=== PATIENT | male | born 1940 | race Caucasian/White ===

== ENCOUNTER → 2016-11-03 | Outpatient (CLI) | payer MEDICARE | LOC: LAB.NP 14:03 | PROVIDERS: ATTEND Family Medicine | DX: L03.031 Cellulitis of right toe (principal) ==

== ENCOUNTER 2016-11-16 10:48 | Emergency (ER) | payer MEDICARE ==
--- NOTE | 2016-11-16 11:32 | ED.PDOC ---
History of Present Illness - General Chief Complaint: Upper Extremity Injury Stated Complaint: hand pain, swelling Time Seen by Provider: 11/16/16 11:25 Source: patient Exam Limitations: no limitations - History of Present Illness Initial Comments: Mr. Lema 76 y/o male stated that got up from bed about 5am yesterday to turn on his table lamp but he got off balance tried to brace himself with his right hand hitting the wall causing pain /swelling on his right hand .denies head , neck,shoulder injuries. Occurred: yesterday Pain - Upper Extremity: moderate: Hand, right Method of Injury: fell Improving Factors: rest Worsening Factors: movement Associated Symptoms: pain Allergies/Adverse Reactions: Allergies Iodine Allergy (Verified 10/04/15 21:31) Povidone Iodine [From Betadine] Allergy (Verified 10/15/15 07:40) Home Medications: Ambulatory Orders Acetaminophen [Tylenol] 650 mg PO Q4H PRN 10/03/15 Aspirin [Aspirin EC] 81 mg PO DAILY 10/03/15 Gabapentin 300 mg PO BEDTIME 10/03/15 Ibuprofen [Advil] 400 mg PO Q4H 10/03/15 Mupirocin Calcium (Topical) [Bactroban] 2 % TOP BID 10/03/15 Nitroglycerin 0.4 mg Tab [Nitrostat] 0.4 mg SL Q5M PRN 10/03/15 Clindamycin HCl 300 mg PO Q8H #18 cap 10/06/15 Sulfamethoxazole-Trimethoprim [Bactrim Ds 800-160 mg] 1 tab PO BID #20 tab 10/06 Acetaminophen W/ Codeine [Tylenol W/ CODEINE #3] 1 ea PO Q4HR 10/15/15 Ufuvnwgfndm-Rjeoqyeg-Pqqi Sulf [Clear Eyes Cooling Comfor] 1 dona OP PRN PRN 04/23 Review of Systems - Review of Systems Constitutional: States: no symptoms reported EENTM: States: no symptoms reported Respiratory: States: no symptoms reported Cardiology: States: no symptoms reported Gastrointestinal/Abdominal: States: no symptoms reported Genitourinary: States: no symptoms reported Musculoskeletal: States: joint pain - right hand Skin: States: other Neurological: States: no symptoms reported Endocrine: States: no symptoms reported Hematologic/Lymphatic: States: no symptoms reported Past Medical History (General) - Patient Medical History Hx Seizures: No Hx Stroke: No Hx Dementia: No Hx Asthma: No Hx of COPD: Yes Hx Cardiac Disorders: Yes Hx Congestive Heart Failure: No Hx Pacemaker: No Hx Hypertension: Yes Hx Thyroid Disease: No Hx Diabetes: No Hx Gastroesophageal Reflux: No Hx Renal Disease: No Hx Cancer: No Hx of HIV: No Hx Hepatitis C: No Hx MRSA: No Surgical History: appendectomy Other Surgeries:: right hip,knee and foot - Vaccination History Hx Influenza Vaccination: Yes - 2015 - Social History Hx Tobacco Use: Yes - quit Hx Alcohol Use: No Hx Substance Use: No Hx Substance Use Treatment: No Hx Depression: No Hx Physical Abuse: No Hx Emotional Abuse: No - Activities of Daily Living Patient Lives Alone: No - lives with son Grooming Ability: Independent Eating (Feeding) Ability: Independent Toileting Ability: Independent Family Medical History - Family History Mother Family History: Unknown Living Status: Hx Family Diabetes: Yes - dad Hx Family Cancer: Yes - throat-mom Father Family History: Unknown Living Status: Physical Exam - Physical Exam General Appearance: Alert, No apparent distress Eyes, Ears, Nose, Throat Exam: PERRL/EOMI, normal ENT inspection, TMs normal, pharynx normal Neck: non-tender, full range of motion, supple, normal inspection Cardiovascular/Respiratory: regular rate, rhythm, no M/R/G, normal peripheral pulses, no JVD, normal breath sounds, no respiratory distress, extra beats Abdominal Exam: no organomegaly, no hernia Back Exam: normal inspection, no CVA tenderness, no vertebral tenderness Shoulder Exam: non-tender, no evidence of injury Elbow/Forearm Exam: non-tender, normal ROM Wrist Exam: bone tenderness, limited ROM Hand Exam: bone tenderness, ecchymosis - dorsal aspect hand right Progress - EKG/XRAY/CT XRAY: hand - right -no fracture noted Departure - Departure Clinical Impression: Contusion of hand with skin surface intact Fall at home Qualifiers: Encounter type: initial encounter Qualifier Code: (W19.XXXA) Unspecified fall, initial encounter Time of Disposition: 12:41 Disposition: Discharge to Home or Self Care Condition: Good Departure Forms: ED Discharge - Pt. Copy, Patient Portal Self Enrollment Instructions: DI for Contusion Home Medications: Ambulatory Orders Acetaminophen [Tylenol] 650 mg PO Q4H PRN 10/03/15 Aspirin [Aspirin EC] 81 mg PO DAILY 10/03/15 Gabapentin 300 mg PO BEDTIME 10/03/15 Ibuprofen [Advil] 400 mg PO Q4H 10/03/15 Mupirocin Calcium (Topical) [Bactroban] 2 % TOP BID 10/03/15 Nitroglycerin 0.4 mg Tab [Nitrostat] 0.4 mg SL Q5M PRN 10/03/15 Clindamycin HCl 300 mg PO Q8H #18 cap 10/06/15 Sulfamethoxazole-Trimethoprim [Bactrim Ds 800-160 mg] 1 tab PO BID #20 tab 10/06 Acetaminophen W/ Codeine [Tylenol W/ CODEINE #3] 1 ea PO Q4HR 10/15/15 Rqnnkvssqod-Xitamora-Zunt Sulf [Clear Eyes Cooling Comfor] 1 dona OP PRN PRN 04/23
--- NOTE | 2016-11-16 12:17 | RAD ---
EXAM DESCRIPTION: Right hand series. CLINICAL HISTORY: Right hand pain. COMPARISON: None. TECHNIQUE: Three views were submitted for evaluation. FINDINGS: Considerable degenerative change of the DIP joints and base of thumb compatible with osteoarthritis. No fracture, dislocation, or suspicious radiopaque foreign body is seen. Soft tissues are unremarkable. Further imaging could be considered if there is clinical concern for an occult scaphoid fracture (pain over the anatomical snuff box). IMPRESSION: No evidence of fracture on today's exam. Osteoarthritis of the hand noted. Electronically signed by: Devonte Patterson MD 11/16/2016 12:15
[2016-11-16 13:07] VITALS: BP 156/93; O2SAT 95
== END 2016-11-16 13:06 | disposition home or self-care (01) ==
LOC: ER 10:48
DX: S60.221A Contusion of right hand, initial encounter (principal); J44.9 Chronic obstructive pulmonary disease, unspecified; I10 Essential (primary) hypertension; Z79.899 Other long term (current) drug therapy; Z88.8 Allergy status to other drugs, medicaments and biological substances; Z79.82 Long term (current) use of aspirin; Z87.891 Personal history of nicotine dependence; W22.01XA Walked into wall, initial encounter; Y92.009 Unspecified place in unspecified non-institutional (private) residence as the place of occurrence of the external cause

== ENCOUNTER → 2016-11-23 | Outpatient (CLI) | payer MEDICARE ==
--- NOTE | 2016-11-23 15:25 | MRI ---
EXAM DESCRIPTION: MRI right foot without and with intravenous contrast CLINICAL HISTORY: 76 y/o M, OSTEOMYLETIS chronic since July subsequent evaluation COMPARISON: July 21, 2016 TECHNIQUE: MR imaging right foot without and with intravenous gadolinium FINDINGS: Previous amputation of the great toe at the MTP joint. There is ill-defined ossification extending medially from the metatarsal head likely due to the bone destruction fragmentation and reactive changes. There is probably a pathologic fracture through the area of osteomyelitis in the head of the 1st metatarsal. The osteonecrosis/ Freiberg's infraction is again visualized in the 3rd metatarsal head with dorsal subluxation at the MTP joint. Prominent fluid signal and intraosseous edema is noted in the 1st metatarsal head and neck with partial dorsal displacement of the head fragment and arthrosis/ edema of the hallux sesamoids. Mild degenerative change and subchondral edema of the 4th MTP joint. The edematous tissue/granulation at the amputation site has decreased in signal and size. The destructive process and edema in the 1st metatarsal head has decreased slightly but there is residual enhancement including rim enhancement within the 1st metatarsal head and neck region cannot exclude residual osteomyelitis. There appears to be increasing destruction at the pseudarthrosis of the 1st metatarsal head based on the appearance of the sagittal images. There is a more clear delineation of this area on the previous study. The rind of spur synovitis soft tissue mass and inflammation extends to the articulation of the sesamoids. There is also extensive tendinosis and scarring of the flexor hallucis tendon. 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 Electronically signed by: Gómez Marrero MD 11/23/2016 15:24
== END | disposition home or self-care (01) ==
LOC: MRI 13:00
PROVIDERS: ATTEND Podiatrist Foot & Ankle Surgery
DX: M86.9 Osteomyelitis, unspecified (principal)

== ENCOUNTER → 2016-12-12 | Outpatient (CLI) | payer MEDICARE | END | disposition home or self-care (01) | LOC: GMAB 14:17 | PROVIDERS: ATTEND Family Medicine | DX: I70.201 Unspecified atherosclerosis of native arteries of extremities, right leg (principal) ==

== ENCOUNTER → 2017-03-17 | Outpatient (CLI) | payer MEDICARE | LOC: GMAB 12:55 | PROVIDERS: ATTEND Family Medicine | DX: L03.115 Cellulitis of right lower limb (principal) ==

== ENCOUNTER → 2017-07-04 | Outpatient (CLI) | payer MEDICARE | END | disposition home or self-care (01) | LOC: NC 10:13 | PROVIDERS: ATTEND Family Medicine | DX: M86.171 Other acute osteomyelitis, right ankle and foot (principal); I11.9 Hypertensive heart disease without heart failure; J44.9 Chronic obstructive pulmonary disease, unspecified; Z12.5 Encounter for screening for malignant neoplasm of prostate; I10 Essential (primary) hypertension | CPT/HCPCS: 80053; 80061; 84443; 85025; G0103 ==

== ENCOUNTER 2017-07-26 10:33 | Inpatient (IN) | payer MEDICARE ==
[2017-07-26] MEDS ORDERED: CHLORHEXIDINE GLUCONATE 4 % 15 ML UD TOP ONE ×2 (11:14→21:05)
--- NOTE | 2017-07-26 11:20 | ED.PDOC ---
History of Present Illness - General Chief Complaint: Skin/Abrasion/Tear Stated Complaint: wound infection Time Seen by Provider: 07/26/17 10:38 Source: patient, RN notes reviewed, Vital Signs reviewed Exam Limitations: no limitations - History of Present Illness Initial Comments: Patient comes in with infection in the 3rd & 4th toes of his right foot. He has a history of osteomyolitis in that foot with removal of 1st & 2nd toes and 1st metatarsal. He noticed increased redness and swelling in his toes 2 days ago. Redness has spread up his foot to his ankle. He is being followed by Dr. Calix - Lead Architect who is seeing him weekly and doing liquid skin grafts on his area of amputation. Patient last saw him last week and the is out of town this week. Timing/Duration: getting worse - over past 2 days Severity: moderate Location: feet Improving Factors: nothing Worsening Factors: nothing Associated Symptoms: change in skin texture Allergies/Adverse Reactions: Allergies Iodine Allergy (Verified 07/26/17 10:58) Povidone Iodine [From Betadine] Allergy (Verified 07/26/17 10:58) Home Medications: Ambulatory Orders Gabapentin 300 mg PO BEDTIME 10/03/15 Albuterol Sulfate [Proair Hfa] 2 puff INH Q6H PRN 07/26/17 Tramadol HCl 50 mg PO Q6H PRN 07/26/17 Past Medical History (General) - Patient Medical History Hx Seizures: No Hx Stroke: No Hx Dementia: No Hx Asthma: No Hx of COPD: Yes Hx Cardiac Disorders: Yes - PVD Hx Congestive Heart Failure: No Hx Pacemaker: No Hx Hypertension: Yes Hx Thyroid Disease: No Hx Diabetes: No Hx Gastroesophageal Reflux: No Hx Renal Disease: No Hx Cancer: No Hx of HIV: No Hx Hepatitis C: No Hx MRSA: No - Vaccination History Hx Influenza Vaccination: No Hx Pneumococcal Vaccination: No - Social History Hx Tobacco Use: Yes - quit 1959's Hx Alcohol Use: No Hx Substance Use: No Hx Substance Use Treatment: No Hx Depression: No Hx Physical Abuse: No Hx Emotional Abuse: No - Female History Patient : No Family Medical History - Family History Mother Family History: Unknown Living Status: Hx Family Diabetes: Yes - dad Hx Family Cancer: Yes - throat-mom Father Family History: Unknown Living Status: Progress - Results/Orders Results/Orders: Laboratory Tests 07/26/17 07/26/17 07/26/17 11:30 11:30 11:30 WBC 8.1 RBC 4.27 L Hgb 14.8 Hct 42.8 MCV 100.2 H MCH 34.6 H MCHC 34.6 RDW 13.9 Plt Count 213 MPV 8.3 Absolute Neuts (auto) 5.20 Absolute Lymphs (auto) 1.70 Absolute Monos (auto) 0.80 Absolute Eos (auto) 0.30 Absolute Basos (auto) 0.10 Neutrophils % 64.3 Lymphocytes % 21.5 Monocytes % 9.5 H Eosinophils % 3.9 Basophils % 0.8 Sodium 133 L Potassium 3.6 Chloride 100 L Carbon Dioxide 21 Anion Gap 15.6 BUN 7 Creatinine 0.82 BUN/Creatinine Ratio 8.5 L Random Glucose 98 Serum Osmolality 264.3 L Lactic Acid 2.1 Calcium 8.9 Total Bilirubin 0.8 AST 28 ALT 20 Alkaline Phosphatase 49 Serum Total Protein 7.6 Albumin 4.2 Globulin 3.4 Albumin/Globulin Ratio 1.2 - EKG/XRAY/CT XRAY: Foot: Impaction fx 3rd metatarsal o/w stable per Radiologist Departure - Departure Clinical Impression: Cellulitis and abscess of foot Time of Disposition: 13:12 Disposition: Admit Patient Condition: Good Departure Forms: ED Discharge - Pt. Copy, Patient Portal Self Enrollment Referrals: Eloy Harris MD [Primary Care Provider] - 1-2 Weeks Home Medications: Ambulatory Orders Gabapentin 300 mg PO BEDTIME 10/03/15 Albuterol Sulfate [Proair Hfa] 2 puff INH Q6H PRN 07/26/17 Tramadol HCl 50 mg PO Q6H PRN 07/26/17 Decision To Admit - Decistion To Admit Decision to Admit Reason: Admit from ER Decision to Admit Date: 07/26/17 Decision to Admit Time: 13:13
--- NOTE | 2017-07-26 12:12 | RAD ---
EXAM DESCRIPTION: Foot,Right 3 Views CLINICAL HISTORY: 77 years, Male, cellulitis w/ Hx of osteomyelitis COMPARISON: Plain radiograph February 05, 2014. MRI study November 23, 2016, MRI FINDINGS: Amputation of the 1st digit at the level of the tarsometatarsal joints. Interval amputation 2nd digit at the level the metatarsal phalangeal joint. 2nd metatarsal head appears fairly normal. The 3rd and 4th metatarsal heads are flattened and irregular similar to prior MRI study. This probably Freiberg infraction Irregularity with periosteal reaction distal shaft proximal 3rd phalanx. Slight varus angulation. The appearance suggest a subacute impacted fracture. Chronic appearing soft tissue calcification medial to the distal 4th phalanx. IMPRESSION: 1. Postsurgical changes with interval amputation of the 2nd digit at the metatarsal joint 2. Flattening of the 3rd and 4th metatarsal heads similar to November MRI study probably due to Freiberg infraction 3. Irregularity of the distal 3rd phalanx with periosteal reaction suggesting a subacute impacted fracture proximal 3rd phalanx. 4. Other bones and joints otherwise stable without visualized bony destruction. Electronically signed by: Gus Reyes MD 07/26/2017 12:11 PM CDT
[2017-07-26] MEDS ORDERED: PIPERACILLIN/TAZOBACTAM 3.375 GM in SODIUM CHLORIDE 0.9% 100ML 100 ML IVPB ONE (13:10)
[2017-07-26] MEDS ORDERED: PIPERACILLIN/TAZOBACTAM 3.375 GM VIAL IVPB ONE (13:20)
[2017-07-26] MEDS ORDERED: SODIUM CHLORIDE 0.9% 100ML 100 ML IVPB ONE (13:20)
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
[2017-07-26] MEDS: HYDROcodone 5MG/APAP 325MG 1 EA TAB PO PRN (16:58)
[2017-07-26] MEDS ORDERED: MAGNESIUM HYDROXIDE 30 ML UD PO PRN (16:59)
[2017-07-26] MEDS ORDERED: SODIUM CHLORIDE 0.9% (FLUSH) 10 ML SYG IV PRN (16:59)
[2017-07-26] MEDS ORDERED: LEVALBUTEROL NEBS 1.25 MG/3 ML VIAL INH PRN (16:59)
[2017-07-26] MEDS ORDERED: IV SET AND CAP CHANGE INJ INJ SCH (17:00)
[2017-07-26] MEDS ORDERED: VANCOMYCIN HCL INJ 1,000 MG in SODIUM CHLORIDE 0.9% 250ML 250 ML IVPB SCH (17:30)
[2017-07-26] MEDS ORDERED: VANCOMYCIN PER PHARMACY INJ SCH ×2 (17:30→20:00)
[2017-07-26] MEDS ORDERED: levoFLOXacin 500MG IV 100 ML IVPB ONE (17:52)
[2017-07-26] MEDS: levoFLOXacin 500MG IV 500 MG in PREMIX BAG 1 BAG IVPB SCH (18:13)
[2017-07-26] MEDS: KCL 20 MEQ/NS 1,000 ML IVS PRN (18:13)
[2017-07-26] MEDS ORDERED: SODIUM CHLORIDE 0.9% 250ML 250 ML ONE (19:24)
[2017-07-26] MEDS ORDERED: VANCOMYCIN HCL INJ 1,000 MG VIAL IVPB ONE (19:25)
[2017-07-26] MEDS: VANCOMYCIN HCL INJ 1,000 MG in SODIUM CHLORIDE 0.9% 250ML 250 ML IVPB SCH (20:30)
[2017-07-26] MEDS: CHLORHEXIDINE GLUC 4% 15ML 45 ML, WATER FOR IRRIGATION 1,000 ML TOP SCH ×2 (21:06)
[2017-07-27] MEDS: HYDROcodone 5MG/APAP 325MG 1 EA TAB PO PRN ×3 (01:42→22:14)
[2017-07-27] MEDS: OMEPRAZOLE CAP 20 MG CAP PO SCH (06:32)
[2017-07-27] MEDS ORDERED: VANCOMYCIN HCL INJ 1,000 MG VIAL IVPB ONE ×2 (07:34→19:56)
[2017-07-27] MEDS ORDERED: SODIUM CHLORIDE 0.9% 250ML 250 ML ONE ×2 (07:34→19:56)
[2017-07-27] MEDS: VANCOMYCIN HCL INJ 1,000 MG in SODIUM CHLORIDE 0.9% 250ML 250 ML IVPB SCH ×2 (08:23→20:20)
[2017-07-27] MEDS: CHLORHEXIDINE GLUC 4% 15ML 45 ML, WATER FOR IRRIGATION 1,000 ML TOP SCH ×4 (09:17→20:27)
--- NOTE | 2017-07-27 11:14 | US ---
EXAM DESCRIPTION: Extremity,Lower RT Arteries CLINICAL HISTORY: 77 years Male, ischemic infection toes COMPARISON: None. FINDINGS: Bilateral lower extremity arterial Doppler shows no occluded segment. Multiphasic waveforms are present throughout. IMPRESSION: No flow-limiting stenosis observed. Electronically signed by: Romie Hays MD 07/27/2017 11:12 AM CDT
[2017-07-27] MEDS: KCL 20 MEQ/NS 1,000 ML IVS PRN (11:40)
--- NOTE | 2017-07-27 12:27 | PCM.CORE ---
Physician DVT/VTE - Nurse DVT Assessment & Total Each Risk Factor Represents 3 Points: Age over 75 years Each Risk Factor is 1 Point: Varicose Veins/Edema Legs DVT Assessment Score: 4 - 5 or more Very High Risk Treatments: Sequential Compression Device Pharmacological: Enoxaparin 40mg SQ Daily
[2017-07-27] MEDS: ENOXAPARIN SODIUM 40 MG/0.4 ML SYG SUBCU SCH (13:09)
--- NOTE | 2017-07-27 13:14 | PN ---
DATE: 07/27/17 SUBJECTIVE: In many ways, the patient states that his foot is less painful today. It is still quite red, especially involving the right toe. Appetite is pretty good. No shortness of breath, no nausea or vomiting. OBJECTIVE: VITAL SIGNS: Afebrile. Pulse 87. Blood pressure 163/80. Pulse oximetry 95% on room air. LUNGS: Diminished breath sounds. HEART: Regular. ABDOMEN: Soft. EXTREMITIES: Still with significant swelling and discoloration of the right fourth toe with the left toe as well as the presence of pus drainage is much improved today compared to yesterday. Cleansing and dressing will continue. LABORATORY: White count 9,900, hemoglobin 15.2 with a macrocytic/hyperchromic presentation. Chemistries show potassium up to 4, BUN 9, glucose 107, beta natriuretic peptide 122. Urinalysis shows a trace of hematuria. Culture of the wound initially shows probable skin contaminant with insignificant colony count. Whether this was an adequate specimen is to be determined. Lower extremity arterial ultrasound Doppler study reveals no flow limiting stenosis noted. Peripheral pulses are palpable as we attempt to continue the evaluation as to the etiology for the significant tissue loss noted in the right foot. ASSESSMENT: 1. Significant right foot infected third and fourth toes with pus formation, swelling and discoloration with at this time no evidence of an ischemic condition contributing to it. Continued podiatry observation and treatment important. 2. Probable peripheral vascular occlusive disease with evaluation and observation to continue. 3. Chronic dysphagia, probably secondary to esophageal strictures with the patient tolerating a pureed diet. 4. History of ethanol intake in the past with no evidence of withdrawal symptoms at this time. PLAN: We are continuing the combined vancomycin per pharmacy protocol as well as fluoroquinolone with Levaquin and continued local therapy. We will consider having Dr. Tapia see the patient the first of next week when he returns and he will then be able to assist with ongoing care. Slowly increase activity level. Continue with DVT prophylaxis. #[id number] [facility]
[2017-07-27] MEDS ORDERED: levoFLOXacin 500MG IV 100 ML IVPB ONE (17:15)
[2017-07-27] MEDS: levoFLOXacin 500MG IV 500 MG in PREMIX BAG 1 BAG IVPB SCH (17:38)
[2017-07-28] MEDS: KCL 20 MEQ/NS 1,000 ML IVS PRN (02:21)
[2017-07-28] MEDS: OMEPRAZOLE CAP 20 MG CAP PO SCH (06:34)
[2017-07-28] MEDS ORDERED: SODIUM CHLORIDE 0.9% 250ML 250 ML ONE ×2 (07:47→19:18)
[2017-07-28] MEDS ORDERED: VANCOMYCIN HCL INJ 1,000 MG VIAL IVPB ONE ×2 (07:48→19:18)
[2017-07-28] MEDS: HYDROcodone 5MG/APAP 325MG 1 EA TAB PO PRN (07:53)
[2017-07-28] MEDS: VANCOMYCIN HCL INJ 1,000 MG in SODIUM CHLORIDE 0.9% 250ML 250 ML IVPB SCH ×2 (07:55→20:11)
[2017-07-28] MEDS: CHLORHEXIDINE GLUC 4% 15ML 45 ML, WATER FOR IRRIGATION 1,000 ML TOP SCH ×4 (10:18→20:53)
[2017-07-28] MEDS: ENOXAPARIN SODIUM 40 MG/0.4 ML SYG SUBCU SCH (13:21)
[2017-07-28] MEDS: SODIUM CHLORIDE 0.9% (FLUSH) 10 ML SYG IV SCH ×2 (13:22→20:11)
--- NOTE | 2017-07-28 13:42 | PN ---
SUPERVISING PHYSICIAN: Dioni Law MD DATE: 07/28/17 SUBJECTIVE: The patient is lying in his hospital bed. He has no complaints other than he would like to get up and walk around. Pain is minimal in his foot. OBJECTIVE: VITAL SIGNS: Afebrile. Heart rate 63. Blood pressure 158/72. Respiratory rate 18. O2 saturation 95% on room air. LUNGS: Essentially clear to auscultation bilaterally. CARDIAC: Regular rate and rhythm. ABDOMEN: Soft, nondistended, nontender. Bowel sounds are positive. EXTREMITIES: No cyanosis or edema. His bilateral pedal pulses are palpable at + 2. He has a dressing to the right foot that is dry and intact. NEUROLOGIC: Awake, alert and oriented times three. LABORATORY: There are no labs or films to report today. ASSESSMENT: 1. Cellulitis of the right foot involving the third and fourth toes with pus, swelling and discoloration. There is no evidence of an ischemic condition contributing to it. 2. Questionable peripheral vascular occlusive disease with evaluation and observation to continue. 3. Chronic dysphagia, probably secondary to esophageal strictures with the patient tolerating a pureed diet. 4. History of significant alcohol intake in the past with no evidence of withdrawal symptoms at this point. PLAN: We will continue present supportive care. I am still awaiting the culture reports on his toes so we can make sure he is on appropriate antibiotics. I have discontinued his IV fluids and we will continue his vancomycin and Levaquin for an additional day. Hopefully he can go home tomorrow with close followup with Dr. Tapia for evaluation of the toes in case they need to be amputated. I have also encouraged him to ambulate on his own as long as his dressing is intact. I have encouraged good pulmonary hygiene. I have ordered routine labs for in the morning. We will continue to monitor the patient closely and follow as needed. Dr. Law is the collaborating physician and available for consultation. #[id number] [facility]
[2017-07-28] MEDS ORDERED: levoFLOXacin 500MG IV 100 ML IVPB ONE (17:10)
[2017-07-28] MEDS: levoFLOXacin 500MG IV 500 MG in PREMIX BAG 1 BAG IVPB SCH (17:14)
[2017-07-28] MEDS ORDERED: diphenhydrAMINE HCL 50 MG/ML VIAL IV PRN (18:27)
[2017-07-29] MEDS: HYDROcodone 5MG/APAP 325MG 1 EA TAB PO PRN ×2 (04:38→08:55)
[2017-07-29] MEDS: OMEPRAZOLE CAP 20 MG CAP PO SCH (06:39)
[2017-07-29] MEDS ORDERED: SODIUM CHLORIDE 0.9% 250ML 250 ML ONE (07:35)
[2017-07-29] MEDS ORDERED: VANCOMYCIN HCL INJ 1,000 MG VIAL IVPB ONE (07:35)
[2017-07-29] MEDS: VANCOMYCIN HCL INJ 1,000 MG in SODIUM CHLORIDE 0.9% 250ML 250 ML IVPB SCH (08:05)
[2017-07-29] MEDS: SODIUM CHLORIDE 0.9% (FLUSH) 10 ML SYG IV SCH (08:57)
[2017-07-29] MEDS: CHLORHEXIDINE GLUC 4% 15ML 45 ML, WATER FOR IRRIGATION 1,000 ML TOP SCH ×2 (08:59)
[2017-07-29] MEDS ORDERED: levoFLOXacin 500 MG TAB PO SCH (09:00)
[2017-07-29] MEDS: ENOXAPARIN SODIUM 40 MG/0.4 ML SYG SUBCU SCH (13:07)
[2017-07-29] MEDS ORDERED: INFLUENZA VIRUS VACC (ADULT) 0.5 ML SYG IM ONE (13:08)
[2017-07-29 15:23] VITALS: BP 128/76; TEMP 98; O2SAT 95
--- NOTE | 2017-07-29 19:28 | DS ---
SUPERVISING PHYSICIAN: Dioni Law M.D. DISCHARGE DIAGNOSIS: 1. Cellulitis of the right foot involving the third and fourth toes with pus, swelling and discoloration. There is no evidence of an ischemic condition contributing to it. 2. Questionable peripheral vascular occlusive disease with evaluation and observation to continue. 3. Chronic dysphagia, probably secondary to esophageal strictures with the patient tolerating a pureed diet. 4. History of significant alcohol intake in the past with no evidence of withdrawal symptoms at this point. HISTORY OF PRESENT ILLNESS: This is a 77 year-old male patient who was admitted to the hospital from the Emergency Room due to worsening infection with pus and drainage as well as pain involving the third and fourth toes of the right foot. His condition has worsened over the previous week prior to his admission. His primary care physician is Dr. Harris. He does have a significant history of having cellulitis. In fact, he had his right big toenail partially removed and had a subsequent infection that eventually required amputation of the distal big toe because of osteomyelitis. It then required a second procedure to remove more bones. In the spring of this year, his second toe became involved with significant ulceration and discoloration, and it also require amputation. When he came to the Emergency Room, the 2 toes had flared up significantly. His Home Health nurse had seen him earlier and referred him to the Emergency Room. The patient was admitted to the hospital for antibiotics and supportive care. A lower extremity ultrasound was done that per radiology interpretation showed no flow-limiting stenosis observed. A foot x-ray was also done and per radiology interpretation showed postsurgical changes with interval amputation of the second digit at the metatarsal joint, flattening of the third and fourth metatarsal heads similar to the November MRI study probably due to [place] infraction, irregularity of the distal third phalanx with periosteal reaction suggesting a subacute impacted fracture of the proximal third phalanx. Other bones and joints otherwise stable without visualized bony destruction. HOSPITAL COURSE: His WBCs were all within normal limits and initially his sodium was slightly low at 133 and chloride 100. His wound was cultured and he was placed on Levaquin and vancomycin. On admission, his lower leg was quite edematous with purulent fluid coming from his toes. He improved daily. Dressing changes were done daily and the edema has completely subsided. He is still somewhat red in the distal portion of the foot. There is minimal drainage from that wound. Although his wound culture was negative and showed probable skin contaminant, I am not sure whether it was an adequate sample. His vital signs remained stable. He was afebrile. He will be discharged home today. DISCHARGE PLAN: The patient will be discharged home in stable condition. He is to resume his previous activity and his previous diet. He will be discharged on Levaquin as well as Doxycycline and some Align probiotics. He has a followup appointment with Dr. Harris on 08/07/17 at 10:45. He will need a referral to Dr. Tapia after completion of his antibiotics as he may need further amputation. I have called Manish, his Home Health provider, and they will do daily dressing changes until he sees Dr. Harris. He is to followup with Dr. Harris or return to the hospital for any further problems or complications. DISCHARGE MEDICATIONS: 1. Gabapentin. 2. Tramadol. 3. Align. 4. Doxycycline. 5. Levofloxacin. Dr. Law is the collaborating physician available for consultation. #[id number] [facility]
== END 2017-07-29 15:10 | disposition home health service (06) | DRG 603 ==
LOC: ER 10:33 → MS 13:26
PROVIDERS: ADMIT Emergency Medicine; ATTEND Nurse Practitioner Acute Care
DX: L03.031 Cellulitis of right toe (principal); L03.115 Cellulitis of right lower limb; E87.1 Hypo-osmolality and hyponatremia; K22.2 Esophageal obstruction; L97.519 Non-pressure chronic ulcer of other part of right foot with unspecified severity; G62.9 Polyneuropathy, unspecified; I25.10 Atherosclerotic heart disease of native coronary artery without angina pectoris; I73.9 Peripheral vascular disease, unspecified; J44.9 Chronic obstructive pulmonary disease, unspecified; I10 Essential (primary) hypertension; Z89.411 Acquired absence of right great toe; Z91.048 Other nonmedicinal substance allergy status

== ENCOUNTER 2017-09-08 18:18 | Emergency (ER) | payer MEDICARE ==
--- NOTE | 2017-09-08 19:13 | ED.PDOC ---
History of Present Illness - General Chief Complaint: Skin/Abrasion/Tear Stated Complaint: right foot wounds Time Seen by Provider: 09/08/17 19:12 Source: patient Exam Limitations: no limitations - History of Present Illness Initial Comments: Nadya Hines 77 y/o male was advised by home health nurse to come to [facility] ER after he reported some drainage on right foot.Had toe amputation in the past for non healing wound.No history of recent trauma.He stated he follows up with orthopedist in [place].Denies fever,pain. Timing/Duration: changing over time Severity: moderate Improving Factors: nothing Worsening Factors: nothing Associated Symptoms: denies symptoms Allergies/Adverse Reactions: Allergies Iodine Allergy (Verified 07/26/17 17:16) Povidone Iodine [From Betadine] Allergy (Verified 07/26/17 17:16) Home Medications: Ambulatory Orders Gabapentin 300 mg PO BEDTIME 10/03/15 Tramadol HCl 50 mg PO Q4H PRN 07/26/17 Bifidobacterium Infantis [Align] 4 mg GT BID #30 cap 07/29/17 Doxycycline Hyclate 100 mg PO BID #20 cap 07/29/17 levoFLOXacin [Levaquin] 500 mg PO Q24H #7 tab 07/29/17 Levofloxacin [Levaquin] 250 mg PO DAILY #14 tab 09/08/17 Review of Systems - Review of Systems Constitutional: States: no symptoms reported EENTM: States: no symptoms reported Respiratory: States: no symptoms reported Cardiology: States: no symptoms reported Gastrointestinal/Abdominal: States: no symptoms reported Genitourinary: States: no symptoms reported Musculoskeletal: States: see HPI Skin: States: see HPI Neurological: States: no symptoms reported Endocrine: States: no symptoms reported Past Medical History (General) - Patient Medical History Hx Seizures: No Hx Stroke: No Hx Dementia: No Hx Asthma: Yes Hx of COPD: Yes Hx Cardiac Disorders: Yes - PVD Hx Congestive Heart Failure: No Hx Pacemaker: No Hx Hypertension: Yes Hx Thyroid Disease: No Hx Diabetes: No Hx Gastroesophageal Reflux: No Hx Renal Disease: No Hx Cancer: No Hx of HIV: No Hx Hepatitis C: No Hx MRSA: No Surgical History: appendectomy - Vaccination History Hx Influenza Vaccination: Yes Hx Pneumococcal Vaccination: Yes - Social History Hx Tobacco Use: Yes Hx Alcohol Use: Yes - drink 3 light beers/day Hx Substance Use: No Hx Substance Use Treatment: No Hx Depression: No Hx Physical Abuse: No Hx Emotional Abuse: No - Female History Patient : No Family Medical History - Family History Mother Family History: Unknown Living Status: Hx Family Diabetes: Yes - dad Hx Family Cancer: Yes - throat-mom Father Family History: Unknown Living Status: Physical Exam - Physical Exam General Appearance: Alert, No apparent distress Eye Exam: bilateral normal Ears, Nose, Throat: hearing grossly normal, normal ENT inspection Neck: non-tender, full range of motion, supple Respiratory: chest non-tender, lungs clear, normal breath sounds Cardiovascular/Chest: normal peripheral pulses, regular rate, rhythm, no murmur Peripheral Pulses: radial,right: 2+, radial,left: 2+, dorsalis pedis,right: 2+, dorsalis pedis,left: 2+ Gastrointestinal/Abdominal: normal bowel sounds, non tender, soft Extremity: no pedal edema, no calf tenderness, other - toe amputations right foot,with rest of toes curving intoeing redness right 4th toe/swelling Progress - Progress Progress: 09/08/17 22:15 Last Vital Signs Temp 95.7 F L 09/08/17 21:19 Pulse 59 L 09/08/17 21:19 Resp 18 09/08/17 21:19 BP 153/80 09/08/17 21:19 Pulse Ox 96 09/08/17 21:19 - EKG/XRAY/CT XRAY: foot right-? osteomyelitis distal phalanx 4th toe Departure - Departure Clinical Impression: Foot pain, right, Cellulitis of fourth toe, right Time of Disposition: 22:11 Disposition: Discharge to Home or Self Care Condition: Fair Departure Forms: ED Discharge - Pt. Copy, Patient Portal Self Enrollment Instructions: DI for Cellulitis -- Adult, Cellulitis Referrals: Eloy Harris MD [Primary Care Provider] - 1-2 Weeks Prescriptions: Levofloxacin [Levaquin] 250 mg PO DAILY #14 tab Home Medications: Ambulatory Orders Gabapentin 300 mg PO BEDTIME 10/03/15 Tramadol HCl 50 mg PO Q4H PRN 07/26/17 Bifidobacterium Infantis [Align] 4 mg GT BID #30 cap 07/29/17 Doxycycline Hyclate 100 mg PO BID #20 cap 07/29/17 levoFLOXacin [Levaquin] 500 mg PO Q24H #7 tab 10/21/17 Levofloxacin [Levaquin] 250 mg PO DAILY #14 tab 09/08/17 Additional Instructions: Follow up with your orthopedist in [place];Avoid weight bearing on right foot use scooter walker
--- NOTE | 2017-09-08 20:47 | RAD ---
EXAM DESCRIPTION: Foot,Right 3 Views CLINICAL HISTORY: drainage COMPARISON: None FINDINGS: 3 views were submitted. The first metatarsal and phalanges are missing. The second phalanges are also absent. There is dysmorphology of the third proximal phalanx. No radiopaque foreign body is identified. There is fragmentation and partial absence of the fourth distal phalanx. There is overlying soft tissue irregularity and osteomyelitis is not excluded. IMPRESSION: Possible osteomyelitis of the fourth distal phalanx. Clinical correlation will be helpful. Electronically signed by: Hi Laguna 09/08/2017 8:45 PM [facility]
[2017-09-08] MEDS ORDERED: levoFLOXacin 500MG IV 500 MG in PREMIX BAG 1 BAG IVPB ONE (21:10)
[2017-09-08] MEDS ORDERED: levoFLOXacin 500MG IV 100 ML IVPB ONE (21:13)
[2017-09-08 21:50] VITALS: TEMP 95.7; O2SAT 96
[2017-09-08 22:48] VITALS: BP 143/83
== END 2017-09-08 22:49 | disposition home or self-care (01) ==
LOC: ER 18:18
DX: L03.031 Cellulitis of right toe (principal); J44.9 Chronic obstructive pulmonary disease, unspecified; I10 Essential (primary) hypertension; I73.9 Peripheral vascular disease, unspecified; Z79.899 Other long term (current) drug therapy; Z88.8 Allergy status to other drugs, medicaments and biological substances
CPT/HCPCS: 73630; J1956

== ENCOUNTER → 2017-10-19 | Outpatient (CLI) | payer MEDICARE ==
--- NOTE | 2017-10-20 08:50 | RAD ---
EXAM DESCRIPTION: Hand,Right 3 Views CLINICAL HISTORY: PAIN IN RIGHT HAND COMPARISON: October 12, 2017 IMPRESSION: 3 views of the right hand demonstrate stable appearance to obliquely oriented fracture ulnar margin distal metadiaphysis of the third metacarpal without clear intra-articular extension. Slight fracture apex angulation dorsally, otherwise not displaced. Mild indistinctness of the fracture margins is seen that could represent early healing. No significant periosteal reaction or bridging callus formation is seen at this time. 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 Diffuse osteopenia of the osseous structures. Mild improvement of soft tissue swelling over the dorsum of the hand. Moderate vascular calcifications are seen. Electronically signed by: Walt Davis MD 10/20/2017 8:49 AM [facility]
== END | disposition home or self-care (01) ==
LOC: RAD 07:35
PROVIDERS: ATTEND Orthopaedic Surgery
DX: M79.641 Pain in right hand (principal)

== ENCOUNTER → 2017-10-26 | Outpatient (CLI) | payer MEDICARE | END | disposition home or self-care (01) | LOC: GMAB 14:06 | PROVIDERS: ATTEND Family Medicine | DX: L03.115 Cellulitis of right lower limb (principal) ==

== ENCOUNTER → 2017-10-30 | Outpatient (CLI) | payer MEDICARE ==
--- NOTE | 2017-10-30 11:57 | RAD ---
EXAM DESCRIPTION: Hand,Right 3 Views CLINICAL HISTORY: CLOSED FX OF METACARPAL BONE COMPARISON: Right hand radiograph dated October 19, 2017 TECHNIQUE: AP, oblique, and lateral views of the right hand. Findings/impression: Overall, no significant change compared to October 19, 2017. Redemonstration of stable appearing obliquely oriented fracture ulnar margin of the distal metaphysis of the third metacarpal without radiographic evidence for intra-articular extension. There is minimal fracture apex angulation dorsally, unchanged compared to previous. There is mild indistinctness of the fracture margin, suggesting early healing. However, there is no significant periosteal reaction or bridging callus formation. Redemonstration of moderate to severe osteoarthritis of the first MCP joint and first CMC joint as well as second MCP joint. Diffuse osteopenia of the osseous structure. Moderate vascular calcification noted about the wrist. Electronically signed by: Jason Cavazos MD 10/30/2017 11:56 AM [facility]
== END | disposition home or self-care (01) ==
LOC: RAD 08:54
PROVIDERS: ATTEND Orthopaedic Surgery
DX: S62.300D Unspecified fracture of second metacarpal bone, right hand, subsequent encounter for fracture with routine healing (principal)

== ENCOUNTER → 2017-11-23 | Outpatient (CLI) | payer MEDICARE ==
--- NOTE | 2017-11-25 11:38 | RAD ---
Frontal, lateral, and oblique views of the right hand. Indication: UNSPECIFIED FRACTURE OF SECOND METACARPAL BONE Comparison: October 28, 2017. Impression: The sagittal/oblique fracture of the ulnar margin of the distal shaft and metaphysis of the third metacarpal is redemonstrated with stable alignment. No significant progressed callus formation identified. The fracture remains incompletely united. A component of nonunion could be present. No new fracture identified. The degenerative changes throughout the hand and wrist including severe STT joint and first CMC joint osteoarthritis redemonstrated. Osteopenia. If this is a new finding, DEXA scan recommended as well as evaluation for possible osteoporosis treatment. Electronically signed by: Jesus Alberto Umanzor MD 11/25/2017 11:37 AM [facility]
== END ==
LOC: RAD 08:27
PROVIDERS: ATTEND Orthopaedic Surgery
DX: S62.300D Unspecified fracture of second metacarpal bone, right hand, subsequent encounter for fracture with routine healing (principal); M19.041 Primary osteoarthritis, right hand

== ENCOUNTER → 2017-12-14 | Outpatient (CLI) | payer MEDICARE ==
--- NOTE | 2017-12-14 12:43 | RAD ---
EXAM DESCRIPTION: Hand,Right 3 Views CLINICAL HISTORY: 2ND METACARPAL FX COMPARISON: Previous study November 23, 2017 TECHNIQUE: AP, LATERAL, AND OBLIQUE FINDINGS: Three-view right hand shows healing third metacarpal fracture. No change in alignment since previous study. No callus formation is yet visible. No acute fracture or dislocation. There is no focal destructive bone lesion. Advanced degenerative osteoarthritic changes are seen in the lateral carpus. Bones appear osteopenic with prominent trabecular pattern. There is no radiopaque foreign body. IMPRESSION: No change in alignment of the right third metacarpal fracture. Electronically signed by: Del Valdes MD 12/14/2017 12:42 PM [facility]
== END ==
LOC: RAD 08:40
PROVIDERS: ATTEND Orthopaedic Surgery
DX: S62.300D Unspecified fracture of second metacarpal bone, right hand, subsequent encounter for fracture with routine healing (principal)

== ENCOUNTER → 2018-01-04 | Outpatient (CLI) | payer MEDICARE ==
--- NOTE | 2018-01-05 09:34 | RAD ---
EXAM DESCRIPTION: Hand,Right 3 Views CLINICAL HISTORY: FRACTURE OF METACARPAL COMPARISON: Previous study December 14, 2017 TECHNIQUE: AP, LATERAL, AND OBLIQUE FINDINGS: Three-view right hand shows no dislocation. There is no lytic bone lesion. Hyperextension at the first metacarpal phalangeal joint. Advanced osteoarthritic changes of the lateral carpus. Deformity of the distal third metacarpal is consistent with impacted oblique fracture involving the distal diaphysis. There is foreshortening of the third metacarpal. Bones appear osteopenic or osteoporotic. There is no radiopaque foreign body. Compared to previous study, no change in configuration of the fracture site. No callus formation is seen. IMPRESSION: Oblique fracture of the distal diaphysis of the right third metacarpal without change in alignment. Electronically signed by: Del Valdes MD 01/05/2018 9:32 AM CDT
== END ==
LOC: RAD 08:00
PROVIDERS: ATTEND Orthopaedic Surgery
DX: S62.300D Unspecified fracture of second metacarpal bone, right hand, subsequent encounter for fracture with routine healing (principal)

== ENCOUNTER → 2018-08-10 | Outpatient (CLI) | payer MEDICARE | LOC: NC 10:37 | PROVIDERS: ATTEND Family Medicine | DX: I10 Essential (primary) hypertension (principal); R94.6 Abnormal results of thyroid function studies; S91.301D Unspecified open wound, right foot, subsequent encounter; J44.9 Chronic obstructive pulmonary disease, unspecified; M19.90 Unspecified osteoarthritis, unspecified site ==

== ENCOUNTER 2018-08-27 09:38 | Inpatient (IN) | payer MEDICARE ==
--- NOTE | 2018-08-27 09:57 | ED.PDOC ---
History of Present Illness - General Chief Complaint: ENT Problem Stated Complaint: difficulty swallowing Time Seen by Provider: 08/27/18 09:50 Source: patient, family Exam Limitations: no limitations - History of Present Illness Initial Comments: Nadya Lema 78 y/o male with reported difficulty swallowing for the last one year and gi evaluation and esophageal dilatation was already done but came to ER mostly for his urinary incontinence problem.declined to see his primary MD.No fever ,nausea vomiting,no hematemesis,no melena,no SOB.Feeling weak for the last 4 days. Timing/Duration: gradual Severity: moderate EENT Location: other - esophageal stricture Prearrival Treatment: no prearrival treatment Presenting Symptoms: long standing history of difficulty swallowing and urinary incontinence Improving Factors: nothing Worsening Factors: other - urianting Associated Symptoms: other - see hpi Allergies/Adverse Reactions: Allergies Iodine Allergy (Verified 07/26/17 17:16) Povidone Iodine [From Betadine] Allergy (Verified 07/26/17 17:16) Home Medications: Ambulatory Orders Acetaminophen W/ Codeine [Tylenol W/ CODEINE #3] 1 ea PO Q12H PRN 08/27/18 Albuterol Sulfate [Proair Hfa] 2 puff INH Q6H PRN 08/27/18 Aspirin [Aspirin Childrens] 81 mg PO DAILY 08/27/18 Dwwezvthkwo-Hscgvzjy-Iwez Sulf [Clear Eyes Seasonal Relie 0.012-0.2-0.25 %] 1 dona OP DAILY 08/27/18 Nitroglycerin [Nitrostat] 0.4 mg SL Q5MIN PRN 08/27/18 RX: Gabapentin 100 mg PO TID 08/27/18 Review of Systems - Review of Systems Constitutional: States: no symptoms reported EENTM: States: see HPI Respiratory: States: no symptoms reported Cardiology: States: no symptoms reported Gastrointestinal/Abdominal: States: no symptoms reported Genitourinary: States: see HPI Musculoskeletal: States: no symptoms reported Skin: States: no symptoms reported Neurological: States: no symptoms reported Past Medical History (General) - Patient Medical History Hx Seizures: No Hx Stroke: No Hx Dementia: No Hx Asthma: Yes Hx of COPD: Yes Hx Cardiac Disorders: Yes - PVD Hx Congestive Heart Failure: No Hx Pacemaker: No Hx Hypertension: Yes Hx Thyroid Disease: No Hx Diabetes: No Hx Gastroesophageal Reflux: No Hx Renal Disease: No Hx Cancer: No Hx of HIV: No Hx Hepatitis C: No Hx MRSA: No Surgical History: appendectomy, other - toe amputation right foot - Vaccination History Hx Influenza Vaccination: Yes Hx Pneumococcal Vaccination: Yes - Social History Hx Tobacco Use: Yes Hx Alcohol Use: Yes - drink 3 light beers/day Hx Substance Use: No Hx Substance Use Treatment: No Hx Depression: No Hx Physical Abuse: No Hx Emotional Abuse: No - Activities of Daily Living Grooming Ability: Standby Assistance Eating (Feeding) Ability: Standby Assistance Toileting Ability: Standby Assistance - Female History Patient : No Family Medical History - Family History Mother Family History: Unknown Living Status: Hx Family Diabetes: Yes - dad Hx Family Cancer: Yes - throat-mom Father Family History: Unknown Living Status: Physical Exam - Physical Exam General Appearance: Alert, Anxious, No apparent distress Eye Exam: bilateral normal Ear Exam: bilateral ear: auricle normal, canal normal, TM normal Nasal Exam: normal inspection Throat Exam: normal mouth inspection, pharynx normal Neck: non-tender, full range of motion, supple Cardiovascular/Respiratory: regular rate, rhythm, no M/R/G, normal peripheral pulses, no JVD Abdominal Exam: no organomegaly, tenderness - left side abdomen, other - rectal prostate moderately enlarged non tender prostate,firm Neurologic: alert, oriented x 3 Skin Exam: normal color, warm/dry Comments: Extremities-Right foot-toe amputations Progress - Progress Progress: 08/27/18 10:25 Vital Signs - 8 hr 08/27/18 09:45 Temperature 96.0 F L Pulse Rate [ 83 left brachial] Respiratory 24 Rate Blood Pressure 112/75 [left brachial] O2 Sat by Pulse 98 Oximetry 08/27/18 12:31 Had 1850 cc of urine of residual urine after trimble catht - Results/Orders Results/Orders: 08/27/18 09:57 CARDIAC PANEL,ER Stat HEPATIC FUNCTION PANEL Stat URINALYSIS Stat 08/27/18 10:00 Catheter:Trimble QSHIFT 08/27/18 10:25 URINE CULTURE W/COLONY COUNT Stat 08/27/18 12:07 BLOOD CULTURE Stat 08/27/18 12:21 URINE CULTURE W/COLONY COUNT Stat 08/27/18 13:16 Sodium Chloride 0.9% 1000ML [Ns 1000 ml] 1,000 ml IVS .QD Laboratory Results - last 24 hr 08/27/18 08/27/18 08/27/18 10:25 11:56 11:56 WBC 24.6 H* RBC 4.32 L Hgb 14.6 Hct 42.4 MCV 98.2 H MCH 33.7 H MCHC 34.3 RDW 13.9 Plt Count 269 MPV 8.1 Absolute Neuts (auto) Not Reportable Absolute Lymphs (auto) Not Reportable Absolute Monos (auto) Not Reportable Absolute Eos (auto) Not Reportable Neutrophils % Not Reportable Neutrophils % (Manual) 76.0 Lymphocytes % Not Reportable Lymphocytes % (Manual) 9.0 Monocytes % Not Reportable Monocytes % (Manual) Not Reportable Eosinophils % Not Reportable Basophils % Not Reportable Band Neutrophils 15.0 H* Platelet Estimate Normal Normal RBC Morphology Normal rbc morph PT 11.4 H INR 1.14 PTT (SP) 30.7 Sodium 123 L Potassium 3.3 L Chloride 92 L Carbon Dioxide 21 Anion Gap 13.3 BUN 55 H Creatinine 2.51 H BUN/Creatinine Ratio 21.9 H Random Glucose 150 H Serum Osmolality 265.8 L Lactic Acid Calcium 8.7 Magnesium 2.3 Total Bilirubin 1.2 H Direct Bilirubin 0.6 H Indirect Bilirubin 0.6 AST 82 H ALT 66 H Alkaline Phosphatase 55 Creatine Kinase 73 CK-MB (CK-2) 3.4 CK-MB (CK-2) % Not Reportable Troponin I 0.03 Serum Total Protein 6.7 Albumin 2.9 L Urine Color Yellow Urine Appearance Clear Urine pH 6.0 Ur Specific [place] 1.015 Urine Protein 30 Urine Glucose (UA) Negative Urine Ketones Negative Urine Blood Moderate H Urine Nitrite Negative Urine Bilirubin Negative Urine Urobilinogen 0.2 Ur Leukocyte Esterase Moderate H Urine RBC 5-10 H Urine WBC >50 H Ur Epithelial Cells 0-1 Urine Bacteria 4+ H 08/27/18 12:26 WBC RBC Hgb Hct MCV MCH MCHC RDW Plt Count MPV Absolute Neuts (auto) Absolute Lymphs (auto) Absolute Monos (auto) Absolute Eos (auto) Neutrophils % Neutrophils % (Manual) Lymphocytes % Lymphocytes % (Manual) Monocytes % Monocytes % (Manual) Eosinophils % Basophils % Band Neutrophils Platelet Estimate Normal RBC Morphology PT INR PTT (SP) Sodium Potassium Chloride Carbon Dioxide Anion Gap BUN Creatinine BUN/Creatinine Ratio Random Glucose Serum Osmolality Lactic Acid 2.4 H* Calcium Magnesium Total Bilirubin Direct Bilirubin Indirect Bilirubin AST ALT Alkaline Phosphatase Creatine Kinase CK-MB (CK-2) CK-MB (CK-2) % Troponin I Serum Total Protein Albumin Urine Color Urine Appearance Urine pH Ur Specific [place] Urine Protein Urine Glucose (UA) Urine Ketones Urine Blood Urine Nitrite Urine Bilirubin Urine Urobilinogen Ur Leukocyte Esterase Urine RBC Urine WBC Ur Epithelial Cells Urine Bacteria - EKG/XRAY/CT XRAY: chest - no acute infiltrate Departure - Departure Clinical Impression: Renal insufficiency, History of peripheral arterial disease Urinary tract infection Qualifiers: Urinary tract infection type: site unspecified Hematuria presence: without hematuria Qualified Code(s): N39.0 - Urinary tract infection, site not specified Time of Disposition: 13:33 Disposition: Admit Patient Condition: Fair Departure Forms: Patient Portal Self Enrollment Referrals: PRAMOD MANDEL MD [Primary Care Provider] - 1-2 Weeks Home Medications: Ambulatory Orders Acetaminophen W/ Codeine [Tylenol W/ CODEINE #3] 1 ea PO Q12H PRN 08/27/18 Albuterol Sulfate [Proair Hfa] 2 puff INH Q6H PRN 08/27/18 Aspirin [Aspirin Childrens] 81 mg PO DAILY 08/27/18 Klkztbfvtno-Ksomlnzn-Sdmo Sulf [Clear Eyes Seasonal Relie 0.012-0.2-0.25 %] 1 dona OP DAILY 08/27/18 Nitroglycerin [Nitrostat] 0.4 mg SL Q5MIN PRN 08/27/18 RX: Gabapentin 100 mg PO TID 08/27/18 Decision To Admit - Decistion To Admit Decision to Admit Reason: Admit from ER Decision to Admit Date: 08/27/18 - D/W Hubert Jansen-ANP/Hospitalist Decision to Admit Time: 13:31
--- NOTE | 2018-08-27 10:39 | RAD ---
EXAM DESCRIPTION: Chest,1 View: CR. CLINICAL HISTORY: difficulty swallowing COMPARISON: CT scan of abdomen and pelvis on the same visit. One view portable chest 05/05/2011. TECHNIQUE: 1 view portable 1026 hours, upright position. FINDINGS: Moderate inspiration. Stable densities bilateral bases. No acute infiltrate. No pleural effusion or pneumothorax. Cardiopulmonary vascular structures are unremarkable. IMPRESSION: Stable bibasilar densities in the lungs in a senescent chest, since April 2011. No acute infiltrate. Electronically signed by: Hi Paniagua MD 08/27/2018 10:38 AM [facility]
--- NOTE | 2018-08-27 12:11 | CT ---
EXAM DESCRIPTION: Abdomen/Pelvis w/o Contrast: Computed Tomography. CLINICAL HISTORY: pain left side COMPARISON: CT scan abdomen with contrast 05/20/2010. TECHNIQUE: Spiral-axial scans 2.5 x 2.5 mm intervals through the abdomen and pelvis without oral or IV contrast. Coronal and sagittal 2.0 mm reconstructions. Total Exam DLP: 76.65 mGy-cm. This exam was performed according to our departmental CT dose-optimization program which includes automated exposure control, adjustment of the mA and/or kV according to patient size and/or use of iterative reconstruction technique; to reduce radiation dose to as low as reasonably achievable (ALARA). FINDINGS: Lung bases and pleura: Atelectasis versus groundglass infiltrates in the bases more right than left and also in the inferior lingula. Liver, stomach, spleen, and adrenal glands: Negative. Pancreas, Gallbladder, and Ducts: Enlarged gallbladder with multiple partially calcified and partially fatty density gallstones. No significant wall thickening or surrounding fatty inflammatory changes. No duct dilation. Steatosis of the pancreas but no focal lesions. Kidneys and Ureters: Bilateral mild hydronephrosis. No radiodense stones bilaterally. Minimal perinephric stranding versus edema bilaterally. Prominent left extrarenal pelvis. Mesentery: Bilateral perinephric stranding versus edema. Minimal free fluid lower abdomen. Bilateral thickening of the paracolic fascia. Aorta: Mild to moderate atherosclerotic calcification but no aneurysm of the outer wall. Small Bowel: Normal caliber. Minimal stranding around the inferior segments in the pelvis, but no definite obstruction.. Terminal Ileum/Cecum: Unremarkable. Appendix not thickened. Minimal straining below the appendix. Colon: Moderate redundancy of the sigmoid colon with rectum distended by fecal material. Pelvic Organs: Minimal fluid in the anterior peritoneal reflection. Urinary bladder contains a catheter with the balloon inflated. Thickened bladder wall with perivesical fatty density and fluid. Enlarged prostate gland measuring 5.8 x 4.4 cm in the transverse plane. Impressing on the urinary bladder base and seminal vesicles. Spine and Bony Pelvis: Minimal spondylosis in the lumbar spine. Thoracolumbar dextroscoliosis. Abdominal Wall/Back Soft Tissues: Bilateral inguinal hernias containing fat only, no bowel. IMPRESSION: 1. Fluid in the anterior peritoneal reflection of the male pelvis with fluid around it increased fatty stranding around the urinary bladder which contains a catheter, and around loops of sigmoid colon and small bowel in the upper pelvis. Evaluate for prostatitis or cystitis. No free air. No ascites. 2. Bilateral mild hydronephrosis with minimal perirenal fatty stranding. No stones in the bilateral kidneys or ureters. 3. Cholelithiasis of the gallbladder with enlargement but no significant wall thickening or pericholecystic fluid or fatty stranding. Slightly more distended than on the prior study. Calcification in the wall. Indicate a porcelain gallbladder. 4. Moderately redundant sigmoid colon with constipation versus fecal impaction in the rectum. Electronically signed by: Hi Paniagua MD 08/27/2018 12:10 PM [facility]
[2018-08-27] MEDS ORDERED: MEROPENEM 1 GM in SODIUM CHL 0.9% 50ML MIN-BAG+ 50 ML IVPB ONE (12:22)
[2018-08-27] MEDS ORDERED: MEROPENEM 1 GM VIAL IVPB ONE ×2 (12:25→19:36)
[2018-08-27] MEDS ORDERED: SODIUM CHL 0.9% 50ML MIN-BAG+ 50 ML IVPB ONE ×2 (12:25→19:35)
[2018-08-27] MEDS ORDERED: SODIUM CHLORIDE 0.9% 1000ML 1,000 ML IVS PRN (13:16)
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
[2018-08-27] MEDS ORDERED: SODIUM CHLORIDE 0.9% (FLUSH) 10 ML SYG IV PRN (14:35)
[2018-08-27] MEDS ORDERED: LACTATED RINGERS 1,000 ML IVS ONE (14:38)
[2018-08-27] MEDS ORDERED: ACETAMINOPHEN W/COD #3 TAB 1 EA TAB PO PRN (14:45)
[2018-08-27] MEDS ORDERED: ALBUTEROL INHALER 64 PUFF/8GM INH PRN (14:45)
[2018-08-27] MEDS: IV SET AND CAP CHANGE INJ INJ SCH (15:16)
[2018-08-27] MEDS: ENOXAPARIN SODIUM 30 MG/0.3 ML SYG SUBCU SCH (15:21)
[2018-08-27] MEDS: PANTOPRAZOLE SODIUM IV 40 MG VIAL IV SCH (15:21)
[2018-08-27] MEDS: GABAPENTIN 100 MG CAP PO SCH ×2 (15:22→20:54)
[2018-08-27] MEDS: KCL 20 MEQ/NS 1,000 ML IVS PRN (16:02)
[2018-08-27] MEDS: MEROPENEM 1 GM in SODIUM CHL 0.9% 50ML MIN-BAG+ 50 ML IVPB SCH (23:55)
[2018-08-28] MEDS: KCL 20 MEQ/NS 1,000 ML IVS PRN ×3 (01:45→21:16)
[2018-08-28] MEDS: PANTOPRAZOLE SODIUM IV 40 MG VIAL IV SCH (06:02)
[2018-08-28] MEDS: DOCUSATE SODIUM 100 MG CAP PO SCH (08:53)
[2018-08-28] MEDS: GABAPENTIN 100 MG CAP PO SCH ×3 (08:54→21:14)
[2018-08-28] MEDS: ASPIRIN (CHEWABLE) 81 MG TAB PO SCH (08:54)
[2018-08-28] MEDS: POLYETHYLENE GLYCOL 3350 17 GM PCKT PO SCH (08:54)
--- NOTE | 2018-08-28 09:50 | PN ---
SUPERVISING PHYSICIAN: Junior Hoffman MD DATE: 08/28/18 SUBJECTIVE: The patient feels about the same that he did yesterday. He has no complaints of shortness of breath or pain at this time. OBJECTIVE: VITAL SIGNS: Blood pressure 96/54. Heart rate 83. Respiratory rate 18. Temperature 98.0. Oxygen saturation 95%. GENERAL: Mr. Lema is a 78-year-old male patient in no active distress at this time. NEUROLOGIC: Alert and oriented. LUNGS: Clear to auscultation bilaterally. CARDIOVASCULAR: Regular rate and rhythm. Normal S1, S2. ABDOMEN: Soft. Positive bowel sounds. GENITOURINARY: Deferred. EXTREMITIES: Lower extremities with pulses 2+. Capillary refill is less than 2 seconds. LABORATORY: White count 13.9, hemoglobin 12.7, hematocrit 37.1, platelet count 245. Left shift at 81.8. There is no bandemia this morning. Chemistry shows sodium 126, potassium 3.3, chloride 98, CO2 21, BUN 36, creatinine 1.55, glucose 155, calcium 7.8. AST and ALT have improved. Bilirubin normal at 1.0. ASSESSMENT: 1. Severe sepsis secondary to pyelonephritis and possible prostatitis. 2. Acute kidney injury secondary to volume depletion as well as likely post obstructive nephropathy. 3. Electrolyte imbalance. 4. Transaminitis. 5. History of peripheral vascular disease with multiple toe amputations. 6. Right plantar foot ulceration. PLAN: At this point, he seems to be improving. White count is greatly improved as well as his creatinine. We will continue current antibiotics and await cultures as well as we will continue the current IV fluids. We will continue DVT and GI ulcer prophylaxis as well. We will repeat labs in the morning to ensure we are still going in the right direction. #[id number] MTDD
[2018-08-28] MEDS ORDERED: SODIUM CHL 0.9% 50ML MIN-BAG+ 50 ML IVPB ONE ×2 (11:00→20:23)
[2018-08-28] MEDS ORDERED: MEROPENEM 1 GM VIAL IVPB ONE ×2 (11:00→20:25)
[2018-08-28] MEDS: MEROPENEM 1 GM in SODIUM CHL 0.9% 50ML MIN-BAG+ 50 ML IVPB SCH (12:09)
[2018-08-28] MEDS: ENOXAPARIN SODIUM 30 MG/0.3 ML SYG SUBCU SCH (15:56)
[2018-08-29] MEDS: MEROPENEM 1 GM in SODIUM CHL 0.9% 50ML MIN-BAG+ 50 ML IVPB SCH ×2 (00:24→12:27)
[2018-08-29] MEDS: PANTOPRAZOLE SODIUM IV 40 MG VIAL IV SCH (06:13)
[2018-08-29] MEDS: KCL 20 MEQ/NS 1,000 ML IVS PRN ×2 (07:53→17:35)
[2018-08-29] MEDS: ASPIRIN (CHEWABLE) 81 MG TAB PO SCH (09:41)
[2018-08-29] MEDS: GABAPENTIN 100 MG CAP PO SCH ×3 (09:41→20:36)
[2018-08-29] MEDS: DOCUSATE SODIUM 100 MG CAP PO SCH (09:44)
[2018-08-29] MEDS: POLYETHYLENE GLYCOL 3350 17 GM PCKT PO SCH (09:45)
[2018-08-29] MEDS ORDERED: MEROPENEM 1 GM VIAL IVPB ONE (12:25)
[2018-08-29] MEDS ORDERED: SODIUM CHL 0.9% 50ML MIN-BAG+ 50 ML IVPB ONE (12:25)
[2018-08-29] MEDS ORDERED: MAGNESIUM HYDROXIDE 30 ML UD PO ONE (12:27)
[2018-08-29] MEDS: ENOXAPARIN SODIUM 30 MG/0.3 ML SYG SUBCU SCH (16:19)
[2018-08-29] MEDS ORDERED: levoFLOXacin 500MG IV 500 MG in PREMIX BAG 1 BAG IVPB ONE (17:34)
[2018-08-29] MEDS ORDERED: levoFLOXacin 500MG IV 100 ML IVPB ONE (17:46)
--- NOTE | 2018-08-29 18:04 | PN ---
DATE: 08/29/18 SUPERVISING PHYSICIAN: Junior Hoffman M.D. SUBJECTIVE: The patient feels maybe a little bit better today, he says. He has been having some issues with eating and taking his oral medications. I discussed changing his meals to pureed so that he could have better intake. He has been afebrile now for 24 hours. OBJECTIVE: VITAL SIGNS: Temperature 98, pulse 94, blood pressure 135/69, respirations 18, satting 94% on room air. I's and O's show a positive balance of 200 with 2450 in, 2250 out. Weight is 64.4 kg. GENERAL: The patient appears tired and frail but he is alert in no acute distress. CHEST: Lungs are clear to auscultation bilaterally. HEART: Regular rate and rhythm. ABDOMEN: Soft. Positive bowel sounds. No tenderness. EXTREMITIES: No clubbing, cyanosis or edema. Pulses are 2+ bilaterally. NEUROLOGIC: He is alert and oriented times three. LABORATORY: White count now is normalized to 10,800, hemoglobin 13.4, hematocrit 39.7. RBC indices indicate a microcytic/hypochromic presentation. Platelet count is 271,000. Differential continues to show a left shift but no bands. Chemistries: Sodium is up to 132, potassium 3.9, BUN 19, creatinine now has normalized to 1.13. Calcium 8.1. Liver functions now showing to be within normal limits. MICROBIOLOGY: Urine culture showed Serratia marcescens species which was sensitive to both Cipro and Levofloxacin. ASSESSMENT: 1. Severe sepsis secondary to pyelonephritis and possible prostatitis with final urine culture results showing a Serratia marcescens sensitive to fluoroquinolones. 2. Acute kidney injury secondary to volume depletion and dehydration with a post obstructive nephropathy, improved after Perez placement. 3. Electrolyte imbalance to include hyponatremia, persistent but improving with fluids. 4. Elevated liver enzymes with transaminitis, now resolved after fluids probably secondary to dehydration. 5. History of peripheral vascular disease with multiple toe amputations. 6. Right plantar foot ulceration. PLAN: Given the patient's cultures results, will change his antibiotics from Meropenem to Levaquin parenterally with anticipation of once he discharges he will go home on p.o. Ciprofloxacin. I have changed his diet to a pureed diet so that he will hopefully have a better intake. Will continue with DVT and GI prophylaxis as per protocol. Will plan to repeat labs in the morning and continue to monitor until he can transition to outpatient management. #[id number] MTDD
[2018-08-29] MEDS ORDERED: ACETAMINOPHEN 325 MG TAB PO PRN (21:58)
[2018-08-30] MEDS: KCL 20 MEQ/NS 1,000 ML IVS PRN ×3 (03:42→23:11)
[2018-08-30] MEDS: PANTOPRAZOLE SODIUM IV 40 MG VIAL IV SCH (06:07)
[2018-08-30] MEDS ORDERED: levoFLOXacin 250MG IV 50 ML IVPB ONE (07:19)
[2018-08-30] MEDS: POLYETHYLENE GLYCOL 3350 17 GM PCKT PO SCH (08:34)
[2018-08-30] MEDS: DOCUSATE SODIUM 100 MG CAP PO SCH (08:34)
[2018-08-30] MEDS: ASPIRIN (CHEWABLE) 81 MG TAB PO SCH (08:35)
[2018-08-30] MEDS: levoFLOXacin 250MG IV 250 MG in PREMIX BAG 1 BAG IVPB SCH (08:35)
[2018-08-30] MEDS: GABAPENTIN 100 MG CAP PO SCH ×3 (08:41→20:38)
--- NOTE | 2018-08-30 11:49 | PN ---
DATE: 08/30/18 SUPERVISING PHYSICIAN: Junior Hoffman M.D. SUBJECTIVE: The patient ran a fever last night of 101 but responded to Tylenol. We did change his antibiotics based off his culture results and sensitivities yesterday. He has continued to show stable vital signs other than a temperature. He has had some complaints of chest discomfort with cough and deep breathing but is maintaining good O2 saturations. He worked with Physical Therapy yesterday but very minimally in bed and later just to the chair. He still remains very weak and frail. Recommendation per Physical Therapy is continued PT. OBJECTIVE: VITAL SIGNS: T max temperature 101, pulse 87, blood pressure 136/74 , respirations 18, satting 92% on room air. I's and O's show a negative balance of 450 with 3550 in, 4000 out. He has not yet had a bowel movement. Weight is 65.6 kg. CHEST: Lung sounds are clear to auscultation, slightly diminished towards the bases but no rhonchi, wheezing or rales. HEART: Regular rate and rhythm. ABDOMEN: Soft, non-tender. Positive bowel sounds. GENITOURINARY: Perez catheter remains in place with no signs of infection with clear yellow urine to drainage bag. EXTREMITIES: Without any clubbing, cyanosis or edema. NEUROLOGIC: He is alert and oriented times three. LABORATORY: CBC yesterday was showing normal white count. Today his electrolytes are showing improving sodium at 133, potassium 4.3, BUN 14, creatinine 0.99, calcium 7.6. MICROBIOLOGY: Final culture results of urine showed Serratia marcescens which is sensitive to fluoroquinolones. Blood cultures remain negative at 48 hours. ASSESSMENT: 1. Severe sepsis secondary to pyelonephritis and possible prostatitis with culture results indicating a Serratia marcescens that was sensitive to fluoroquinolones with the patient being transitioned from Meropenem to Levaquin but continuing to show a temperature. 2. Acute kidney injury due to volume depletion and dehydration with a post obstructive nephropathy, now back to baseline status after fluid and Perez placement needing close followup in the outpatient setting with urology. 3. Electrolyte imbalance to include persistent hyponatremia, but maintaining stable with slight improvement with fluids. 4. Elevated liver enzymes with an elevated AST and ALT now back to baseline status felt to be secondary to dehydration. 5. History of peripheral vascular disease with multiple toe amputations. 6. Right plantar foot ulceration. PLAN: Will continue antibiotic at this point and transition from Meropenem to Levaquin with anticipation of discharging on ciprofloxacin. I was hoping to be able to discharge the patient in the next 24 to 48 hours. It will be depending on how well he does with his physical therapy and can transition to outpatient management as well as he needs to be at least without a fever for 24 hours prior to discharge. Will continue to work with Physical Therapy and discharge planning with anticipation of discharging home with physical therapy versus Swing Bed. Until then will continue to monitor and treat as needed. #[id number] MTDD
[2018-08-30] MEDS: ENOXAPARIN SODIUM 30 MG/0.3 ML SYG SUBCU SCH (15:35)
[2018-08-30] MEDS: IV SET AND CAP CHANGE INJ INJ SCH (15:35)
[2018-08-31] MEDS: PANTOPRAZOLE SODIUM IV 40 MG VIAL IV SCH (06:13)
[2018-08-31] MEDS ORDERED: levoFLOXacin 250MG IV 50 ML IVPB ONE (08:35)
[2018-08-31] MEDS: DOCUSATE SODIUM 100 MG CAP PO SCH (08:56)
[2018-08-31] MEDS: GABAPENTIN 100 MG CAP PO SCH (08:56)
[2018-08-31] MEDS: levoFLOXacin 250MG IV 250 MG in PREMIX BAG 1 BAG IVPB SCH (08:56)
[2018-08-31] MEDS: ASPIRIN (CHEWABLE) 81 MG TAB PO SCH (08:56)
[2018-08-31] MEDS: POLYETHYLENE GLYCOL 3350 17 GM PCKT PO SCH (08:56)
[2018-08-31] MEDS: KCL 20 MEQ/NS 1,000 ML IVS PRN (09:39)
[2018-08-31 12:09] VITALS: BP 160/88; TEMP 97.9; O2SAT 97
--- NOTE | 2018-08-31 16:14 | DS ---
SUPERVISING PHYSICIAN: Junior Hoffman M.D. ADMISSION DIAGNOSIS: 1. Severe sepsis secondary to pyelonephritis and possible prostatitis. 2. Acute pyelonephritis with concerns for prostatitis. 3. Acute kidney injury possibly secondary to #2 and with concerns for possible post obstructive nephropathy with urinary retention. 4. Electrolyte imbalance including hyponatremia as well as hypokalemia. 5. Elevated Liver enzymes. 6. History of peripheral vascular disease and multiple toe amputations. 7. History of right plantar foot ulceration. DISCHARGE DIAGNOSIS: 1. Sepsis secondary to pyelonephritis and prostatitis with culture results final showing Serratia marcescens being sensitive to fluoroquinolones with the patient being on Levaquin and transitioned to p.o. ciprofloxacin at discharge. 2. Acute kidney injury due to volume depletion and dehydration with a post obstructive nephropathy, now back to baseline status after fluid and on continued Perez placement requiring followup in the outpatient setting with urology. 3. Electrolyte imbalance to include persistent hyponatremia showing to be stable. 4. Elevated liver enzymes with an elevated AST and ALT now back to baseline status prior to discharge felt to be secondary to dehydration. 5. History of peripheral vascular disease with multiple toe amputations. 6. Right plantar foot ulceration. REASON FOR HOSPITALIZATION: This is a 78-year-old male patient who came in the Emergency Room with inability to urinate for the last week or so. He is not complaining of any fever or chills, but he has had some general malaise and decrease in appetite. He said he has never had any problem urinating before, but it came about over the last week or so. In the Emergency Room, his workup was completed by Dr. Copeland. This included lab as well as radiographs. He had a CT scan of the abdomen and pelvis which showed some stranding around the urinary bladder which was concerning for prostatitis versus cystitis. He had also mild bilateral hydronephrosis with some stranding concerning for pyelonephritis. He has some cholelithiasis, but no evidence of cholecystitis. Chest x-ray was done and did not show any acute findings compared to the chest x -ray done in 2011. Labs showed elevated white count of 24.6 as well as 15% bands. Coag studies were normal. Lactate was 2.4, sodium 123, potassium 3.3, chloride 92, BUN 55, creatinine 2.51, glucose 150. Calcium 8.7. Mild elevation in transaminases with AST 82, ALT 66. Albumin 2.9. Urinalysis was done which showed moderate leukocyte esterase 5 to 10 RBCs, greater than 50 WBCs , 4+ bacteria on micro. In the Emergency Room, he was given Merrem and cultures were drawn as well. At time of examination, the patient is alert and oriented. He is very cachectic in appearance, but in no active distress. LABORATORY STUDIES: Initial white count on admission was 24,600 with 15% bands. Hemoglobin 14.6, hematocrit 42.4, platelet count 269,000. After initiation of treatment with antibiotics white count normalized to 10,800. Hemoglobin and hematocrit were stable at 13.4 and 39.7 with platelet count 271, 000. Differential did show a resolving left shift prior to discharge. Coagulation studies showed normal PT and PTT. Chemistries on admission showed sodium 123, potassium 3.3, BUN 65, creatinine 2.51 with calcium 8.7. Initial lactic acid 2.4 which normalized after fluids to 1.1. Liver enzymes showed elevation of total bilirubin initially at 1.2, after fluids normalized to 0.8 prior to discharge. AST was elevated at 82 and normalized to 40. ALT was 66 initially and normalized to 39. Alkaline phosphatase was 42 at discharge. Urinalysis on admission showed a moderate amount of blood, moderate leukocyte esterase, 5 to 10 RBCs, greater than 50 WBCs, 0 to 1 epithelials, 4+ bacteria. MICROBIOLOGY: Final urine culture results show a Serratia marcescens which is sensitive to fluoroquinolones. Blood cultures remain negative after 4 days. RADIOLOGY: Chest x-ray initially on admission per radiology interpretation showed stable bibasilar densities in the lungs, senescent changes since 2010. No acute infiltrates. HOSPITAL COURSE: Mr. Lema was admitted on 08/27/18 and initiated on antibiotic treatment for acute pyelonephritis and prostatitis with sepsis. Initial antibiotic coverage included Meropenem. He showed good improvement and normalization of his white count. He was afebrile on admission but did spike a temperature during hospitalization to a maximum of 101.0. He remained afebrile for 48 hours prior to discharge and admission to [facility]. Hemodynamically he was stable. Initial vital signs showed blood pressure 112/75 with heart rate 83. After cultures came back and showed sensitive to fluoroquinolones, he was transitioned to Levaquin and continued to show improvement. He was physically deconditioned but was able to work with physical therapy, but was not able to improve well enough to continue as an outpatient or go home safely, therefore it was felt that the patient would benefit from Swing Bed admission for continued rehabilitation efforts. He was continued with a Perez catheter and needing a urology consultation in the next week if possible. He had no other complications and was able to discharge to Swing Bed program. PLAN: The patient was discharged from Acute Care on 08/31/18 and admitted to Swing Bed program on 08/31/18 for continuation of antibiotic therapy p.o. with ciprofloxacin for pyelonephritis and prostatitis, and continue with physical therapy efforts to ensure the patient is safe with physical strength once discharged home. #[id number] [facility]
== END 2018-08-31 12:44 | disposition swing bed (61) | DRG 872 ==
LOC: ER 09:38 → MS 13:55
PROVIDERS: ADMIT Nurse Practitioner; ATTEND Nurse Practitioner Family
DX: A41.53 Sepsis due to Serratia (principal); N10 Acute pyelonephritis; N17.9 Acute kidney failure, unspecified; N13.8 Other obstructive and reflux uropathy; E87.1 Hypo-osmolality and hyponatremia; R64 Cachexia; Z68.1 Body mass index [BMI] 19.9 or less, adult; R65.20 Severe sepsis without septic shock; N41.9 Inflammatory disease of prostate, unspecified; E86.0 Dehydration; E86.9 Volume depletion, unspecified; I73.9 Peripheral vascular disease, unspecified; Z89.429 Acquired absence of other toe(s), unspecified side; Z91.041 Radiographic dye allergy status; L97.519 Non-pressure chronic ulcer of other part of right foot with unspecified severity

== ENCOUNTER 2018-08-31 12:48 | Inpatient (IN) | payer MEDICARE ==
--- NOTE | 2018-08-31 12:49 | HP ---
SUPERVISING PHYSICIAN: Junior Hoffman M.D. CHIEF COMPLAINT: Generalized weakness. HISTORY OF PRESENT ILLNESS: Mr. Nadya Lema is a 78 year-old male patient that was initially admitted to Acute Care on 08/27/18 with sepsis secondary to pyelonephritis and prostatitis that was found to be secondary to what sounded to be from a urine source of Serratia marcescens. He initially was treated with Meropenem and had a severe leukocytosis which resolved. He also had a post obstructive nephropathy which resolved with placement of Perez catheter. He responded well to treatment and was able to transition to [facility] prior to discharge. He was, however, showing to be severely deconditioned and working with physical therapy it was felt that the best interest of the patient for his safety was to transition to Swing Bed therapy for ongoing physical therapy efforts. He is admitted now to Swing Bed. He was admitted in stable condition. PAST MEDICAL HISTORY: 1. Multiple episodes of cellulitis of the lower extremities. 2. Peripheral vascular disease. 3. Esophageal strictures with dilation in the past. 4. History of alcohol abuse. 5. Neuropathies. PAST SURGICAL HISTORY: 1. Multiple toe amputations. 2. Appendectomy. 3. Right hip repair. 4. Right knee repair. 5. Esophageal dilation. CURRENT MEDICATIONS: 1. Tylenol #3 one every 12 hours as needed for pain. 2. Seasonal allergy eye drops daily. 3. Gabapentin 100 mg q.i.d. 4. Ciprofloxacin 500 mg b.i.d. for 21 days. 5. Aspirin 81 mg daily. 6. Albuterol 2 puffs inhaled every 6 hours as needed. ALLERGIES: IODINE, POVIDONE IODINE. FAMILY HISTORY: Coronary artery disease and diabetes. SOCIAL HISTORY: The patient has a distant history of smoking and according to records he drank heavily. He does not admit to drinking at this time. He does live with his son. REVIEW OF SYSTEMS: On date of admission to Swing Bed, he denied any fever or chills. He was showing a fairly steady weight but was continually positive for malaise and generalized weakness. HEENT: Denied any headaches, vision changes, ear pain, nasal congestion or sore throat. RESPIRATORY: No cough, hemoptysis or pleuritic chest pain. CARDIOVASCULAR: No chest pains, palpitations or peripheral edema. GASTROINTESTINAL: No nausea or vomiting, diarrhea, constipation or abdominal pain. GENITOURINARY: No dysuria or flank pain but does have a Perez in place due to acute urinary retention. HEMATOLOGIC: Denies any easy bruising. No transfusion reaction. ENDOCRINE: No polydipsia, polyuria or polyphagia. No heat or cold intolerance. NEUROLOGIC: Denied any syncopal episodes, paresthesias or seizures. PHYSICAL EXAMINATION: VITAL SIGNS: On admission to Swing Bed, temperature 98.8, pulse 77, blood pressure 143/74, respirations 18, satting 97% on room air. Admission weight 64.5 kg. GENERAL: The patient does appear thin and frail but is in no acute distress. He is alert and pleasant. HEENT: Tympanic membranes are clear bilaterally. Oropharynx is pink and moist without any lesions. NECK: Supple, non-tender. Full range of motion. No jugular venous distention. No adenopathies. CHEST: Lungs are clear to auscultation without any rhonchi, wheezing or rales. CARDIOVASCULAR: Regular rate and rhythm without appreciable murmurs, gallops, or rubs. ABDOMEN: Soft, non-tender. Positive bowel sounds. EXTREMITIES: Without any clubbing, cyanosis or edema. Pulses are 2+ bilaterally. He has multiple toe amputations. On the right plantar aspect of the right foot there is a small ulceration. This does not appear to have any acute drainage and is not erythematous. LABORATORY: No laboratory obtained at time of admission. ASSESSMENT: 1. Sepsis secondary to pyelonephritis and prostatitis with culture results final showing Serratia marcescens being sensitive to fluoroquinolones with the patient being on Levaquin and transitioned to p.o. ciprofloxacin at discharge. 2. Acute kidney injury due to volume depletion and dehydration with a post obstructive nephropathy, now back to baseline status after fluid and on continued Perez placement requiring followup in the outpatient setting with urology. 3. Electrolyte imbalance to include persistent hyponatremia showing to be stable. 4. Elevated liver enzymes with an elevated AST and ALT now back to baseline status prior to discharge felt to be secondary to dehydration. 5. History of peripheral vascular disease with multiple toe amputations. 6. Right plantar foot ulceration. 7. Disuse myopathy requiring Swing Bed admission. PLAN: The patient is going to be admitted to Swing Bed program for reconditioning. Will start him on pureed diet. He will be on DVT prophylaxis per protocol. He will have physical therapy evaluation. Will anticipate his length of stay to be at least 3 to 7 days depending on how well he progresses with physical therapy. Will resume his home medication including for the continued prostatitis with Ciprofloxacin 500 mg p.o. b.i.d. for a total of 21 days of treatment. He does have a Perez catheter remaining in place from Acute Care which will need to stay there until he can have a consultation with urology for the urinary retention plus renal nephropathy. Will continue to follow the patient as he progresses with his physical therapy efforts. Until he meets his goal will continue to follow and treat as needed. #[id number] MTDD
[2018-08-31] MEDS ORDERED: SODIUM PHOS/BIPHOS ENEMA ADULT 133 ML BTTL PR PRN (14:19)
[2018-08-31] MEDS ORDERED: ALBUTEROL SULFATE 2.5 MG/3 ML VIAL NEB PRN (14:19)
[2018-08-31] MEDS ORDERED: ACETAMINOPHEN 500 MG TAB PO PRN (14:19)
[2018-08-31] MEDS ORDERED: MAGNESIUM HYDROXIDE 30 ML UD PO PRN (14:19)
[2018-08-31] MEDS ORDERED: ACETAMINOPHEN W/COD #3 TAB (ER Disp) PO PRN (14:22)
[2018-08-31] MEDS: GABAPENTIN 100 MG CAP PO SCH ×2 (15:42→20:24)
[2018-08-31] MEDS ORDERED: ACETAMINOPHEN W/COD #3 TAB 1 EA TAB PO PRN (16:06)
[2018-08-31] MEDS: LEVALBUTEROL NEBS 1.25 MG/3 ML VIAL INH SCH (16:10)
[2018-08-31] MEDS: ENOXAPARIN SODIUM 40 MG/0.4 ML SYG SUBCU SCH (20:24)
[2018-08-31] MEDS: CIPROFLOXACIN 500 MG TAB PO SCH (20:24)
[2018-09-01] MEDS: LEVALBUTEROL NEBS 1.25 MG/3 ML VIAL INH SCH ×3 (01:48→15:58)
[2018-09-01] MEDS: CIPROFLOXACIN 500 MG TAB PO SCH ×2 (09:45→20:59)
[2018-09-01] MEDS: [UNRECOGNIZED DRUG - OTHER] OP SCH (09:45)
[2018-09-01] MEDS: GABAPENTIN 100 MG CAP PO SCH ×3 (09:45→20:59)
[2018-09-01] MEDS: DOCUSATE SODIUM 100 MG CAP PO SCH (09:45)
[2018-09-01] MEDS: ASPIRIN (CHEWABLE) 81 MG TAB PO SCH (09:45)
[2018-09-01] MEDS: ENOXAPARIN SODIUM 40 MG/0.4 ML SYG SUBCU SCH (21:00)
[2018-09-02] MEDS: LEVALBUTEROL NEBS 1.25 MG/3 ML VIAL INH SCH ×4 (01:14→23:40)
[2018-09-02] MEDS: GABAPENTIN 100 MG CAP PO SCH ×3 (08:57→20:42)
[2018-09-02] MEDS: DOCUSATE SODIUM 100 MG CAP PO SCH (08:57)
[2018-09-02] MEDS: ASPIRIN (CHEWABLE) 81 MG TAB PO SCH (08:57)
[2018-09-02] MEDS: CIPROFLOXACIN 500 MG TAB PO SCH ×2 (08:57→20:42)
[2018-09-02] MEDS: [UNRECOGNIZED DRUG - OTHER] OP SCH (09:07)
[2018-09-02] MEDS: ENOXAPARIN SODIUM 40 MG/0.4 ML SYG SUBCU SCH (20:42)
[2018-09-03] MEDS: LEVALBUTEROL NEBS 1.25 MG/3 ML VIAL INH SCH ×3 (08:26→23:42)
[2018-09-03] MEDS: DOCUSATE SODIUM 100 MG CAP PO SCH (08:39)
[2018-09-03] MEDS: CIPROFLOXACIN 500 MG TAB PO SCH ×2 (08:41→20:47)
[2018-09-03] MEDS: GABAPENTIN 100 MG CAP PO SCH ×3 (08:41→20:46)
[2018-09-03] MEDS: ASPIRIN (CHEWABLE) 81 MG TAB PO SCH (08:41)
[2018-09-03] MEDS: [UNRECOGNIZED DRUG - OTHER] OP SCH (08:41)
[2018-09-03] MEDS: ENOXAPARIN SODIUM 40 MG/0.4 ML SYG SUBCU SCH (20:53)
[2018-09-04] MEDS: LEVALBUTEROL NEBS 1.25 MG/3 ML VIAL INH SCH ×3 (09:06→23:21)
[2018-09-04] MEDS: GABAPENTIN 100 MG CAP PO SCH ×3 (09:16→20:35)
[2018-09-04] MEDS: DOCUSATE SODIUM 100 MG CAP PO SCH (09:17)
[2018-09-04] MEDS: CIPROFLOXACIN 500 MG TAB PO SCH ×2 (09:17→20:35)
[2018-09-04] MEDS: ASPIRIN (CHEWABLE) 81 MG TAB PO SCH (09:17)
[2018-09-04] MEDS: [UNRECOGNIZED DRUG - OTHER] OP SCH (09:20)
[2018-09-04] MEDS: ENOXAPARIN SODIUM 40 MG/0.4 ML SYG SUBCU SCH (20:36)
[2018-09-05] MEDS: LEVALBUTEROL NEBS 1.25 MG/3 ML VIAL INH SCH (08:25)
[2018-09-05] MEDS: DOCUSATE SODIUM 100 MG CAP PO SCH (08:51)
[2018-09-05] MEDS: GABAPENTIN 100 MG CAP PO SCH ×2 (08:51→15:05)
[2018-09-05] MEDS: CIPROFLOXACIN 500 MG TAB PO SCH (08:51)
[2018-09-05] MEDS: ASPIRIN (CHEWABLE) 81 MG TAB PO SCH (08:51)
[2018-09-05] MEDS: [UNRECOGNIZED DRUG - OTHER] OP SCH (09:06)
[2018-09-05 10:34] VITALS: BP 117/70; TEMP 98; O2SAT 93
--- NOTE | 2018-09-06 08:04 | DS ---
SUPERVISING PHYSICIAN: Dioni Law MD DISCHARGE DIAGNOSIS: 1. Sepsis secondary to pyelonephritis and prostatitis with culture results final showing Serratia marcescens being sensitive to fluoroquinolones with the patient being on Levaquin and transitioned to p.o. ciprofloxacin at discharge. 2. Acute kidney injury due to volume depletion and dehydration with a post obstructive nephropathy, now back to baseline status after fluid and on continued Perez placement requiring followup in the outpatient setting with urology. 3. Electrolyte imbalance to include persistent hyponatremia showing to be stable. 4. Elevated liver enzymes with an elevated AST and ALT now back to baseline status prior to discharge felt to be secondary to dehydration. 5. History of peripheral vascular disease with multiple toe amputations. 6. Right plantar foot ulceration. 7. Disuse myopathy requiring Swing Bed admission. HISTORY OF PRESENT ILLNESS: This is a 78-year-old male patient who was initially admitted to Acute Care on 08/27/18 with sepsis secondary to pyelonephritis and prostatitis that was secondary to a urinary source of Serratia marcescens. In the Emergency Room, he also had severe leukocytosis at 24,600. He was treated with meropenem. His leukocytosis resolved. He also had a post obstructive nephropathy which resolved with placement of Perez catheter. He was transitioned to Levaquin prior to discharge from the Acute Care setting. He was found to be severely deconditioned and physical therapy felt that it was in his best interests for the patient's safety to discharge from the Acute Care setting and transition to Swing Bed for ongoing physical therapy efforts for strengthening and conditioning. He is admitted now to Swing Bed. HOSPITAL COURSE: He has progressed well with his strengthening and conditioning with physical therapy. At this point, he can be discharged home with close followup with his primary care physician, Dr. Sadler. He will also have [facility]. DISCHARGE PLAN: The patient will be discharged home in stable condition. He will have [facility]. He will continue with his Perez catheter and has an appointment with a urologist, Dr. Rich, on 09/10/18 at 1:15 PM. He has been on a fluoroquinolone for his prostatitis and he will be discharged home on 16 additional days of ciprofloxacin b.i.d. He has an appointment with his primary care physician, Dr. Sadler, on 09/12/18 at 2:45 PM. We will also continue with his previous home medications. He is to return to the hospital or followup with Dr. Sadler for any problems or complications. DISCHARGE MEDICATIONS: 1. Albuterol. 2. Nitroglycerin. 3. Acetaminophen with codeine. 4. Aspirin. 5. Gabapentin. 6. Clear Eyes ophthalmic drops. 7. Ciprofloxacin. #[id number] [facility]
== END 2018-09-05 17:05 | disposition home health service (06) | DRG 872 ==
LOC: MS 12:48
PROVIDERS: ADMIT Nurse Practitioner Family; ATTEND Nurse Practitioner Family
PROC: F07Z9ZZ Gait Training/Functional Ambulation Treatment (ICD-10-PCS; principal; 2018-09-01)
DX: A41.53 Sepsis due to Serratia (principal); N10 Acute pyelonephritis; N17.9 Acute kidney failure, unspecified; E87.1 Hypo-osmolality and hyponatremia; N41.9 Inflammatory disease of prostate, unspecified; E86.0 Dehydration; I73.9 Peripheral vascular disease, unspecified; Z89.429 Acquired absence of other toe(s), unspecified side; G72.9 Myopathy, unspecified; L97.519 Non-pressure chronic ulcer of other part of right foot with unspecified severity; G62.9 Polyneuropathy, unspecified

== ENCOUNTER 2018-10-17 10:14 | Inpatient (IN) | payer MEDICARE ==
--- NOTE | 2018-10-17 10:44 | ED.PDOC ---
History of Present Illness - General Chief Complaint: Chest Pain/[place] Time Seen by Provider: 10/17/18 10:28 Source: patient Exam Limitations: no limitations Additional Information: C/O CP. MID CHEST, CANT QUALIFY, - History of Present Illness Timing/Duration: days - 3. CONSTANT Severity/Quality: moderate Location: substernal Chest Pain Radiation: no radiation Activities at Onset: none Prior Chest Pain/Cardiac Workup: no prior chest pain Improving Factors: nothing Worsening Factors: nothing Allergies/Adverse Reactions: Allergies Iodine Allergy (Verified 08/31/18 13:14) Povidone Iodine [From Betadine] Allergy (Verified 08/31/18 13:14) Home Medications: Ambulatory Orders Acetaminophen W/ Codeine [Tylenol W/ CODEINE #3] 1 ea PO Q12H PRN 08/27/18 Albuterol Sulfate [Proair Hfa] 2 puff INH Q6H PRN 08/27/18 Aspirin [Aspirin Childrens] 81 mg PO DAILY 08/27/18 Gabapentin 100 mg PO TID 08/27/18 Annrtgyfycu-Gqoxgjol-Fymw Sulf [Clear Eyes Seasonal Relie 0.012-0.2-0.25 %] 1 dona OP DAILY 08/27/18 Nitroglycerin [Nitrostat] 0.4 mg SL Q5MIN PRN 08/27/18 Ciprofloxacin [Cipro] 500 mg PO BID #32 tab 09/05/18 Review of Systems - Review of Systems Constitutional: Denies: chills, fever EENTM: States: no symptoms reported Respiratory: Denies: cough, short of breath Cardiology: States: chest pain. Denies: palpitations, syncope Gastrointestinal/Abdominal: Denies: nausea, vomiting Genitourinary: States: other - HAS HAD FORRESTER FOR PAST MONTH SECONDARY TO URINARY RETENTION. Skin: States: no symptoms reported, other - NO DIAPHORESIS Neurological: States: no symptoms reported Endocrine: States: no symptoms reported Hematologic/Lymphatic: States: no symptoms reported Past Medical History (General) - Patient Medical History Hx Seizures: No Hx Stroke: No Hx Dementia: No Hx Asthma: Yes Hx of COPD: No Hx Cardiac Disorders: Yes - PVD Hx Congestive Heart Failure: No Hx Pacemaker: No Hx Hypertension: Yes Hx Thyroid Disease: No Hx Diabetes: No Hx Gastroesophageal Reflux: No Hx Renal Disease: No Hx Cancer: No Hx of HIV: No Hx Hepatitis C: No Hx MRSA: No - Vaccination History Hx Influenza Vaccination: Yes Hx Pneumococcal Vaccination: Yes - Social History Hx Tobacco Use: Yes Hx Alcohol Use: Yes - drink 3 light beers/day Hx Substance Use: No Hx Substance Use Treatment: No Hx Depression: No Hx Physical Abuse: No Hx Emotional Abuse: No - Female History Patient : No Family Medical History - Family History Mother Family History: Unknown Living Status: Hx Family Diabetes: Yes - dad Hx Family Cancer: Yes - throat-mom Father Family History: Unknown Living Status: Physical Exam - Physical Exam General Appearance: Alert, No apparent distress Eyes, Ears, Nose, Throat Exam: PERRL/EOMI, normal ENT inspection Neck: non-tender, full range of motion, supple Respiratory: lungs clear, normal breath sounds Cardiovascular/Chest: regular rate, rhythm, no murmur Gastrointestinal/Abdominal: non tender, soft, no organomegaly Extremity: normal range of motion, non-tender, normal inspection Neurologic: alert, normal mood/affect Skin Exam: normal color, warm/dry Lymphatic: no adenopathy Progress - Progress Progress: 10/17/18 12:00 SLIDER HELPED CHEST DISCOMFORT BUT DID NOT HELP EPIGASTRIC PAIN 10/17/18 13:37 FEELS SOME BETTER, STILL WITH EPIGASTRIC PAIN, CHEST PAIN HAS RESOLVED. 10/17/18 14:11 D/W PAU MCKINLEY AGREES TO ADMIT FOR OBSERVATION AND CT IN AM. - EKG/XRAY/CT EKG: Sinus - RATE 96, AXIS NL, INTERVALS NL, , no ST T wave changes - NAIP, Unchanged from - 07/26/17 XRAY: chest - SMALL LLL PLEURAL EFFUSION Departure - Departure Clinical Impression: Abdominal pain Qualifiers: Abdominal location: epigastric Qualified Code(s): R10.13 - Epigastric pain Chest pain Qualifiers: Chest pain type: unspecified Qualified Code(s): R07.9 - Chest pain, unspecified Disposition: Discharge to Home or Self Care Departure Forms: ED Discharge - Pt. Copy, Patient Portal Self Enrollment Instructions: DI for Chest Pain Referrals: PRAMOD MANDEL MD [Primary Care Provider] - 1-2 Weeks Home Medications: Ambulatory Orders Acetaminophen W/ Codeine [Tylenol W/ CODEINE #3] 1 ea PO Q12H PRN 08/27/18 Albuterol Sulfate [Proair Hfa] 2 puff INH Q6H PRN 08/27/18 Aspirin [Aspirin Childrens] 81 mg PO DAILY 08/27/18 Gabapentin 100 mg PO TID 08/27/18 Xqzvvvpyaqh-Txndlldu-Dmlu Sulf [Clear Eyes Seasonal Relie 0.012-0.2-0.25 %] 1 dona OP DAILY 08/27/18 Nitroglycerin [Nitrostat] 0.4 mg SL Q5MIN PRN 08/27/18 Ciprofloxacin [Cipro] 500 mg PO BID #32 tab 09/05/18 Decision To Admit - Decistion To Admit Decision to Admit Reason: Admit from ER Decision to Admit Date: 10/17/18 Decision to Admit Time: 14:14
[2018-10-17] MEDS ORDERED: ALUM & MAG HYDROX-SIMETHICONE 30 ML, LIDOCAINE VISCOUS 2% 15 ML PO ONE ×2 (10:47)
[2018-10-17] MEDS ORDERED: ALUM & MAG HYDROX-SIMETHICONE 30 ML UD ONE (10:48)
[2018-10-17] MEDS ORDERED: LIDOCAINE HCL 2% (MOUTH-THROAT) 15 ML UD ONE (10:48)
--- NOTE | 2018-10-17 11:22 | RAD ---
EXAM DESCRIPTION: Chest,1 View CLINICAL HISTORY: CP COMPARISON: Chest x-ray dated August 27, 2018. FINDINGS: Frontal view the thorax was acquired. Since comparison, there is been development of blunting left costophrenic sulcus suggesting a left-sided effusion. Likely some adjacent atelectasis retrocardiac space. Contralateral right lung and cuspid sulcus is clear. Heart and mediastinum is within normal limits for patient's age. Age-indeterminate deformity of the left lateral sixth rib. Mild dextrocurvature of the thoracic spine. IMPRESSION: New small left-sided pleural effusion. Age-indeterminate left lateral sixth rib deformity. Correlate for left chest wall pain. Electronically signed by: Castro Rockwell MD 10/17/2018 11:21 AM [employer]
[2018-10-17] MEDS ORDERED: KETOROLAC TROMETHAMINE INJ 30 MG/ML VIAL IV ONE (12:01)
[2018-10-17] MEDS ORDERED: DICYCLOMINE HCL INJ 20 MG/2 ML AMP IM ONE (12:01)
--- NOTE | 2018-10-17 16:17 | HP ---
SUPERVISING PHYSICIAN: Dioni Law M.D. CHIEF COMPLAINT: Epigastric pain and chest pain. HISTORY OF PRESENT ILLNESS: This is a 78 year-old male patient who presented to the Emergency Room today due to 3 days of pain that started under his left arm, moved across to his chest and now has become epigastric. He had no diaphoresis with the pain. He also had some mild nausea. The pain was constant and was not related to exertion. There was no radiation. It just moved from under his arm to mid chest. His vital signs in the Emergency Room showed a temperature of 98 with heart rate of 83, blood pressure 173/92, respiratory rate 28, O2 sat 97%. Lab was done and it showed white count of 12,300 with hemoglobin 12.6, hematocrit 37.3. There was no shift on his differential. Sodium 132, potassium 3.2, chloride 99, BUN 10, creatinine 0.49, glucose 121, serum osmolality 264.8. Total bilirubin 3.9 with AST of 23. Cardiac enzymes were negative. He was given some Toradol as well as a GI slider. Chest x-ray showed new small left sided pleural effusion with an age indeterminate left lateral sixth rib deformity. The patient has no history of falls or trauma to that left side. There were no changes on his EKG. After giving the GI slider, the pain subsided some. A troponin was repeated and it was also less 0.02. We will place the patient in observation. PAST MEDICAL HISTORY: 1. Multiple episodes of cellulitis of the lower extremities. 2. Peripheral vascular disease. 3. Esophageal strictures with dilation per Dr. Ayala in the past. 4. History of alcohol abuse. 5. Lower extremity neuropathies. PAST SURGICAL HISTORY: 1. Multiple toe amputations. 2. Appendectomy. 3. Right hip repair. 4. Right knee repair. 5. Multiple esophageal dilations. CURRENT MEDICATIONS: Per the EMR and awaiting verification. ALLERGIES: IODINE. FAMILY HISTORY: Positive for coronary artery disease and diabetes. SOCIAL HISTORY: He lives in [place]. He has a distant history of cigarette smoking but he quit several years ago. He drank alcoholic beverages heavily many years ago but he does not drink at this time. REVIEW OF SYSTEMS: GENERAL: Negative for fever, fatigue or weight changes. HEENT: Negative for vision changes, ear pain, sinus symptoms or sore throat. RESPIRATORY: Negative for coughing, wheezing or shortness of breath. CARDIOVASCULAR: Per History of Present Illness. GASTROINTESTINAL: Positive for 1 episode of nausea without vomiting. Negative for diarrhea or constipation. Also see History of Present Illness. GENITOURINARY: Negative or dysuria, polyuria or hematuria, although he does have a Perez catheter in place and is to see Dr. Rich next week for possible removal. MUSCULOSKELETAL: Negative for myalgias or arthralgias. NEUROLOGIC: Negative for headaches, dizziness or seizures. PHYSICAL EXAMINATION: VITAL SIGNS: Temperature 98, heart rate 96, blood pressure 163/88, respiratory rate 20, O2 sat 94% on room air. GENERAL: This is a 78 year-old male patient lying in his hospital bed. He is in no acute distress. HEENT: Normocephalic and atraumatic. Pupils are equal and reactive. Oropharynx is clear. NECK: Supple without mass. RESPIRATORY: Essentially clear to auscultation bilaterally. CHEST: There is equal rise and fall of the chest with inspiration and expiration. CARDIOVASCULAR: Regular rate, slightly irregular rhythm. Sinus rhythm on the cardiac monitors with occasional PACs. ABDOMEN: Soft. It is mildly tender in the epigastric area, but otherwise non- tender. There is no guarding or rebound tenderness. Bowel sounds are positive. EXTREMITIES: He has multiple toe amputations with some mid redness on the top of his left foot. His bilateral pedal pulses are palpable at +1. NEUROLOGIC: He is awake, alert and oriented times three. LABORATORY: Labs and films are as per history of present illness. ASSESSMENT: 1. Gastritis, may be secondary to a hiatal hernia. 2. Chest pain with negative initial cardiac enzymes and no changes on his EKG. He was not started on aspirin due to gastritis and concerns for increased bleeding. He is on Lovenox for DVT prophylaxis. 3. Mild leukocytosis most likely secondary to #1. 4. Elevated bilirubin. 5. Electrolyte imbalance including hypokalemia, hyponatremia and hypochloridemia. 6. Peripheral vascular disease. 7. Lower extremity neuropathies. PLAN: We will place the patient in observation. He will have a bland diet tonight. He will be NPO at midnight. I will do an abdominal sonogram as well as an abdominal CT and abdominal x-ray for in the morning. I have also initiated the chest pain guidelines. Will repeat his cardiac labs as well as EKGs. I will repeat his routine lab in the morning. He may need to have a followup with Dr. Ayala in regards to his elevated bilirubin. He will get IV fluids overnight. I will restart his home medications as soon as they have been verified. I have given him Protonix for ulcer prophylaxis and Lovenox for DVT prophylaxis. He may also need to go home on a PPI if he continues to have abdominal pain. He most likely has GERD, although he denied it during his admission assessment. We will continue to monitor him closely and follow as needed. Dr. Law is the collaborating physician available for consultation. #[id number] [facility]
[2018-10-17] MEDS ORDERED: ALUM & MAG HYDROX-SIMETHICONE 30 ML UD PO PRN (17:34)
[2018-10-17] MEDS ORDERED: ONDANSETRON INJ 4 MG/2 ML VIAL IV PRN (17:34)
[2018-10-17] MEDS ORDERED: SODIUM CHLORIDE 0.9% (FLUSH) 10 ML SYG IV PRN (17:34)
[2018-10-17] MEDS ORDERED: IV SET AND CAP CHANGE INJ INJ SCH (18:00)
[2018-10-17] MEDS: SODIUM CHLORIDE 0.9% (FLUSH) 10 ML SYG IV SCH (20:30)
[2018-10-17] MEDS: GABAPENTIN 100 MG CAP PO SCH (20:30)
[2018-10-17] MEDS: ENOXAPARIN SODIUM 30 MG/0.3 ML SYG SUBCU SCH (20:30)
[2018-10-18] MEDS: MORPHINE SULFATE INJ 10 MG/ML VIAL IV PRN ×4 (06:31→18:21)
[2018-10-18] MEDS: FINASTERIDE 5 MG TAB PO SCH (09:31)
[2018-10-18] MEDS: GABAPENTIN 100 MG CAP PO SCH ×3 (09:31→20:49)
[2018-10-18] MEDS: SODIUM CHLORIDE 0.9% (FLUSH) 10 ML SYG IV SCH ×2 (09:33→20:50)
[2018-10-18] MEDS: LISINOPRIL 10 MG TAB PO SCH (09:43)
--- NOTE | 2018-10-18 10:35 | CT ---
EXAM DESCRIPTION: Abdomen/Pelvis w/Contrast: Computed Tomography. CLINICAL HISTORY: 78 years Male abd pain COMPARISON: Gallbladder ultrasound pending on the same visit. Prior CT scan of the abdomen and pelvis without contrast 08/27/2018. TECHNIQUE: Spiral-axial scans at 5 x 5 mm mm intervals through the abdomen and pelvis, after nonionic IV contrast and water-soluble oral contrast. Axial 2.5 mm reconstructions. Coronal and sagittal 2.0 mm reconstructions. Delayed scans, liver through the pelvis. Axial-spiral 5mm. No adverse reactions. Total Exam DLP: 891.38 mGy-cm. This exam was performed according to our departmental dose-optimization program which includes automated exposure control, adjustment of the mA and/or kV according to patient size and/or use of iterative reconstruction technique; to reduce radiation dose to as low as reasonably achievable (ALARA). FINDINGS: Lung bases and pleura: Small pleural effusion left base. Minimal compressive atelectasis left lower lobe. Scarring or atelectasis right lower lobe. Coronary artery calcifications. Liver, Stomach, Spleen, Adrenal Glands: Negative. Pancreas, Gallbladder, Ducts: Enlarged gallbladder with questionable wall thickening multiple radiodense stones and possible sludge and cholesterol stones also in the dependent gallbladder. Increased fatty stranding around the inferior gallbladder and abutting the adjacent colon. Duct not well seen. Fatty pancreas. Kidneys and Ureters: Small bilateral cortical cysts less than 1 cm diameter. No hydronephrosis. Ureters are negative. Mesentery: Stranding around the hepatic flexure the colon and fundus of the gallbladder. No free air or free fluid. Aorta: Moderate atherosclerosis with ectasia. Minimal calcification of the ostia of the major branch vessels. Small Bowel: Negative. Terminal Ileum/Cecum: Cecum distended by fecal matter. Normal caliber of the terminal ileum. Appendix not seen. Normal density of surrounding fat. Colon: Diffuse fecal material in the colon predominantly in the proximal half and the rectosigmoid. Moderate redundancy of the sigmoid colon. Pelvic Organs: Urinary bladder contains a catheter with balloon inflated. No significant amount of fluid in the cul-de-sac. Partially calcified prostate gland impressing on the base of the urinary bladder which is not distended. Spine and Bony Pelvis: Minimal disc space loss and bulging at multiple levels. Bilateral L5-S1 significant foraminal narrowing. Bilateral arthrosis hip joints more on the left. Prior ORIF for right femoral neck fracture, healing. Abdominal Wall/Back Soft Tissues: Fatty inguinal hernias bilaterally, not containing bowel. IMPRESSION: 1. Enlarged gallbladder with borderline wall thickening, multiple radiodense and cholesterol stones, and fatty stranding around the fundus indicating inflammatory process. Please refer to gallbladder ultrasound examination and report later today. 2. No free fluid or free air in the peritoneal cavity. 3. Small left pleural effusion with compressive atelectasis. 4. Moderate constipation in the colon but no bowel obstruction. 5. Disc space loss in the lumbar spine with foraminal narrowing, most significant at L5-S1 level bilaterally. CRITICAL COMMUNICATION: The critical value was discussed directly by phone with MERLYN Gudino, at approximately 1030 hours, on October 18, 2017. Electronically signed by: Hi Paniagua MD 10/18/2018 10:33 AM HEAD LIBRARIAN
--- NOTE | 2018-10-18 11:35 | US ---
EXAM DESCRIPTION: Gall Bladder: ULTRASOUND. CLINICAL HISTORY: abd pain COMPARISON: CT scan of the abdomen and pelvis on this visit. TECHNIQUE: Transabdominal scanning: Rodas-scale and Doppler modes. FINDINGS: Gallbladder: Multiple dependent echogenic stones and possible sludge, mobile with patient change in position. Largest diameter of stone is 2.3 cm. No fluid around the gallbladder. No wall thickening. 1.9 mm. Non-tender with transducer pressure. Common bile duct: caliber 4 mm within normal limits. Liver: With focal echogenicity subcapsular measuring 4.8 x 5.9 x 5.4 mm in the left lobe; otherwise normal echogenicity. Contour liver capsule smooth where seen. No fluid around the liver. Intrahepatic biliary ducts normal caliber. Doppler hepatopedal flow portal vein.. Long axis right lobe 14.8 Pancreas: Not well seen due to intestinal gas. Duct not seen. Abdominal aorta: Normal caliber from the proximal segment to the distal bifurcation. Right kidney: 9.6 cm long axis. Normal cortical thickness and echogenicity. No large calcifications, no hydronephrosis. IMPRESSION: Cholelithiasis of the gallbladder. No wall thickening or surrounding fluid. Nontender with transducer pressure. Not consistent with cholecystitis. Common bile duct nondilated. Questionable small hemangioma which was not seen on the CT scan. No further imaging recommended. Duct was not well seen. Right kidney and pancreas are unremarkable. Electronically signed by: Hi Paniagua MD 10/18/2018 11:34 AM ASSISTANT PROGRAM MANAGER
[2018-10-18] MEDS ORDERED: levoFLOXacin 500MG IV 100 ML IVPB ONE (11:40)
[2018-10-18] MEDS: levoFLOXacin 500MG IV 500 MG in PREMIX BAG 1 BAG IVPB SCH (11:41)
[2018-10-18] MEDS ORDERED: metroNIDAZOLE IV PREMIX 500MG 100 ML IVPB ONE ×2 (14:36→20:14)
[2018-10-18] MEDS: metroNIDAZOLE IV PREMIX 500MG 500 MG in PREMIX BAG 1 BAG IVPB SCH ×2 (14:38→22:17)
[2018-10-18] MEDS ORDERED: MAGNESIUM HYDROXIDE 30 ML UD PO ONE (17:41)
--- NOTE | 2018-10-18 20:00 | PN ---
DATE: 10/18/18 SUPERVISING PHYSICIAN: Dioni Law M.D. SUBJECTIVE: The patient is sitting up in his bed. He is eating his clear liquid meal. States he actually feels quite a bit better today than he did yesterday. His epigastric pain is mostly gone. He tolerated his clear liquids without any problems. He has had no nausea or vomiting, constipation or diarrhea. Denies chest pain or shortness of breath. His home health nurse spoke with the patient's nurse and felt that he would be unable to make his appointment with Dr. Rich on Monday to have his catheter removed and she was concerned that he needed another appointment as his family will not take him and he is unable to travel on [place]. OBJECTIVE: VITAL SIGNS: Temperature 98.2, heart rate 86, blood pressure 167/93, respiratory rate 18, O2 sat 93% on room air. RESPIRATORY: Essentially clear to auscultation bilaterally. CARDIAC: Regular rate and rhythm. GASTROINTESTINAL: Abdomen is soft. It is nondistended. It is very mildly tender in the epigastric to right upper quadrant. There is no rebound tenderness. No guarding. Bowel sounds are positive. EXTREMITIES: No cyanosis, clubbing or edema. NEUROLOGIC: He is awake, alert and oriented times three. LABORATORY: WBCs have improved to 11,000 with hemoglobin 13.3, hematocrit 40.4. He has a left shift on his differential. Sodium 133, potassium 3.9, chloride 98, BUN 12, creatinine 0.63, calcium 9.2. Total bilirubin 7.8, AST 69, alkaline phosphatase 124, amylase 94, lipase 76. Abdomen and pelvic CT shows: 1) Enlarged gallbladder with borderline wall thickening, multiple radiodense and cholesterol stones and fatty stranding around the fundus indicating inflammatory process. Refer to gallbladder ultrasound. 2) No free fluid or free air in the peritoneal cavity. 3) Small left pleural effusion with compressive atelectasis. 4) Moderate constipation in the colon but no bowel obstruction. 5) Disc space loss in the lumbar spine with foraminal narrowing most significantly in the L5-S1 level bilaterally. Gallbladder ultrasound shows cholelithiasis of the gallbladder. No wall thickening or surrounding fluid. Non-tender with transducer pressure not consistent with cholecystitis. Common bile duct nondilated. Questionable small hemangioma was not seen on the CT scan. No further imaging recommended. Duct was not well seen. Right kidney and pancreas are unremarkable. All other labs and films have been reviewed via the EMR. ASSESSMENT: 1. Cholelithiasis with inflammatory changes seen per CT, but sonogram shows no evidence of cholecystitis. 2. Gastritis, may be secondary to a hiatal hernia. 3. Chest pain with negative initial cardiac enzymes and no changes on his EKG. He was not started on aspirin due to gastritis and concerns for increased bleeding. He is on Lovenox for DVT prophylaxis. 4. Mild leukocytosis most likely secondary to #1. 5. Elevated bilirubin. 6. Electrolyte imbalance including hypokalemia, hyponatremia and hypochloridemia. 7. Peripheral vascular disease. 8. Lower extremity neuropathies. 9. Constipation. PLAN: We will change the patient to a full admission. His bland diet was discontinued and he was placed on a full liquid diet. Dr. Tapia recommended that he be advanced and then sent home on a low fat diet. He will receive Flagyl and Levaquin, and I will recheck his lab in the morning. Will also give him a dose of Milk of Magnesia today. Hopefully he can go home on antibiotics, complete the antibiotics and followup with Dr. Tapia for a possible cholecystectomy. Will continue to monitor him closely and follow as needed. Dr. Law is the collaborating physician available for consultation. #[id number] [facility]
[2018-10-18] MEDS: ENOXAPARIN SODIUM 30 MG/0.3 ML SYG SUBCU SCH (20:49)
[2018-10-19 00:39] VITALS: O2SAT 94
[2018-10-19] MEDS: MORPHINE SULFATE INJ 10 MG/ML VIAL IV PRN ×2 (05:06→08:05)
[2018-10-19] MEDS ORDERED: metroNIDAZOLE IV PREMIX 500MG 100 ML IVPB ONE (06:09)
[2018-10-19] MEDS: metroNIDAZOLE IV PREMIX 500MG 500 MG in PREMIX BAG 1 BAG IVPB SCH (06:19)
[2018-10-19] MEDS: FINASTERIDE 5 MG TAB PO SCH (08:07)
[2018-10-19] MEDS: SODIUM CHLORIDE 0.9% (FLUSH) 10 ML SYG IV SCH (08:07)
[2018-10-19] MEDS: GABAPENTIN 100 MG CAP PO SCH (08:07)
[2018-10-19] MEDS: LISINOPRIL 10 MG TAB PO SCH (08:07)
[2018-10-19] MEDS ORDERED: HYDROcodone 7.5MG/APAP 325MG 1 EA TAB PO PRN (09:06)
[2018-10-19] MEDS ORDERED: levoFLOXacin 500MG IV 100 ML IVPB ONE (11:05)
[2018-10-19] MEDS: levoFLOXacin 500MG IV 500 MG in PREMIX BAG 1 BAG IVPB SCH (11:07)
[2018-10-19] MEDS ORDERED: HYDROmorphone HCL INJ 2 MG/ML VIAL IV PRN (11:46)
[2018-10-19] MEDS ORDERED: SODIUM CHLORIDE 0.9% 1000ML 1,000 ML ONE (13:21)
[2018-10-19] MEDS ORDERED: SODIUM CHLORIDE 0.9% 1000ML 1,000 ML IVS ONE (13:25)
[2018-10-19] MEDS ORDERED: MAGNESIUM SULFATE PREMIX 2GM 2 GM in PREMIX BAG 1 BAG IVPB ONE (13:31)
[2018-10-19] MEDS ORDERED: PIPERACILLIN/TAZOBACTAM 3.375 GM in SODIUM CHLORIDE 0.9% 100ML 100 ML IVPB ONE (13:56)
[2018-10-19 14:06] VITALS: BP 100/59; TEMP 98.5
[2018-10-19] MEDS ORDERED: MAGNESIUM SULFATE PREMIX 2GM 50 ML IVPB ONE (14:09)
[2018-10-19] MEDS ORDERED: PIPERACILLIN/TAZOBACTAM 3.375 GM VIAL IVPB ONE (14:10)
[2018-10-19] MEDS ORDERED: SODIUM CHLORIDE 0.9% 100ML 100 ML IVPB ONE (14:10)
--- NOTE | 2018-10-19 19:35 | DS ---
SUPERVISING PHYSICIAN: Dioni Law M.D. DISCHARGE DIAGNOSIS: 1. Cholelithiasis with inflammatory changes seen per CT, but sonogram shows no evidence of cholecystitis. 2. Gastritis, may be secondary to a hiatal hernia. 3. Chest pain with negative initial cardiac enzymes and no changes on his EKG. He was not started on aspirin due to gastritis and concerns for increased bleeding. He is on Lovenox for DVT prophylaxis. 4. Mild leukocytosis most likely secondary to #1. 5. Elevated bilirubin. 6. Electrolyte imbalance including hypokalemia, hyponatremia and hypochloridemia. 7. Peripheral vascular disease. 8. Lower extremity neuropathies. 9. Constipation. HISTORY OF PRESENT ILLNESS: This is a 78 year-old male patient who presented to the Emergency Room due to 3 days of pain that started under his left arm. It moved across his chest and then become epigastric pain. There was no diaphoresis with the pain. He also had some mild nausea. The pain was constant and was not related to exertion. There was no radiation. It just moved from under his arm to mid chest. His vital signs in the Emergency Room showed a temperature of 98 with heart rate of 83, blood pressure 173/92, respiratory rate 28, O2 sat 97%. Lab was done and it showed white count of 12,300 with hemoglobin 12.6, hematocrit 37.3. There was no shift on his differential. Sodium 132, potassium 3.2, chloride 99, BUN 10, creatinine 0.49, glucose 121, serum osmolality 268.8. Total bilirubin 3.9 with AST of 23. His initial cardiac enzymes were negative. He was given some Toradol as well as a GI slider. Chest x-ray showed a small left sided pleural effusion with an age indeterminate left lateral sixth rib deformity. The patient has no history of falls or trauma to that left side. There were no changes on his EKG. After giving the GI slider, the pain subsided some. His repeat troponin in the E. R. was less 0.02. The patient was initially placed in the hospital in observation. HOSPITAL COURSE: He was initially given a bland diet and he was made NPO on his first midnight. An abdominal sonogram and CT was ordered for the next morning. His subsequent cardiac enzymes were negative. He received fluids overnight as well as Protonix for ulcer prophylaxis and Lovenox for DVT prophylaxis. Initially there were no antibiotics started as it was felt that he had gastritis secondary to a hiatal hernia. The next morning his labs showed a slight improvement to his white count which was 11,000. He did have a left shift on his differential. Hemoglobin and hematocrit were stable at 13.3 and 40.4. His total bilirubin went up to 7.9 and he had a lipase of 76 and amylase of 94. He had no complaints of abdominal pain and was tolerating a clear liquid diet without any issues. A CT of the abdomen and pelvis was done and it was found that: 1) Enlarged gallbladder with borderline wall thickening, multiple radiodense and cholesterol stones and fatty stranding around the fundus indicating inflammatory process. Please refer to gallbladder ultrasound examination and report later today. 2) No free fluid or free air in the peritoneal cavity. 3) Small left pleural effusion with compressive atelectasis. 4) Moderate constipation of the colon but no bowel obstruction. 5) Disc space loss in the lumbar spine with foraminal narrowing most significant at L5-S1. His gallbladder ultrasound shows cholelithiasis. No wall thickening or surrounding fluid. Non-tender with transducer pressure not consistent with cholecystitis. The common bile duct is nondilated. There is a questionable small hemangioma which is not seen on the CT scan. His case was discuss with Dr. Tapia, general surgeon. We placed the patient on Levaquin and Flagyl antibiotics. He had no tenderness to the abdomen. His vital signs remain stable although his heart rate did go up into the low 100s. The remainder of his vital signs remained stable. He was afebrile. This morning, he was very talkative and although his white blood cell count went up to 20,500, his total bilirubin dropped to 5.2. He did have a low magnesium of 1.7 and was given some magnesium supplementation. His sodium was slightly low at 129 and his chloride was low at 93. Later today there was a change in his level of consciousness. His heart rate went up to the 140s. It appeared to be sinus rhythm with PACs and he would open his eyes, follow commands but only answered simple yes/no questions. His vital signs remained stable. He was given some fluids and I called [facility] in [place]. I spoke with Dr. Beck, general surgeon. I updated him on the patient's status and he agreed to be consulted on transfer to [facility]. Dr. Ashley was the hospitalist at [facility]. I gave a report on the patient and she accepted the patient in transfer. DISCHARGE PLAN: The patient is to be discharged to [facility] via ambulance. He was sent with his medical records and radiology reports. He was in stable condition. His vital signs were stable. His list of medications were sent. Dr. Beck requested that a lactic acid be done. It was 1, and he also requested that Zosyn be given to the patient prior to his transfer. Zosyn was ordered then given and the patient was transferred via ambulance to [facility]. He is to followup with Dr. Sadler after discharge. DISCHARGE MEDICATIONS: 1. Nitroglycerin. 2. Acetaminophen with codeine. 3. Gabapentin. 4. Clear Eyes seasonal. 5. Finasteride. 6. Levaquin. 7. Metronidazole. 8. Zosyn. #[id number] [facility]
== END 2018-10-19 14:51 | disposition short-term general hospital (02) | DRG 445 ==
LOC: ER 10:14 → MS 15:30 → OBSVTOIN 15:30 → INTOOBSV 15:30
PROVIDERS: ADMIT Nurse Practitioner Acute Care; ATTEND Nurse Practitioner Acute Care
DX: K80.20 Calculus of gallbladder without cholecystitis without obstruction (principal); E87.1 Hypo-osmolality and hyponatremia; I73.9 Peripheral vascular disease, unspecified; G57.93 Unspecified mononeuropathy of bilateral lower limbs; K29.70 Gastritis, unspecified, without bleeding; E80.6 Other disorders of bilirubin metabolism; E87.6 Hypokalemia; K21.9 Gastro-esophageal reflux disease without esophagitis; E83.42 Hypomagnesemia; K59.00 Constipation, unspecified; K44.9 Diaphragmatic hernia without obstruction or gangrene; Z79.82 Long term (current) use of aspirin; Z87.891 Personal history of nicotine dependence; Z89.429 Acquired absence of other toe(s), unspecified side

== ENCOUNTER → 2018-10-29 | Outpatient (CLI) | payer MEDICARE ==
[~2018-10-29] MED LIST: IPRATROPIUM/ALBUTEROL 3 ML VIAL NEB ONE
== END ==
LOC: LAB.O 11:21
PROVIDERS: ATTEND Family Medicine
DX: J45.909 Unspecified asthma, uncomplicated (principal)
CPT/HCPCS: 94060; J7620

== ENCOUNTER 2018-11-23 09:11 | Inpatient (IN) | payer MEDICARE ==
--- NOTE | 2018-11-23 09:51 | ED.PDOC ---
History of Present Illness - General Chief Complaint: Respiratory Problem Stated Complaint: Cough, weakness Time Seen by Provider: 11/23/18 09:44 Source: patient Additional Information: 78 YEAR OLD HERE FOR EVLAUATION OF COUGH DRY NON PRODUCTIVE FOR DAYS HE DENIES CHRONIC LUNG DISEASE REMOTE HISTORY OF SMOKING HE HAS HAD NO FEVER CHILLS HE DESCRIBES COUGH DRY HACKING SPELLS ONCE IT STARTS HE CANT STOP HE HAS PERIPHERAL VASCULAR DISEASE SP AMPUTATION OF RIGHT GREAT TOE AND 5 TH TOE THE FOOT ON THE RIGHT SIDE IS COLD TO TOUCH GRAYISH DISCOLORATION NOTED HE HAS A PALPABLE DORSALIS PEDIS - History of Present Illness Timing/Duration: constant, week Cough Quality/Degree: severe Possible Cause: no prior episodes Improving Factors: nothing Worsening Factors: nothing Associated Symptoms: cough Respiratory Risk Factors: no cause identified Allergies/Adverse Reactions: Allergies Iodine Allergy (Verified 10/17/18 16:45) Povidone Iodine [From Betadine] Allergy (Verified 10/17/18 16:45) Home Medications: Ambulatory Orders Acetaminophen W/ Codeine [Tylenol W/ CODEINE #3] 1 ea PO Q12H PRN 08/27/18 Gabapentin 100 mg PO TID 08/27/18 Alofpmevjjd-Tiusrgjk-Xtbe Sulf [Clear Eyes Seasonal Relie 0.012-0.2-0.25 %] 1 dona OP QID 08/27/18 Finasteride 5 mg PO DAILY 10/17/18 Metoprolol Tartrate [Lopressor] 25 mg PO DAILY 11/23/18 Oseltamivir Suspension [Tamiflu Suspension] 75 mg PO BID 5 Days ml 11/23/18 Pantoprazole Sodium 40 mg PO DAILY 11/23/18 Review of Systems - Review of Systems Constitutional: States: no symptoms reported EENTM: States: no symptoms reported Respiratory: States: no symptoms reported, see HPI Cardiology: States: no symptoms reported Gastrointestinal/Abdominal: States: no symptoms reported Genitourinary: States: no symptoms reported Musculoskeletal: States: no symptoms reported Skin: States: no symptoms reported Neurological: States: no symptoms reported Endocrine: States: no symptoms reported Hematologic/Lymphatic: States: no symptoms reported Past Medical History (General) - Patient Medical History Hx Seizures: No Hx Stroke: No Hx Dementia: No Hx Asthma: Yes Hx of COPD: No Hx Cardiac Disorders: Yes - PVD Hx Congestive Heart Failure: No Hx Pacemaker: No Hx Hypertension: Yes Hx Thyroid Disease: No Hx Diabetes: No Hx Gastroesophageal Reflux: No Hx Renal Disease: No Hx Cancer: No Hx of HIV: No Hx Hepatitis C: No Hx MRSA: No Surgical History: cholecystectomy - Vaccination History Hx Influenza Vaccination: Yes - 2018 Hx Pneumococcal Vaccination: No - Social History Hx Tobacco Use: Yes - Quit 1959' Hx Alcohol Use: Yes - drink 3 light beers/day Hx Substance Use: No Hx Substance Use Treatment: No Hx Depression: No Hx Physical Abuse: No Hx Emotional Abuse: No - Female History Patient : No Family Medical History - Family History Mother Family History: Unknown Living Status: Hx Family Diabetes: Yes - dad Hx Family Cancer: Yes - throat-mom Father Family History: Unknown Living Status: Physical Exam - Physical Exam General Appearance: Alert, Comfortable Eye Exam: bilateral normal ENT Exam: normal ENT inspection, hearing grossly normal, TMs normal, pharynx normal Neck: non-tender, full range of motion Respiratory: chest non-tender, lungs clear, normal breath sounds, no respiratory distress Cardiovascular/Chest: regular rate, rhythm, no edema, no gallop, no JVD Gastrointestinal/Abdominal: normal bowel sounds, non tender, soft, no organomegaly Extremity: normal range of motion, non-tender Neurologic: cigarette seller II-XII nml as tested, no motor/sensory deficits, alert, normal mood/affect, oriented x 3 Skin Exam: normal color Departure - Departure Clinical Impression: Influenza A, PVD (peripheral vascular disease), Right upper lobe pneumonia, Uri nary tract infection Time of Disposition: 11:48 Disposition: Admit Patient Condition: Fair Departure Forms: ED Discharge - Pt. Copy, Patient Portal Self Enrollment Diet: resume usual diet Referrals: PRAMOD MANDEL MD [Primary Care Provider] - 1-2 Weeks Prescriptions: Oseltamivir Suspension [Tamiflu Suspension] 75 mg PO BID 5 Days ml Home Medications: Ambulatory Orders Acetaminophen W/ Codeine [Tylenol W/ CODEINE #3] 1 ea PO Q12H PRN 08/27/18 Gabapentin 100 mg PO TID 08/27/18 Mxplcwnscnj-Ppxklmje-Aega Sulf [Clear Eyes Seasonal Relie 0.012-0.2-0.25 %] 1 dona OP QID 08/27/18 Finasteride 5 mg PO DAILY 10/17/18 Metoprolol Tartrate [Lopressor] 25 mg PO DAILY 11/23/18 Oseltamivir Suspension [Tamiflu Suspension] 75 mg PO BID 5 Days ml 11/23/18 Pantoprazole Sodium 40 mg PO DAILY 11/23/18 Comments: CASE DISCUSSED WITH MS PAU MCKINLEY WHO AGREES TO ADMIT AND TAKE CARE OF HIS ACUTE MULTIPLE MEDICAL ISSUES WE HAVE STARED ANTIBIOTIC AFTER CULTURES GIVEN FIRST DOSE OF TAMIFLU
--- NOTE | 2018-11-23 10:17 | RAD ---
EXAM DESCRIPTION: Chest,2 Views CLINICAL HISTORY: Cough, weakness COMPARISON: Previous study October 17, 2018 TECHNIQUE: PA/lateral FINDINGS: Densities over the lower lung zones are thought to be overlying soft tissues. Ill-defined density in the right upper lobe is consistent with mild patchy infiltrate which is new compared to the previous study. In a patient with cough, this may represent patchy infiltrate. Additional vague density is seen in the medial right upper lobe projecting below the head of the clavicle which could be additional infiltrate. Follow-up is recommended to ensure complete clearance. Lateral view shows slight blunting of the posterior costophrenic angle on the left suggesting trace pleural fluid. Heart size is normal with normal pulmonary vascularity. No pneumothorax. Left lung is clear. Lateral view shows intact sternum and T-spine. IMPRESSION: Patchy infiltrates in the right upper lobe. Follow-up is recommended to ensure complete clearance. Electronically signed by: Del Valdes MD 11/23/2018 10:14 AM [facility]
[2018-11-23] MEDS ORDERED: OSELTAMIVIR PHOSPHATE 6 MG/ML BOTTLE PO ONE (10:35)
[2018-11-23] MEDS ORDERED: CEFEPIME 1 GM in SODIUM CHLORIDE 0.9% 50ML 50 ML IVPB ONE (11:16)
[2018-11-23] MEDS ORDERED: CEFEPIME 2 GM VIAL ONE ×3 (11:34→17:21)
[2018-11-23] MEDS ORDERED: SODIUM CHLORIDE 0.9% 50ML 0 ML ONE (11:35)
[2018-11-23] MEDS ORDERED: SODIUM CHLORIDE 0.9% 50ML 50 ML ONE (11:36)
--- NOTE | 2018-11-23 12:59 | HP ---
SUPERVISING PHYSICIAN: Angel Sadler MD CHIEF COMPLAINT: Coughing and upper respiratory symptoms times one week. HISTORY OF PRESENT ILLNESS: : This is a 78 year-old male patient who presented to the Emergency Room today after having one week of coughing and upper respiratory symptoms that had progressively worsened to the point that he had to come to the Emergency Room. He was in the hospital approximately one month ago with gastritis. He had no complaints of fever or chills. He described the coughing as dry, hacking coughing and he could not cough anything up. He has also been in the hospital frequently in the past, a few months for cellulitis of the lower extremity. In the Emergency Room, his initial vital signs were temperature of 99 that went up to 100.4. His heart rate was 104, blood pressure 164/88, respiratory rate 20, 02 saturation 93% on room air. Blood cultures were drawn as well as influenza swab. The flu swab was positive for influenza A. WBCs were 18,700 with a hemoglobin of 12.9 and hematocrit of 38.7. His neutrophils were 37.4%, sodium 129 with a potassium of 4.5, chloride 90, BUN 8, creatinine 0.73, serum osmolality 258.7 with a total bilirubin of 1.6. He has had a chronic indwelling catheter with reports that the catheter around the meatus of the penis had purulent drainage and the urine was dark with sedimentation in it, it was also cloudy. Urinalysis was positive for urinary tract infection with a small amount of urine blood, positive for urine nitrites, a large amount of urine leukocyte esterase, 5 to 10 urine RBC, greater than 50 urine WBCs and urine bacteria was obscured by WBCs. He was given Cefepime in the Emergency Room as well as some fluids. He was also given a dose of Tamiflu and I was called for hospital admission. PAST MEDICAL HISTORY: 1. Multiple episodes of cellulitis to the lower extremities. 2. Peripheral vascular disease. 3. Esophageal strictures with dilation per Dr. Ayala in the past. 4. History of alcohol abuse. 5. Lower extremity neuropathies. PAST SURGICAL HISTORY: 1. Multiple toe amputations. 2. Appendectomy. 3. Right hip repair. 4. Right knee repair. 5. Multiple esophageal dilations. 6. Recent cholecystectomy. CURRENT MEDICATIONS: Per the EMR and awaiting verification. ALLERGIES: IODINE. FAMILY HISTORY: Positive for coronary artery disease and diabetes. SOCIAL HISTORY: : He lives in [place]. He has a distant history of cigarette smoking but he quit several years ago. He drank alcoholic beverages many years ago but at this time he only drinks several beers. daily. . REVIEW OF SYSTEMS: GENERAL: Positive for fatigue, negative for fever, chills or weight changes. HEENT: Negative for vision changes, ear pain, sinus symptoms or sore throat. RESPIRATORY: As per history of present illness. . CARDIOVASCULAR: Negative for chest pain, palpitations or tachycardia. GASTROINTESTINAL: Negative for constipation, diarrhea nausea or vomiting. . GENITOURINARY: Positive for chronic indwelling Perez catheter. MUSCULOSKELETAL: Negative for myalgias or arthralgias. SKIN: Negative for lesions or rashes. NEUROLOGIC: Negative for headaches, dizziness or seizures. PHYSICAL EXAMINATION: VITAL SIGNS: Temperature 98, heart rate 95, blood pressure 145/68, respiratory rate 20, O2 saturation 94% on room air. GENERAL: This is a 78 year-old male patient lying in his hospital bed. He is in mild respiratory distress.. HEENT: Normocephalic and atraumatic. Pupils are equal and reactive. Oropharynx is clear. NECK: Supple without mass. There is no discernible jugular venous distention. RESPIRATORY: Bilateral scattered rhonchi throughout with some mild expiratory wheezing.diminished at the bases. Ge us slightly tachypneic at times. CARDIOVASCULAR: Regular rate and rhythm. ABDOMEN: Soft. nondistended, non-tender. Bowel sounds are positive. EXTREMITIES: Bilateral pedal pulses are palpable at +2. He does have several toe amputations. NEUROLOGIC: He is awake, alert and oriented times three. SKIN: Warm and dry. LABORATORY: Labs are as per history of present illness. RADIOLOGY: Chest x-ray shows patchy infiltrates in the right upper lobe. All other labs and films have been reviewed via the EMR. ASSESSMENT: 1. Sepsis related to right upper lobe pneumonia as well as urinary tract infection with an admitting WBC of 18,700, temperature of 101.9 and heart rate of 114. 2. Influenza A.. 3. Right upper lobe pneumonia, most likely community acquired, although patient has had multiple hospitalizations, his last one was less than one month ago. Also, there is a remote consideration of aspiration pneumonia as patient has had esophageal strictures as well as gastritis. 4. Urosepsis related to indwelling Perez catheter. 5. Urinary retention with a urinary obstruction. He was to see Dr. Salazar later this . month for removal of the catheter. 6. Electrolyte imbalance, mainly hyponatremia and hypochloridemia. 7. Hypobilirubinemia. 8. History of peripheral vascular disease. 9. Lower extremity neuropathies. PLAN: We will admit the patient to the hospital. We will continue the Cefepime as ordered in the Emergency Room and I will add Levaquin. I have also started him on a pneumonia protocol with aggressive pulmonary hygiene, nebulizer treatments. I have also started him on guaifenesin. We will monitor cultures closely, He is on a PPI for ulcer prophylaxis as well as Lovenox for DVT prophylaxis. Home medications will be restarted as soon as they are verified. We will continue to monitor him closely and follow as needed. . #[id number] [facility]
[2018-11-23] MEDS ORDERED: IBUPROFEN SUSP 100 MG/5 ML UD ONE (13:23)
[2018-11-23] MEDS ORDERED: IBUPROFEN SUSP 100 MG/5 ML UD PO ONE (13:25)
[2018-11-23] MEDS ORDERED: ONDANSETRON INJ 4 MG/2 ML VIAL IV PRN (15:49)
[2018-11-23] MEDS ORDERED: SODIUM CHLORIDE 0.9% (FLUSH) 10 ML SYG IV PRN (15:49)
[2018-11-23] MEDS ORDERED: IV SET AND CAP CHANGE INJ INJ SCH (16:00)
[2018-11-23] MEDS ORDERED: LEVALBUTEROL NEBS 1.25 MG/3 ML VIAL NEB PRN ×2 (16:08→16:10)
[2018-11-23] MEDS ORDERED: ACETAMINOPHEN W/COD #3 TAB 1 EA TAB PO PRN (16:11)
[2018-11-23] MEDS ORDERED: levoFLOXacin 500MG IV 100 ML IVPB ONE (16:34)
[2018-11-23] MEDS: SODIUM CHLORIDE 0.9% 1000ML 1,000 ML IVS PRN (17:18)
[2018-11-23] MEDS: levoFLOXacin 500MG IV 500 MG in PREMIX BAG 1 BAG IVPB SCH (17:18)
[2018-11-23] MEDS ORDERED: GABAPENTIN 100 MG CAP ONE (17:21)
[2018-11-23] MEDS ORDERED: OSELTAMIVIR 75 MG CAP ONE (17:22)
[2018-11-23] MEDS ORDERED: ENOXAPARIN SODIUM 40 MG/0.4 ML SYG SUBCU ONE (17:22)
[2018-11-23] MEDS ORDERED: SODIUM CHL 0.9% 50ML MIN-BAG+ 50 ML IVPB ONE (17:24)
[2018-11-23] MEDS: guaiFENesin 100 MG/5 ML 10 ML UD PO PRN (20:08)
[2018-11-23] MEDS: GABAPENTIN 100 MG CAP PO SCH (20:35)
[2018-11-23] MEDS: ENOXAPARIN SODIUM 40 MG/0.4 ML SYG SUBCU SCH (20:35)
[2018-11-23] MEDS: OSELTAMIVIR 75 MG CAP PO SCH (20:35)
[2018-11-23] MEDS: CEFEPIME 1 GM in SODIUM CHLORIDE 0.9% 50ML 50 ML IVPB SCH (20:37)
[2018-11-23] MEDS: SODIUM CHLORIDE 0.9% (FLUSH) 10 ML SYG IV SCH (20:39)
[2018-11-23] MEDS: LEVALBUTEROL NEBS 1.25 MG/3 ML VIAL NEB SCH (21:28)
[2018-11-24] MEDS ORDERED: PANTOPRAZOLE SODIUM IV 40 MG VIAL ONE (03:33)
[2018-11-24] MEDS: SODIUM CHLORIDE 0.9% 1000ML 1,000 ML IVS PRN ×3 (03:36→23:22)
[2018-11-24] MEDS: PANTOPRAZOLE SODIUM IV 40 MG VIAL IV SCH (06:14)
[2018-11-24] MEDS: guaiFENesin 100 MG/5 ML 10 ML UD PO PRN ×2 (06:15→20:19)
--- NOTE | 2018-11-24 07:33 | RAD ---
EXAM: Two view chest. INDICATION: Pneumonia. COMPARISON: Chest x-ray: 11/23/2018. FINDINGS: There are grossly stable infiltrates along the right upper lobe. There is a small left pleural effusion. The heart size is stable. There is no pneumothorax. The bones are unchanged. IMPRESSION: No significant change compared to the prior exam. Electronically signed by: Kota Weathers MD 11/24/2018 7:30 AM [facility] Workstation: [id number]
[2018-11-24] MEDS ORDERED: CEFEPIME 2 GM VIAL ONE ×2 (08:00→20:03)
[2018-11-24] MEDS ORDERED: SODIUM CHLORIDE 0.9% 50ML 50 ML ONE ×2 (08:01→20:04)
[2018-11-24] MEDS: CEFEPIME 1 GM in SODIUM CHLORIDE 0.9% 50ML 50 ML IVPB SCH ×2 (08:14→20:59)
[2018-11-24] MEDS: GABAPENTIN 100 MG CAP PO SCH ×3 (08:17→20:38)
[2018-11-24] MEDS: FINASTERIDE 5 MG TAB PO SCH (08:17)
[2018-11-24] MEDS: METOPROLOL TARTRATE 25 MG TAB PO SCH (08:18)
[2018-11-24] MEDS: OSELTAMIVIR 75 MG CAP PO SCH ×2 (08:18→20:37)
[2018-11-24] MEDS: SODIUM CHLORIDE 0.9% (FLUSH) 10 ML SYG IV SCH (08:19)
[2018-11-24] MEDS: LEVALBUTEROL NEBS 1.25 MG/3 ML VIAL NEB SCH ×4 (08:31→19:54)
[2018-11-24] MEDS ORDERED: POTASSIUM CHLORIDE 20 MEQ TAB PO ONE (08:54)
[2018-11-24] MEDS ORDERED: MAGNESIUM SULFATE PREMIX 2GM 2 GM in PREMIX BAG 1 BAG IVPB ONE (08:54)
[2018-11-24] MEDS ORDERED: MAGNESIUM SULFATE PREMIX 2GM 50 ML IVPB ONE (10:07)
--- NOTE | 2018-11-24 13:12 | PN ---
DATE: 11/24/18 SUPERVISING PHYSICIAN: Angel Sadler M.D. SUBJECTIVE: The patient is sitting up in his bed eating his lunch. He has no complaints of nausea, vomiting, diarrhea, constipation or chest pain He does have some shortness of breath with exertion, but he does feel somewhat better than he did on admission. He clarified that he was discharged from [facility] a little over a week prior to his admission to the hospital yesterday. OBJECTIVE: VITAL SIGNS: Temperature 97.5, heart rate 104, blood pressure 131/68, respiratory rate 20, O2 sat 93% on room air. RESPIRATORY: Diminished at the bases with scattered expiratory wheezes in the apices. He does have a few scattered rhonchi as well. He is slightly tachypneic when he talks and has to speak in short phrases. CARDIAC: Regular rate, irregular rhythm. At times he does get mildly tachycardic. GASTROINTESTINAL: Abdomen is soft, nondistended, non-tender. Bowel sounds are positive. NEUROLOGIC: He is awake, alert and oriented to person and place. LABORATORY: WBCs have improved to 13,300 with hemoglobin 10, hematocrit 30.7. Sodium has improved to 133 with potassium 3.3, glucose 111, magnesium 1.6. Preliminary blood cultures show no growth after 24 hours. Urine culture is pending. Chest x-ray shows no significant change compared to prior exam. All other labs and films have been reviewed via the EMR. ASSESSMENT: 1. Sepsis related to right upper lobe pneumonia as well as urinary tract infection with an admitting WBC of 18,700, temperature of 101.9 and heart rate of 114. 2. Influenza A.. 3. Right upper lobe pneumonia, most likely community acquired, although patient has had multiple hospitalizations, his last one was less than one month ago. Also, there is a remote consideration of aspiration pneumonia as patient has had esophageal strictures as well as gastritis. 4. Urosepsis related to indwelling Perez catheter. 5. Urinary retention with a urinary obstruction. He was to see Dr. Salazar later this . month for removal of the catheter. 6. Electrolyte imbalance. His hyponatremia has improved as well as his hyperchloremia. Today he has hypomagnesemia. 7. Hypobilirubinemia. 8. History of peripheral vascular disease. 9. Lower extremity neuropathies. PLAN: We will continue present supportive care. The patient will continue with aggressive pulmonary hygiene. I have given him some potassium and magnesium supplementation. Will monitor the cultures as they become available. I have consulted Physical Therapy as well as ordering ambulation 4 times daily. I encouraged good pulmonary hygiene. I have ordered lab and chest x-ray for in the morning. Will continue to monitor him closely and follow as needed. #[id number] [facility]
[2018-11-24] MEDS ORDERED: levoFLOXacin 500MG IV 100 ML IVPB ONE (17:05)
[2018-11-24] MEDS: levoFLOXacin 500MG IV 500 MG in PREMIX BAG 1 BAG IVPB SCH (17:19)
[2018-11-24] MEDS: ENOXAPARIN SODIUM 40 MG/0.4 ML SYG SUBCU SCH (20:37)
[2018-11-24] MEDS ORDERED: TETRAHYDROZOLINE HCL OPHTH SOL 1 DROP BOTH_EYES PRN (22:17)
--- NOTE | 2018-11-25 06:26 | RAD ---
PROCEDURE: XR Chest, 2 Views CLINICAL INDICATION: The patient is 78 years years old, Male; pna TECHNIQUE: Frontal and lateral views of the chest. COMPARISON: Portable chests 11/24/2018 and 05/05/2011 FINDINGS: LUNGS: Noted again is a spiculated opacity in the right upper lobe on the frontal projection measuring approximately 0.9 cm in diameter which was not present on remote study dated 05/05/2011. This could represent an area of pneumonia, scarring or atelectasis. Bibasilar discoid atelectasis and or scarring. Mild pneumonia in the right lower lobe not excluded. Hyperinflation and hyperlucency of the lungs is consistent with COPD, more specifically centrilobular emphysema or reactive airway disease. PLEURAL SPACE: There is blunting of the bilateral costophrenic angles consistent with small pleural effusions which has developed in the interim on the right but is unchanged on the left. In the setting of emphysema, cardiac insufficiency is a consideration. No pneumothorax. HEART: Unremarkable. No cardiomegaly. MEDIASTINUM: As below, otherwise unremarkable. BONES/JOINTS: There is no evidence of acute fracture, osseous destruction or osteoblastic changes. VASCULATURE: There is mild tortuosity and atherosclerosis of the aorta. IMPRESSION: 1. Noted again is a spiculated opacity in the right upper lobe on the frontal projection measuring approximately 0.9 cm in diameter which was not present on the remote study dated 05/05/2011. This could represent an area of pneumonia, scarring or atelectasis. Short-term follow-up to resolution is recommended to exclude neoplasm. 2. Minimal pleural fluid bilaterally in the setting of emphysema can indicate cardiac insufficiency. 3. Bibasilar discoid atelectasis and or scarring. Mild pneumonia in the right lower lobe not excluded. Electronically signed by: Sabra Jimenez MD 11/25/2018 6:23 AM INSURANCE CLAIMS ADJUSTER
[2018-11-25] MEDS: PANTOPRAZOLE SODIUM IV 40 MG VIAL IV SCH (06:30)
[2018-11-25] MEDS: SODIUM CHLORIDE 0.9% 1000ML 1,000 ML IVS PRN (06:30)
[2018-11-25] MEDS ORDERED: SODIUM CHLORIDE 0.9% 50ML 50 ML ONE ×2 (07:43→19:12)
[2018-11-25] MEDS ORDERED: CEFEPIME 2 GM VIAL ONE ×2 (07:43→19:11)
[2018-11-25] MEDS: LEVALBUTEROL NEBS 1.25 MG/3 ML VIAL NEB SCH ×4 (07:49→20:50)
[2018-11-25] MEDS: CEFEPIME 1 GM in SODIUM CHLORIDE 0.9% 50ML 50 ML IVPB SCH ×2 (08:07→20:42)
[2018-11-25] MEDS: GABAPENTIN 100 MG CAP PO SCH ×3 (08:07→20:44)
[2018-11-25] MEDS: OSELTAMIVIR 75 MG CAP PO SCH ×2 (08:07→20:44)
[2018-11-25] MEDS: METOPROLOL TARTRATE 25 MG TAB PO SCH (08:07)
[2018-11-25] MEDS: FINASTERIDE 5 MG TAB PO SCH (08:08)
[2018-11-25] MEDS ORDERED: MAGNESIUM SULFATE PREMIX 2GM 2 GM in PREMIX BAG 1 BAG IVPB ONE (08:33)
[2018-11-25] MEDS ORDERED: MAGNESIUM SULFATE PREMIX 2GM 50 ML IVPB ONE (09:21)
--- NOTE | 2018-11-25 14:54 | PN ---
DATE: 11/25/18 SUPERVISING PHYSICIAN: Angel Sadler M.D. SUBJECTIVE: The patient is lying in bed. He is eating his lunch. Has no complaints of chest pain, shortness of breath, nausea, vomiting, constipation. He still complains of being quite weak, especially when he gets up to go to the bathroom. I assured him that he would be getting physical therapy tomorrow. OBJECTIVE: VITAL SIGNS: Temperature 98.1, heart rate 113, blood pressure 125/70, respiratory rate 20, although he has some tachypnea several times in the past 24 hours. O2 sat 93% on room air. RESPIRATORY: Scattered rhonchi in the apices, diminished at the bases. CARDIAC: Regular rate. At times he is slightly tachycardic. Irregular rhythm. GASTROINTESTINAL: Abdomen is soft, nondistended, non-tender. Bowel sounds are positive. NEUROLOGIC: He is awake, alert and oriented times three. LABORATORY: WBCs have normalized to 8,500 with hemoglobin 10.1, hematocrit 30.2. Electrolytes are basically within normal limits with the exception of his magnesium which is 1.7. Serum glucose 108. Urine culture is still pending. Blood cultures are negative after 24 hours. Chest x-ray shows: 1) Noted again is a spiculated opacity in the right upper lobe on the frontal projection measuring approximately 0.9 cm in diameter which was not present on the remote study dated 05/05/11. This could represent an area of pneumonia, scarring or atelectasis. Short term followup to resolution is recommended to exclude neoplasm. 2) Minimal pleural fluid bilaterally in setting of emphysema can indicate cardiac insufficiency. 3) Bibasilar discoid atelectasis or scarring. Mild pneumonia in the right lower lobe not excluded. All other labs and films have been reviewed via the EMR. ASSESSMENT: 1. Sepsis related to right upper lobe pneumonia as well as urinary tract infection with an admitting WBC of 18,700, temperature of 101.9 and heart rate of 114. 2. Influenza A.. 3. Right upper lobe pneumonia, most likely community acquired, although patient has had multiple hospitalizations, his last one was less than one month ago. Also, there is a remote consideration of aspiration pneumonia as patient has had esophageal strictures as well as gastritis. 4. Urosepsis related to indwelling Perez catheter. 5. Urinary retention with a urinary obstruction. He was to see Dr. Salazar later this . month for removal of the catheter. 6. Electrolyte imbalance. His hyponatremia has improved as well as his hyperchloremia. Today he has hypomagnesemia. 7. Hypobilirubinemia. 8. History of peripheral vascular disease. 9. Lower extremity neuropathies. PLAN: We will continue present supportive care. I have given him some magnesium supplementation. I have also ordered a CT of the chest. I have ordered a BMP and a magnesium for in the morning. Will continue monitoring his cultures. He will need close followup on his x-rays, but I will hold on x-ray until the results of the CT are back. He will have physical therapy tomorrow. Will continue to monitor him closely and follow as needed. #[id number] [facility]
[2018-11-25] MEDS ORDERED: levoFLOXacin 500MG IV 100 ML IVPB ONE (16:25)
[2018-11-25] MEDS: levoFLOXacin 500MG IV 500 MG in PREMIX BAG 1 BAG IVPB SCH (16:30)
--- NOTE | 2018-11-25 17:10 | CT ---
EXAM DESCRIPTION: CT Chest w/o Contrast CLINICAL HISTORY: 78 years Male pna; neoplasm? COMPARISON: None except for current and prior chest radiographs. TECHNIQUE: Noncontrast axial scans of the chest were obtained. The lack of intravenous contrast administration limits hilar and mediastinal evaluation. Sagittal and coronal reformatted images were performed. This exam was performed according to our departmental dose-optimization program, which includes automated exposure control, adjustment of the mA and/or kV according to patient size and/or use of iterative reconstruction technique. FINDINGS: There are several small scattered areas of patchy parenchymal density in the right upper lobe. The largest ones are located in the lower anteromedial portion adjacent to the mediastinum and in the peripheral lower lateral portion. Both are adjacent to the minor fissure. These most likely represent small areas of patchy infiltrate or atelectasis and are not very masslike in appearance. There also appears to be slight subsegmental atelectasis or scarring just above the right hemidiaphragm and in the posterior left lower chest and the left base adjacent to the lower left heart margin, as well as slight apical pleural thickening and calcification, greater on the right. The lungs appear no definite suspicious pulmonary mass or major consolidation is identified. The lungs appear somewhat emphysematous. There are atherosclerotic changes in the thoracic aorta, with no gross evidence of focal aneurysm. Also seen are coronary and brachiocephalic arterial calcifications. Small nonspecific mediastinal and epicardial lymph nodes are noted. There are small bilateral pleural effusions, greater on the left than the right, and a small pericardial effusion versus pericardial thickening. No evidence of pneumothorax. Minor chronic changes are seen in the thoracic spine, including a probable vertebral hemangioma in the mid dorsal portion. IMPRESSION: Scattered small areas of parenchymal density, mostly in the right upper lobe, most likely due to patchy areas of infiltrate or subsegmental atelectasis. Small right and [id number] left pleural effusions and small pericardial effusion versus pericardial thickening. Follow-up is suggested. Electronically signed by: Troy Ray MD 11/25/2018 5:07 PM [facility]
[2018-11-25] MEDS: ENOXAPARIN SODIUM 40 MG/0.4 ML SYG SUBCU SCH (20:42)
[2018-11-25] MEDS: SODIUM CHLORIDE 0.9% (FLUSH) 10 ML SYG IV SCH (20:44)
[2018-11-26] MEDS: PANTOPRAZOLE SODIUM IV 40 MG VIAL IV SCH (05:42)
[2018-11-26] MEDS: LEVALBUTEROL NEBS 1.25 MG/3 ML VIAL NEB SCH ×2 (07:44→12:09)
[2018-11-26] MEDS ORDERED: CEFEPIME 2 GM VIAL ONE (08:30)
[2018-11-26] MEDS ORDERED: SODIUM CHLORIDE 0.9% 50ML 50 ML ONE (08:31)
[2018-11-26] MEDS: OSELTAMIVIR 75 MG CAP PO SCH (08:53)
[2018-11-26] MEDS: CEFEPIME 1 GM in SODIUM CHLORIDE 0.9% 50ML 50 ML IVPB SCH (08:53)
[2018-11-26] MEDS: METOPROLOL TARTRATE 25 MG TAB PO SCH (08:53)
[2018-11-26] MEDS: GABAPENTIN 100 MG CAP PO SCH (08:53)
[2018-11-26] MEDS: FINASTERIDE 5 MG TAB PO SCH (08:53)
[2018-11-26] MEDS: SODIUM CHLORIDE 0.9% (FLUSH) 10 ML SYG IV SCH (08:55)
[2018-11-26 13:39] VITALS: BP 145/64; TEMP 97.9; O2SAT 96
--- NOTE | 2018-12-12 08:51 | DS ---
SUPERVISING PHYSICIAN: Dioni Law MD ADMISSION DIAGNOSIS: 1. Sepsis related to right upper lobe pneumonia as well as urinary tract infection with an admitting WBC of 18,700, temperature of 101.9 and heart rate of 114. 2. Influenza A.. 3. Right upper lobe pneumonia, most likely community acquired, although patient has had multiple hospitalizations, his last one was less than one month ago. Also, there is a remote consideration of aspiration pneumonia as patient has had esophageal strictures as well as gastritis. 4. Urosepsis related to indwelling Perez catheter. 5. Urinary retention with a urinary obstruction. He was to see Dr. Salazar later this . month for removal of the catheter. 6. Electrolyte imbalance, mainly hyponatremia and hypochloridemia. 7. Hypobilirubinemia. 8. History of peripheral vascular disease. 9. Lower extremity neuropathies. DISCHARGE DIAGNOSIS: 1. Sepsis related to right upper lobe pneumonia as well as urinary tract infection with an admitting WBC of 18,700, temperature of 101.9 and heart rate of 114. 2. Influenza A.. 3. Right upper lobe pneumonia, most likely community acquired, although patient has had multiple hospitalizations, his last one was less than one month ago. Also, there is a remote consideration of aspiration pneumonia as patient has had esophageal strictures as well as gastritis. 4. Urosepsis related to indwelling Perez catheter. 5. Urinary retention with a urinary obstruction. He was to see Dr. Salazar later this month for removal of the catheter. 6. Electrolyte imbalance. His hyponatremia has improved as well as his hyperchloremia. Today he has hypomagnesemia. 7. Hypobilirubinemia. 8. History of peripheral vascular disease. 9. Lower extremity neuropathies. REASON FOR HOSPITALIZATION : This is a 78 year-old male patient who presented to the Emergency Room today after having one week of coughing and upper respiratory symptoms that had progressively worsened to the point that he had to come to the Emergency Room. He was in the hospital approximately one month ago with gastritis. He had no complaints of fever or chills. He described the coughing as dry, hacking coughing and he could not cough anything up. He has also been in the hospital frequently in the past, a few months for cellulitis of the lower extremity. In the Emergency Room, his initial vital signs were temperature of 99 that went up to 100.4. His heart rate was 104, blood pressure 164/88, respiratory rate 20, 02 saturation 93% on room air. Blood cultures were drawn as well as influenza swab. The flu swab was positive for influenza A. WBCs were 18,700 with a hemoglobin of 12.9 and hematocrit of 38.7. His neutrophils were 37.4%, sodium 129 with a potassium of 4.5, chloride 90, BUN 8, creatinine 0.73, serum osmolality 258.7 with a total bilirubin of 1.6. He has had a chronic indwelling catheter with reports that the catheter around the meatus of the penis had purulent drainage and the urine was dark with sedimentation in it, it was also cloudy. Urinalysis was positive for urinary tract infection with a small amount of urine blood, positive for urine nitrites, a large amount of urine leukocyte esterase, 5 to 10 urine RBC, greater than 50 urine WBCs and urine bacteria was obscured by WBCs. He was given Cefepime in the Emergency Room as well as some fluids. He was also given a dose of Tamiflu and I was called for hospital admission. LABORATORY: Initial white count was 18,700. At discharge, it was 8,500. Hemoglobin and hematocrit were stable at 10.1 and 30.2 with platelet count 317,000. Differential initially did show a left shift, but this resolved prior to discharge. Chemistries showed initial sodium 129, normalized at 135 prior to discharge. Potassium at discharge was 3.5, creatinine within normal limits at 0.68. Magnesium was low at 1.6, but with replacement, prior to discharge was up to 1.8. Total bilirubin initially was elevated at 1.6, but normalized to 0.5 prior to discharge. All other liver functions were within normal limits. Urinalysis showed small amount of blood, positive nitrites with large leukocyte esterase. Microscopic showed 5 to 10 RBCs, WBCs greater than 50, 0 epithelials and bacteria obscured by white cells. MICROBIOLOGY: Urine culture was pending at time of discharge. Blood cultures remained negative at 5 days. Influenza A and B by PCR was positive for A. HOSPITAL COURSE: Mr. Lema was admitted as noted on history of present illness for influenza A infection with right upper lobe pneumonia as well as urinary retention. He was started on antibiotic coverage with cefepime and aggressive pulmonary hygiene. He was treated aggressively and was showing good clinical response prior to discharge. PLAN: Mr. Lema was discharged on 11/26/18 with instructions to followup with his primary care provider, Dr. Sadler in 1 to 2 weeks. He was to resume his home medications as prior to hospitalization. He was told to return to the hospital for any worsening symptoms. DIET AT DISCHARGE: Regular diet as tolerated. ACTIVITIES: Increase as tolerated. MEDICATIONS PRESCRIBED AT DISCHARGE: 1. Omnicef 300 mg twice daily, #14. 2. Levaquin 500 mg twice daily, #14. 3. Tamiflu suspension 35 mg twice daily for 5 days. All other medications as prior to hospitalization were resumed which included: 1. Clear Eyes 1 drop both eyes daily. 2. Lopressor 25 mg daily. 3. Tylenol #3, 1 q.12h. as needed. 4. Pantoprazole 40 mg daily. 5. Gabapentin 100 mg t.i.d. 6. Finasteride 5 mg daily. CONDITION AT DISCHARGE: The patient was stable and improving. DISPOSITION: The patient was discharged to care of family members. #[id number] [facility]
== END 2018-11-26 14:55 | disposition home health service (06) | DRG 698 ==
LOC: ER 09:11 → MS 12:58 → OBSVTOIN 12:58
PROVIDERS: ADMIT Nurse Practitioner Acute Care; ATTEND Nurse Practitioner Family
DX: T83.511A Infection and inflammatory reaction due to indwelling urethral catheter, initial encounter (principal); J10.00 Influenza due to other identified influenza virus with unspecified type of pneumonia; A41.9 Sepsis, unspecified organism; E87.1 Hypo-osmolality and hyponatremia; N39.0 Urinary tract infection, site not specified; Y84.6 Urinary catheterization as the cause of abnormal reaction of the patient, or of later complication, without mention of misadventure at the time of the procedure; Y92.009 Unspecified place in unspecified non-institutional (private) residence as the place of occurrence of the external cause; N13.9 Obstructive and reflux uropathy, unspecified; I73.9 Peripheral vascular disease, unspecified; G62.9 Polyneuropathy, unspecified; E83.42 Hypomagnesemia; Z91.048 Other nonmedicinal substance allergy status

== ENCOUNTER 2018-12-20 11:04 | Emergency (ER) | payer MEDICARE ==
--- NOTE | 2018-12-20 12:15 | ED.PDOC ---
History of Present Illness - General Chief Complaint: Problem Stated Complaint: urinary retention Time Seen by Provider: 12/20/18 12:14 Source: patient Exam Limitations: no limitations - History of Present Illness Initial Comments: Nadya Lema 78 y/o male came to ER since unable to void after trimble cath was taken out yesterday by his urologist.Had trimble after his sugery and continued it when he went to Rehab stated had it for some time. Timing/Duration: yesterday Onset Location: unknown Radiation: none Activites at Onset: none Prior abdominal problems: none Sexual intercourse history: not active Improving Factors: nothing Worsening Factors: nothing Associated Symptoms: dysuria Allergies/Adverse Reactions: Allergies Iodine Allergy (Verified 10/17/18 16:45) Povidone Iodine [From Betadine] Allergy (Verified 10/17/18 16:45) Home Medications: Ambulatory Orders Gabapentin 100 mg PO TID 08/27/18 Finasteride 5 mg PO DAILY 10/17/18 Metoprolol Tartrate [Lopressor] 25 mg PO DAILY 11/23/18 Pantoprazole Sodium 40 mg PO DAILY 11/23/18 Sulfamethoxazole-Trimethoprim [Bactrim Ds 800-160 mg] 1 tablet PO BID 7 Days #14 tablet 12/20/18 Tamsulosin [Flomax] 0.4 mg PO QD #10 cap 12/20/18 Review of Systems - Review of Systems EENTM: States: no symptoms reported Respiratory: States: no symptoms reported Cardiology: States: no symptoms reported Gastrointestinal/Abdominal: States: no symptoms reported Genitourinary: States: see HPI, other - urinary retention Musculoskeletal: States: no symptoms reported Skin: States: no symptoms reported All other Systems: Reviewed and Negative, No Change from Baseline Past Medical History (General) - Patient Medical History Hx Seizures: No Hx Stroke: No Hx Dementia: No Hx Asthma: Yes Hx of COPD: No Hx Cardiac Disorders: Yes - PVD Hx Congestive Heart Failure: No Hx Pacemaker: No Hx Hypertension: Yes Hx Thyroid Disease: No Hx Diabetes: No Hx Gastroesophageal Reflux: No Hx Renal Disease: No Hx Cancer: No Hx of HIV: No Hx Hepatitis C: No Hx MRSA: No Surgical History: cholecystectomy - Vaccination History Hx Influenza Vaccination: Yes - 2018 Hx Pneumococcal Vaccination: No - Social History Hx Tobacco Use: Yes - Quit Hx Alcohol Use: Yes - drink 3 light beers/day Hx Substance Use: No Hx Substance Use Treatment: No Hx Depression: No Hx Physical Abuse: No Hx Emotional Abuse: No - Activities of Daily Living Patient Lives Alone: No Grooming Ability: Independent Eating (Feeding) Ability: Independent Toileting Ability: Independent - Female History Patient : No Family Medical History - Family History Mother Family History: Unknown Living Status: Hx Family Diabetes: Yes - dad Hx Family Cancer: Yes - throat-mom;pancreas-brother in remission Father Family History: Unknown Living Status: Physical Exam - Physical Exam General Appearance: Alert, Comfortable, No apparent distress Eyes, Ears, Nose, Throat Exam: normal ENT inspection, TMs normal Neck: supple, normal inspection Cardiovascular/Respiratory: regular rate, rhythm, normal peripheral pulses, normal breath sounds Gastrointestinal/Abdominal: soft, no organomegaly Rectal Exam: other - disteneded bladder Male Genital Exam: normal genitalia Extremity: no pedal edema, no calf tenderness Neurologic: alert, oriented x 3 Skin Exam: normal color, warm/dry Progress - Progress Progress: 12/20/18 14:16 12/20/18 11:44 Catheter:Trimble QSHIFT 12/20/18 12:15 Catheter:Trimble QSHIFT URINALYSIS Stat 12/20/18 12:16 URINALYSIS Stat Laboratory Results - last 24 hr 12/20/18 11:35 Urine Color Yellow Urine Appearance Sl cloudy Urine pH 5.5 Ur Specific [place] 1.010 Urine Protein Negative Urine Glucose (UA) Negative Urine Ketones Negative Urine Blood Small H Urine Nitrite Negative Urine Bilirubin Negative Urine Urobilinogen 0.2 Ur Leukocyte Esterase Negative Urine RBC 0 Urine WBC 0 Ur Epithelial Cells 0 Urine Bacteria 0 Urine Mucus Trace 12/20/18 14:16 Trimble Cath was placed by the nurse without difficulty and had Residual Urine of 1700 ml - Results/Orders Results/Orders: 12/20/18 11:44 Catheter:Trimble QSHIFT 12/20/18 12:15 Catheter:Trimble QSHIFT URINALYSIS Stat 12/20/18 12:16 URINALYSIS Stat Laboratory Results - last 24 hr 12/20/18 11:35 Urine Color Yellow Urine Appearance Sl cloudy Urine pH 5.5 Ur Specific [place] 1.010 Urine Protein Negative Urine Glucose (UA) Negative Urine Ketones Negative Urine Blood Small H Urine Nitrite Negative Urine Bilirubin Negative Urine Urobilinogen 0.2 Ur Leukocyte Esterase Negative Urine RBC 0 Urine WBC 0 Ur Epithelial Cells 0 Urine Bacteria 0 Urine Mucus Trace Departure - Departure Clinical Impression: Acute urinary retention Time of Disposition: 14:17 Disposition: Discharge to Home or Self Care Condition: Fair Departure Forms: ED Discharge - Pt. Copy, Patient Portal Self Enrollment Instructions: Urinary Retention (DC), Urinary Retention Referrals: PRAMOD MANDEL MD [Primary Care Provider] - 1-2 Weeks Prescriptions: Sulfamethoxazole-Trimethoprim [Bactrim Ds 800-160 mg] 1 tablet PO BID 7 Days #14 tablet Tamsulosin [Flomax] 0.4 mg PO QD #10 cap Home Medications: Ambulatory Orders Gabapentin 100 mg PO TID 08/27/18 Finasteride 5 mg PO DAILY 10/17/18 Metoprolol Tartrate [Lopressor] 25 mg PO DAILY 11/23/18 Pantoprazole Sodium 40 mg PO DAILY 11/23/18 Sulfamethoxazole-Trimethoprim [Bactrim Ds 800-160 mg] 1 tablet PO BID 7 Days #14 tablet 12/20/18 Tamsulosin [Flomax] 0.4 mg PO QD #10 cap 12/20/18 Additional Instructions: Need to call up your Urologist office today for recheck;Follow up with primary Md 24 Dec 2018;continue with all home medications
[2018-12-20 14:44] VITALS: BP 152/88; TEMP 97.7; O2SAT 98
== END 2018-12-20 14:43 | disposition home or self-care (01) ==
LOC: ER 11:04
DX: R33.9 Retention of urine, unspecified (principal); J45.909 Unspecified asthma, uncomplicated; I10 Essential (primary) hypertension; Z87.891 Personal history of nicotine dependence; Z79.899 Other long term (current) drug therapy; Z91.041 Radiographic dye allergy status

== ENCOUNTER → 2019-01-07 | Outpatient (CLI) | payer MEDICARE | LOC: GMAE 17:29 | PROVIDERS: ATTEND Family Medicine | DX: C18.9 Malignant neoplasm of colon, unspecified (principal) ==

== ENCOUNTER → 2019-06-05 | Outpatient (CLI) | payer MEDICARE | LOC: GMAE 15:18 | PROVIDERS: ATTEND Family Medicine | DX: N39.0 Urinary tract infection, site not specified (principal) ==

== ENCOUNTER → 2019-06-06 | Outpatient (CLI) | payer MEDICARE | LOC: YCHH 16:21 | PROVIDERS: ATTEND Family Medicine | DX: N39.0 Urinary tract infection, site not specified (principal) ==

== ENCOUNTER → 2019-07-02 | Outpatient (CLI) | payer MEDICARE | LOC: YCHH 14:21 | PROVIDERS: ATTEND Family Medicine | DX: N39.0 Urinary tract infection, site not specified (principal) ==

== ENCOUNTER → 2019-08-13 | Outpatient (CLI) | payer MEDICARE | LOC: YCHH 09:29 | PROVIDERS: ATTEND Family Medicine | DX: E11.9 Type 2 diabetes mellitus without complications (principal); R68.89 Other general symptoms and signs; M62.81 Muscle weakness (generalized); R53.1 Weakness; E78.5 Hyperlipidemia, unspecified ==

== ENCOUNTER → 2019-11-12 | Outpatient (CLI) | payer MEDICARE | LOC: YCHH 09:34 | PROVIDERS: ATTEND Family Medicine | DX: E11.9 Type 2 diabetes mellitus without complications (principal); R94.6 Abnormal results of thyroid function studies; E78.5 Hyperlipidemia, unspecified; R79.89 Other specified abnormal findings of blood chemistry; D50.9 Iron deficiency anemia, unspecified ==

== ENCOUNTER → 2020-02-18 | Outpatient (CLI) | payer MEDICARE | LOC: YCHH 09:32 | PROVIDERS: ATTEND Family Medicine | DX: E11.40 Type 2 diabetes mellitus with diabetic neuropathy, unspecified (principal); D64.9 Anemia, unspecified; E78.5 Hyperlipidemia, unspecified; R79.89 Other specified abnormal findings of blood chemistry ==

== ENCOUNTER 2020-05-26 12:28 | Inpatient (IN) | payer MEDICARE ==
--- NOTE | 2020-05-26 13:46 | RAD ---
EXAM DESCRIPTION: Abdomen Series CLINICAL HISTORY: weak, sob, known gb cancer COMPARISON: None. FINDINGS: AP supine and upright views of the abdomen show a nonspecific, nonobstructive bowel gas pattern with no evidence for free intraperitoneal air. No air-filled dilated loops of small bowel are seen. No significant air-fluid levels are identified. No obvious organomegaly is seen. No abnormal calcifications are seen in the expected location of the renal collecting systems. Cardiac silhouette and pulmonary vasculature are within normal limits. Lungs are normally aerated. Blunting of the right costophrenic angle. Increased interstitial thickening in the right lower chest. Linear radiopaque density in the left lower chest may be external to the patient. Correlate clinically. Mild to moderate disc degenerative changes of the spine with dextrocurvature of the spine. IMPRESSION: Nonspecific abdominal series Small right pleural effusion or pleural thickening with right lower lobe atelectasis or infiltrate is seen. Electronically signed by: Walt Davis MD 05/26/2020 1:44 PM CDT
[2020-05-26] MEDS ORDERED: methylPREDNISolone SODIUM SUC 125 MG/2 ML VIAL IV ONE (13:59)
[2020-05-26] MEDS ORDERED: AZITHROMYCIN IV 500 MG in SODIUM CHLORIDE 0.9% 250ML 250 ML IVPB ONE (13:59)
[2020-05-26] MEDS ORDERED: cefTRIAXone SODIUM 1 GM in SODIUM CHL 0.9% 50ML MIN-BAG+ 50 ML IVPB ONE (13:59)
[2020-05-26] MEDS ORDERED: SODIUM CHLORIDE 0.9% 1000ML 500 ML IVS ONE (14:00)
[2020-05-26] MEDS ORDERED: IPRATROPIUM/ALBUTEROL 3 ML VIAL NEB ONE ×2 (14:07→16:34)
--- NOTE | 2020-05-26 14:21 | ED.PDOC ---
History of Present Illness - General Chief Complaint: Respiratory Problem Stated Complaint: SOB, generalized weakness Time Seen by Provider: 05/26/20 12:46 Source: patient Exam Limitations: no limitations - History of Present Illness Initial Comments: The patient is an 79-year-old male presented emergency room secondary to progressive shortness of breath and weakness along with a right lower lobe intermittent sharp chest pain for the last 3 to 5 days. His family reports that he has been deteriorating since he had some dental work done about a week ago. The patient reports that he has gallbladder cancer that they are electing not to treat. He has chronic urinary retention and has a Perez catheter in place. Oral intake is significantly decreased over the last couple of days as has his activity level. He is weak and does require some help coming into the hospital. The patient is tachypneic though he is not hypoxic. The patient does exhibit significant wasting. The patient apparently had a negative coronavirus test on Monday. The patient is cooperative. Timing/Duration: other - About 5 days Severity: moderate Improving Factors: nothing Worsening Factors: nothing Associated Symptoms: loss of appetite, malaise, shortness of breath Allergies/Adverse Reactions: Allergies Iodine Allergy (Verified 05/26/20 12:51) Povidone Iodine [From Betadine] Allergy (Verified 05/26/20 12:51) Home Medications: Ambulatory Orders Gabapentin 100 mg PO TID 08/27/18 Finasteride 5 mg PO DAILY 10/17/18 Metoprolol Tartrate [Lopressor] 25 mg PO DAILY 11/23/18 Pantoprazole Sodium 40 mg PO DAILY 11/23/18 Sulfamethoxazole-Trimethoprim [Bactrim Ds 800-160 mg] 1 tablet PO BID 7 Days #14 tablet 12/20/18 Tamsulosin [Flomax] 0.4 mg PO QD #10 cap 12/20/18 Amoxicillin PO 05/26/20 Review of Systems - Review of Systems Constitutional: States: malaise, weakness EENTM: States: other - Very poor dentition Respiratory: States: short of breath Cardiology: States: no symptoms reported Gastrointestinal/Abdominal: States: nausea - Mild Genitourinary: States: no symptoms reported - Chronic urinary retention with Perez in place Musculoskeletal: States: no symptoms reported Skin: States: no symptoms reported Neurological: States: depressed Endocrine: States: no symptoms reported All other Systems: No Change from Baseline Past Medical History (General) - Patient Medical History Hx Seizures: No Hx Stroke: No Hx Dementia: No Hx Asthma: Yes Hx of COPD: No Hx Cardiac Disorders: Yes - PVD Hx Congestive Heart Failure: No Hx Pacemaker: No Hx Hypertension: Yes Hx Thyroid Disease: No Hx Diabetes: No Hx Gastroesophageal Reflux: No Hx Renal Disease: No Hx Cancer: No Hx of HIV: No Hx Hepatitis C: No Hx MRSA: No Surgical History: cholecystectomy - Vaccination History Hx Tetanus, Diphtheria Vaccination: Yes Hx Influenza Vaccination: Yes - 2018 Hx Pneumococcal Vaccination: Yes - Social History Hx Tobacco Use: Yes - Quit Hx Chewing Tobacco Use: No Hx Alcohol Use: No - drink 3 light beers/day Hx Substance Use: No Hx Substance Use Treatment: No Hx Depression: No Hx Physical Abuse: No Hx Emotional Abuse: No Hx Suspected Abuse: No - Female History Patient : No Family Medical History - Family History Mother Family History: Unknown Living Status: Hx Family Diabetes: Yes - dad Hx Family Cancer: Yes - throat-mom;pancreas-brother in remission Father Family History: Unknown Living Status: Physical Exam - Physical Exam General Appearance: Alert, Ill Appearing Eye Exam: bilateral normal - Possibly mild early jaundice Ears, Nose, Throat: hearing grossly normal, other - Poor dentition. No obvious abscess. Neck: non-tender, supple Respiratory: decreased breath sounds, accessory muscle use, rales - Right lower lobe, wheezing - Mild scattered Cardiovascular/Chest: normal peripheral pulses, no edema, other - Regular rate Peripheral Pulses: radial,right: 2+, radial,left: 2+ Gastrointestinal/Abdominal: soft, other - Mild diffuse discomfort to palpation Rectal Exam: deferred Back Exam: no CVA tenderness, no vertebral tenderness Extremity: normal range of motion, non-tender, normal inspection, no pedal edema, normal capillary refill Neurologic: thrill performer II-XII nml as tested, alert, normal mood/affect, oriented x 3 Skin Exam: pallor Comments: Vital Signs - 24 hr 05/26/20 12:54 Temperature 96.6 F L Pulse Rate [ 98 H Right Radial] Respiratory 28 H Rate Blood Pressure 158/93 [Left Arm] O2 Sat by Pulse 96 Oximetry Progress - Progress Progress: 05/26/20 14:23 The patient is a 79-year-old male presented emergency room secondary to progressive weakness, progressive shortness of breath, mild dehydration. The patient appears to have a significant right lower lobe pneumonia. He has been placed on Rocephin and azithromycin. Blood cultures being done. He will need to have a sputum culture done. We are testing for coronavirus though he tested -3 days ago. Oral intake does need to be encouraged with this patient. He does have significant wasting likely related to his reported cancer. He is receiving a breathing treatment. He may yet require some physical therapy for deconditioning. Admit for continued care. [email or web address] [email or web address] [phone] - Results/Orders Results/Orders: Mild right lower lobe infiltrate. Mild effusion. EKG shows normal sinus rhythm at 93 bpm with occasional PACs. Normal axis. Normal R wave progression. No ST segment or T wave changes indicative of acute ischemia. Normal QT interval. Laboratory Tests 05/26/20 05/26/20 05/26/20 12:55 12:55 12:55 WBC 14.0 H RBC 4.77 Hgb 14.9 Hct 42.0 MCV 88.2 MCH 31.2 H MCHC 35.4 RDW 14.3 Plt Count 493 H MPV 7.9 Absolute Neuts (auto) 11.00 H Absolute Lymphs (auto) 1.60 Absolute Monos (auto) 1.10 H Absolute Eos (auto) 0.10 Absolute Basos (auto) 0.10 Neutrophils % 78.6 H Lymphocytes % 11.4 L Monocytes % 8.0 Eosinophils % 1.1 Basophils % 0.9 PT 12.4 H INR 1.25 H PTT (SP) 28.5 D-Dimer, Quantitative 632.0 H* Sodium 132 L Potassium 3.7 Chloride 95 L Carbon Dioxide 24 Anion Gap 16.7 BUN 21 H Creatinine 1.07 BUN/Creatinine Ratio 19.6 Random Glucose 148 H Serum Osmolality 270.2 L Lactic Acid Calcium 9.1 Magnesium 1.6 L Total Bilirubin 1.9 H AST 40 ALT 28 Alkaline Phosphatase 81 Creatine Kinase 31 L CK-MB (CK-2) 1.3 CK-MB (CK-2) % Not Reportable Troponin I 0.04 B-Natriuretic Peptide 37.5 Serum Total Protein 8.0 Albumin 3.9 Globulin 4.1 H Albumin/Globulin Ratio 1.0 L Amylase 27 L Lipase 30 05/26/20 12:55 WBC RBC Hgb Hct MCV MCH MCHC RDW Plt Count MPV Absolute Neuts (auto) Absolute Lymphs (auto) Absolute Monos (auto) Absolute Eos (auto) Absolute Basos (auto) Neutrophils % Lymphocytes % Monocytes % Eosinophils % Basophils % PT INR PTT (SP) D-Dimer, Quantitative Sodium Potassium Chloride Carbon Dioxide Anion Gap BUN Creatinine BUN/Creatinine Ratio Random Glucose Serum Osmolality Lactic Acid 1.6 Calcium Magnesium Total Bilirubin AST ALT Alkaline Phosphatase Creatine Kinase CK-MB (CK-2) CK-MB (CK-2) % Troponin I B-Natriuretic Peptide Serum Total Protein Albumin Globulin Albumin/Globulin Ratio Amylase Lipase Departure - Departure Clinical Impression: Cachexia, Dehydration, Muscular deconditioning Pneumonia Qualifiers: Pneumonia type: due to unspecified organism Laterality: right Lung location: lower lobe of lung Qualified Code(s): J18.9 - Pneumonia, unspecified organism Disposition: Admit Patient Condition: Poor Departure Forms: ED Discharge - Pt. Copy, Patient Portal Self Enrollment Referrals: PRAMOD MANDEL MD [Primary Care Provider] - 1-2 Weeks Home Medications: Ambulatory Orders Gabapentin 100 mg PO TID 08/27/18 Finasteride 5 mg PO DAILY 10/17/18 Metoprolol Tartrate [Lopressor] 25 mg PO DAILY 11/23/18 Pantoprazole Sodium 40 mg PO DAILY 11/23/18 Sulfamethoxazole-Trimethoprim [Bactrim Ds 800-160 mg] 1 tablet PO BID 7 Days #14 tablet 12/20/18 Tamsulosin [Flomax] 0.4 mg PO QD #10 cap 12/20/18 Amoxicillin PO 05/26/20 Decision To Admit - Decistion To Admit Decision to Admit Reason: Medical Nature Decision to Admit Date: 05/26/20 Decision to Admit Time: 14:25
[2020-05-26] MEDS ORDERED: ACETAMINOPHEN 325 MG TAB PO PRN (16:40)
[2020-05-26] MEDS ORDERED: SODIUM CHLORIDE 0.9% (FLUSH) 10 ML SYG IV PRN (16:40)
[2020-05-26] MEDS ORDERED: ALBUTEROL SULFATE 2.5 MG/3 ML VIAL NEB PRN (16:40)
[2020-05-26] MEDS ORDERED: MAGNESIUM SULFATE PREMIX 2GM 2 GM in PREMIX BAG 1 BAG IVPB ONE (16:47)
[2020-05-26] MEDS ORDERED: KCL 20 MEQ/NS 1,000 ML IVS ONE (16:48)
[2020-05-26] MEDS ORDERED: IV SET AND CAP CHANGE INJ INJ SCH (17:00)
[2020-05-26] MEDS: TAMSULOSIN 0.4 MG CAP PO SCH (17:32)
[2020-05-26] MEDS ORDERED: METOPROLOL TARTRATE INJ 5 MG/5 ML VIAL IV ONE (18:18)
[2020-05-26] MEDS ORDERED: methylPREDNISolone SODIUM SUC 40 MG/ML VIAL ONE (19:19)
[2020-05-26] MEDS ORDERED: ENOXAPARIN SODIUM 40 MG/0.4 ML SYG SUBCU ONE (19:20)
[2020-05-26] MEDS ORDERED: PANTOPRAZOLE SODIUM IV 40 MG VIAL ONE (19:20)
[2020-05-26] MEDS ORDERED: GABAPENTIN 100 MG CAP ONE (19:20)
[2020-05-26] MEDS ORDERED: IPRATROPIUM/ALBUTEROL 3 ML VIAL INH SCH (20:00)
[2020-05-26] MEDS: SODIUM CHLORIDE 0.9% (FLUSH) 10 ML SYG IV SCH (20:18)
[2020-05-26] MEDS: GABAPENTIN 100 MG CAP PO SCH (20:18)
[2020-05-26] MEDS: ENOXAPARIN SODIUM 40 MG/0.4 ML SYG SUBCU SCH (20:18)
[2020-05-26] MEDS: methylPREDNISolone SODIUM SUC 40 MG/ML VIAL IV SCH (22:00)
[2020-05-26] MEDS: LEVALBUTEROL NEBS 1.25 MG/3 ML VIAL NEB PRN (23:44)
[2020-05-27] MEDS: methylPREDNISolone SODIUM SUC 40 MG/ML VIAL IV SCH ×3 (06:00→21:41)
[2020-05-27] MEDS: PANTOPRAZOLE SODIUM IV 40 MG VIAL IV SCH (06:00)
[2020-05-27] MEDS ORDERED: METOPROLOL SUCCINATE XL 25 MG TAB PO ONE (07:26)
[2020-05-27] MEDS ORDERED: AZITHROMYCIN IV 500 MG VIAL IVPB ONE (07:26)
[2020-05-27] MEDS ORDERED: FINASTERIDE 5 MG TAB ONE (07:26)
[2020-05-27] MEDS ORDERED: SODIUM CHLORIDE 0.9% 250ML 250 ML ONE (07:27)
[2020-05-27] MEDS: GABAPENTIN 100 MG CAP PO SCH ×3 (08:13→21:09)
[2020-05-27] MEDS: FINASTERIDE 5 MG TAB PO SCH (08:13)
[2020-05-27] MEDS: SODIUM CHLORIDE 0.9% (FLUSH) 10 ML SYG IV SCH ×2 (08:14→21:09)
[2020-05-27] MEDS: cefTRIAXone SODIUM 1 GM in SODIUM CHL 0.9% 50ML MIN-BAG+ 50 ML IVPB SCH (08:23)
[2020-05-27] MEDS: LEVALBUTEROL NEBS 1.25 MG/3 ML VIAL NEB PRN (08:45)
[2020-05-27] MEDS ORDERED: METOPROLOL SUCCINATE XL 25 MG TAB PO SCH (09:00)
[2020-05-27] MEDS ORDERED: guaiFENesin ER TAB 600 MG TAB PO SCH (10:00)
[2020-05-27] MEDS: AZITHROMYCIN IV 500 MG in SODIUM CHLORIDE 0.9% 250ML 250 ML IVPB SCH (10:00)
--- NOTE | 2020-05-27 10:06 | RAD ---
EXAM DESCRIPTION: Chest,2 Views CLINICAL HISTORY: Pneumonia COMPARISON: CT chest December 07, 2018,, chest x-ray December 07, 2018 TECHNIQUE: PA/lateral FINDINGS: Previous study showed infiltrate in the right upper lobe and in the lung bases and in the lingula. Upper lobes have cleared. Lingular and lung base areas appear improved. Blunting the right costophrenic angle consistent with pleural effusion or pleural scarring. Heart size is normal with normal pulmonary vascularity. No left sided pleural effusion or pneumothorax. Although lungs appear improved, densities are not completely resolved and continued follow-up is recommended. Plate pleural effusion appears slightly larger and partly loculated compared to previous. Lateral view shows intact sternum and T-spine. IMPRESSION: Right pleural effusion increased compared to previous. Clear upper lobes with persistent densities in the lower lung zones. Electronically signed by: Del Valdes MD 05/27/2020 10:04 AM CDT
--- NOTE | 2020-05-27 10:10 | HP ---
SUPERVISING PHYSICIAN: Junior Hoffman MD CHIEF COMPLAINT: Shortness of breath with weakness. HISTORY OF PRESENT ILLNESS: This is an 79-year-old male who came to the Emergency Room secondary to progressive shortness of breath and weakness with intermittent right lower chest pain that had been going on for about 3 to 4 days. His family reported that he had been deteriorating since he had dental work done about a week ago. He was seen at the respiratory clinic at [facility] last Lav[place] and was tested for COVID and it was negative. He does have gallbladder cancer and at this time, he is electing not to get any treatment. He also has chronic urinary retention and has a Perez catheter in place. His oral intake has been significantly decreased and his activity level has also been limited. In the Emergency Room, his initial vital signs showed a temperature of 96.6, heart rate 110-120, blood pressure 158/93, respiratory rate 28-30 and was significantly tachypneic. His O2 saturation was 94%. His labs showed WBC 14,000, hemoglobin 14.9, hematocrit 42. He had a left shift on his differential. D-dimer was elevated at 632. His sodium was 132, potassium 3.7, chloride 95, carbon dioxide 24, BUN 21, creatinine 1.07. Magnesium was 1.6, total bilirubin 1.9. Lactic acid 1.6. Urinalysis showed 100 urine protein, trace intact urine blood, positive urine nitrites, small amount of urine bilirubin and 5 to 10 urine WBCs. A urine culture was ordered. He also had blood cultures drawn. His chest x-ray shows small right pleural effusion or pleural thickening with right lower lobe atelectasis or infiltrate seen. His abdominal x-ray showed nonspecific abdominal series. The patient was given azithromycin and Rocephin in the Emergency Room as well as multiple breathing treatments. He was given a small amount of fluids and a dose of Solu-Medrol. He was admitted to the hospital in stable condition. Shortly after admission, his heart rate went up to the 170s shortly after his breathing treatment. His breathing treatments were changed to Xopenex and he was given one dose of metoprolol tartrate IV. His heart rate came down to about 110. PAST MEDICAL HISTORY: 1. Asthma. 2. Osteoarthritis. 3. Adenocarcinoma of the gallbladder. 4. Urinary retention with chronic Perez catheter. PAST SURGICAL HISTORY: 1. Appendectomy. 2. Cholecystectomy in 2019. 3. Tonsillectomy and adenoidectomy. 4. Right hip repair. 5. Cardiac cath in 2013. OUTPATIENT MEDICATIONS: 1. Metoprolol tartrate. 2. Gabapentin. 3. Pantoprazole. 4. Finasteride. 5. Symbicort. 6. Albuterol. ALLERGIES: IODINE. SOCIAL HISTORY: He lives alone. He is retired. He recently had a son that that was living with him. He does not drive. He denies any tobacco, ETOH or illicit drug use. REVIEW OF SYSTEMS: GENERAL: Positive for fatigue. Negative for fever or weight changes. HEENT: Negative for sinus symptoms, ear pain, vision changes or sore throat. RESPIRATORY: Positive for wheezing, coughing or shortness of breath. CARDIAC: Negative for chest pain, palpitations or tachycardia although he did have some pleuritic type pain on the right lower chest area. GASTROINTESTINAL: Negative for nausea, vomiting, diarrhea. GENITOURINARY: Negative for hematuria. He does have a chronic Perez catheter in place. MUSCULOSKELETAL: Negative for arthralgias, myalgias. SKIN: Negative for lesions or rashes, except for ulceration on right foot, that was present prior to arrival. NEUROLOGIC: Negative for headaches, dizziness or seizures. PHYSICAL EXAMINATION: VITAL SIGNS: Temperature 97.8, heart rate 116, blood pressure 143/81, respiratory rate 20 to 22, O2 saturation 92% on room air. GENERAL: This is an 79-year-old male patient lying in his hospital bed. He is in mild respiratory distress. HEENT: Normocephalic, atraumatic. Pupils are equal and reactive. He does have poor dentition. Oropharynx is clear. NECK: Supple without mass. RESPIRATORY: Diminished breath sounds throughout. He does have some mild expiratory wheezing, especially on the right side. He is visibly tachypneic and gets short of breath with speaking. He can only speak in 2 to 3 word phrases without getting extremely short of breath. CHEST: There is equal rise and fall of the chest with inspiration and expiration. CARDIOVASCULAR: Tachycardic rate and regular rhythm. GASTROINTESTINAL: Abdomen is soft. It is diffusely tender on the right upper quadrant, but there is no rebound tenderness or guarding. NEUROLOGIC: Awake, alert and oriented times three. SKIN: Warm and dry. LABORATORY: Labs and films are as per history of present illness. He did have a negative troponin at 0.04. IMPRESSION: 1. Sepsis related to right lower lobe pneumonia, community acquired. His heart rate was 120, respiratory rate was 28 to 30 and his WBCs were 14,000. 2. Urinary tract infection that is most likely exacerbating #1. 3. Asthma. 4. Osteoarthritis. 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 7. Decubitus ulcer to right foot, stage 2, present prior to arrival. PLAN: We will initiate the pneumonia guidelines and continue on azithromycin and Rocephin. He will have aggressive pulmonary hygiene. His albuterol respiratory treatments have been changed to Xopenex due to his elevated heart rate. He is having difficulty with swallowing his pills, so I have changed him to metoprolol tartrate twice daily so they can be crushed. Also, on Mucinex. His Perez catheter will be changed out and we will monitor his culture results. I will talk to him tomorrow about his code status. I will taper him off of IV steroids and change him to oral prednisone. He will also have Mucinex and Align. Will do scheduled wound care and Perez care. He does have [facility]. I also ordered a proton pump inhibitor for ulcer prophylaxis and Lovenox for DVT prophylaxis. We will continue to monitor the patient closely and follow as needed. #[id number] MTDD
--- NOTE | 2020-05-27 11:55 | PN ---
SUPERVISING PHYSICIAN: Junior Hoffman MD DATE: 05/27/20 SUBJECTIVE: The patient is sitting up in bed. He still feels quite weak and short of breath, but he feels better than yesterday. We discussed his code status and he does want to be a full code. We also discussed discharge planning and he has agreed to go to [facility] at discharge. OBJECTIVE: VITAL SIGNS: Temperature 98.1, heart rate 83, blood pressure 128/73, respiratory rate 20 to 22, O2 saturation 92% on room air. RESPIRATORY: Diminished breath sounds throughout. CARDIAC: Regular rate and rhythm. NEUROLOGIC: Awake, alert and oriented times three. LABORATORY: WBCs have slightly improved to 13,100 with hemoglobin 13.3, hematocrit 38.5. He does have a left shift on his differential. Sodium 132, potassium 3.9, chloride 100, magnesium 2.1. Preliminary blood cultures show no growth. Urine culture pending. Chest x-ray shows right pleural effusion increased compared to previous, clear upper lobes, persistent densities in the lower lung zones. All other labs and films have been reviewed via the EMR. ASSESSMENT: 1. Sepsis related to right lower lobe pneumonia, community acquired. His heart rate was 120, respiratory rate was 28 to 30 and his WBCs were 14,000. 2. Urinary tract infection that is most likely exacerbating #1. 3. Asthma. 4. Osteoarthritis. 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 7. Decubitus ulcer to right foot, stage 2, present prior to arrival. PLAN: We will continue present supportive care. A referral has been made to [facility] for discharge planning. I have titrated his IV Solu-Medrol off and he will start his p.o. prednisone. I have also given him Mucinex and Align. I have also continued his scheduled nebulizer treatments. I have ordered some labs for in the morning. We will continue to monitor the patient closely and follow as needed. #[id number] MTDD
[2020-05-27] MEDS: guaiFENesin 100 MG/5 ML 10 ML UD PO SCH ×3 (15:34→23:46)
[2020-05-27] MEDS ORDERED: METOPROLOL TARTRATE 25 MG TAB PO ONE (16:32)
[2020-05-27] MEDS: TAMSULOSIN 0.4 MG CAP PO SCH (16:57)
[2020-05-27] MEDS: ALBUTEROL SULFATE 2.5 MG/3 ML VIAL NEB SCH (20:00)
[2020-05-27] MEDS: ENOXAPARIN SODIUM 40 MG/0.4 ML SYG SUBCU SCH (21:09)
[2020-05-28] MEDS: PANTOPRAZOLE SODIUM IV 40 MG VIAL IV SCH (05:52)
[2020-05-28] MEDS: guaiFENesin 100 MG/5 ML 10 ML UD PO SCH ×4 (05:52→23:56)
[2020-05-28] MEDS ORDERED: predniSONE 20 MG TAB ONE (07:04)
[2020-05-28] MEDS ORDERED: METOPROLOL TARTRATE 50 MG TAB ONE (07:05)
[2020-05-28] MEDS: ALBUTEROL SULFATE 2.5 MG/3 ML VIAL NEB SCH ×4 (08:20→20:00)
[2020-05-28] MEDS ORDERED: METOPROLOL TARTRATE 25 MG TAB PO SCH (09:00)
[2020-05-28] MEDS: cefTRIAXone SODIUM 1 GM in SODIUM CHL 0.9% 50ML MIN-BAG+ 50 ML IVPB SCH (09:46)
[2020-05-28] MEDS: METOPROLOL TARTRATE 50 MG TAB PO SCH ×2 (09:47→20:45)
[2020-05-28] MEDS: predniSONE 20 MG TAB PO SCH (09:47)
[2020-05-28] MEDS: FINASTERIDE 5 MG TAB PO SCH (09:47)
[2020-05-28] MEDS: SODIUM CHLORIDE 0.9% (FLUSH) 10 ML SYG IV SCH ×2 (09:48→20:45)
[2020-05-28] MEDS: GABAPENTIN 100 MG CAP PO SCH ×3 (09:48→20:45)
[2020-05-28] MEDS: AZITHROMYCIN IV 500 MG in SODIUM CHLORIDE 0.9% 250ML 250 ML IVPB SCH (10:31)
--- NOTE | 2020-05-28 13:26 | PN ---
SUPERVISING PHYSICIAN: Junior Hoffman MD DATE: 05/28/20 SUBJECTIVE: The patient is resting comfortably. He does not have any major complaints. He is still a little short of breath, but feels like he is improving. I did discuss his plan of care and his discharge anticipated either tomorrow or Monday to [facility]. Review of his labs did show his white count significantly increased to 24,000 with a left shift and bands, but his blood cultures have been negative so far and he has been afebrile. He is not having any signs of worsening sepsis. I feel like it is probably related to his steroids. He did mention he has had some dental work in the past month or so and he does not have any complaints of any areas that are suspicious for ongoing infection. OBJECTIVE: VITAL SIGNS: Afebrile. Temperature 98, pulse 91, blood pressure 122/67, respirations 16, saturation 95% on room air. GENERAL: The patient is resting comfortably, does not appear to be in any distress. CHEST: Lungs are clear, just a little diminished towards the bases. I do not hear any obvious rhonchi or wheezing or rales. HEART: Regular rate and rhythm. ABDOMEN: Soft, nontender. Positive bowel sounds. EXTREMITIES: No edema. NEUROLOGIC: Alert and oriented times three. LABORATORY: White count has gone up to 24,000 from 13,000. He does have a left shift with 2% bands. Hemoglobin 13.2, hematocrit 37.0, seem to be stable. Platelet count 428,000. Chemistries show sodium 132, otherwise electrolytes within normal limits. Creatinine 0.71, calcium 8.6, magnesium 1.8. Liver functions all within normal limits. MICROBIOLOGY: Urine culture so far shows no growth at 48 hours. Blood cultures remain negative. RADIOLOGY: No additional radiographic studies today. ASSESSMENT: 1. Sepsis secondary to right lower lobe pneumonia, community acquired, with a worsening white count at 24,000 with some bands. No obvious signs of acute deterioration, probably related to ongoing steroid administration with blood cultures remaining negative and urine culture showing no growth. 2. Urinary tract infection with current culture showing no growth at 48 hours. 3. Asthma with exacerbation secondary to #1. 4. Osteoarthritis. 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 7. Decubitus ulcer to right foot, stage 2, present prior to arrival. PLAN: The patient has been accepted to [facility]. Hopefully, we will be able to discharge him tomorrow once everything is in place. In regards to his white count, we will closely watch him clinically to ensure he is not febrile and does not show any acute clinical deterioration. This may be all related to steroid administration. We will plan to repeat labs in the morning. He currently is on p.o. prednisone and Align. Hopefully, we will be able to transition the patient to outpatient management in the morning. If not, by Monday. Until then, we will continue to monitor and treat as needed. #[id number] MTDD
[2020-05-28] MEDS: TAMSULOSIN 0.4 MG CAP PO SCH (16:34)
[2020-05-28] MEDS: ENOXAPARIN SODIUM 40 MG/0.4 ML SYG SUBCU SCH (20:45)
[2020-05-29] MEDS: guaiFENesin 100 MG/5 ML 10 ML UD PO SCH ×2 (05:51→12:53)
[2020-05-29] MEDS: PANTOPRAZOLE SODIUM IV 40 MG VIAL IV SCH (05:51)
[2020-05-29] MEDS ORDERED: BIFIDOBACTERIUM INFANTIS 4 MG CAP PO SCH (09:00)
[2020-05-29] MEDS: ALBUTEROL SULFATE 2.5 MG/3 ML VIAL NEB SCH ×2 (09:47→13:15)
[2020-05-29 10:02] VITALS: BP 128/63; TEMP 97.7; O2SAT 93
[2020-05-29] MEDS: GABAPENTIN 100 MG CAP PO SCH (10:30)
[2020-05-29] MEDS: predniSONE 20 MG TAB PO SCH (10:30)
[2020-05-29] MEDS: METOPROLOL TARTRATE 50 MG TAB PO SCH (10:30)
[2020-05-29] MEDS: FINASTERIDE 5 MG TAB PO SCH (10:30)
[2020-05-29] MEDS: cefTRIAXone SODIUM 1 GM in SODIUM CHL 0.9% 50ML MIN-BAG+ 50 ML IVPB SCH (10:30)
[2020-05-29] MEDS: SODIUM CHLORIDE 0.9% (FLUSH) 10 ML SYG IV SCH (10:34)
[2020-05-29] MEDS: AZITHROMYCIN IV 500 MG in SODIUM CHLORIDE 0.9% 250ML 250 ML IVPB SCH (11:00)
--- NOTE | 2020-05-29 13:38 | DS ---
SUPERVISING PHYSICIAN: Junior Hoffman MD ADMISSION DIAGNOSIS: 1. Sepsis related to right lower lobe pneumonia, community acquired. His heart rate was 120, respiratory rate was 28 to 30 and his WBCs were 14,000. 2. Urinary tract infection that is most likely exacerbating #1. 3. Asthma. 4. Osteoarthritis. 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 7. Decubitus ulcer to right foot, stage 2, present prior to arrival. DISCHARGE DIAGNOSIS: 1. Sepsis secondary to right lower lobe pneumonia, community acquired. 2. Urinary tract infection with culture showing no growth at 48 hours. 3. Asthma with exacerbation, acute, secondary to #1, improving with treatment. 4. Osteoarthritis. 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 7. Decubitus ulcer to right foot, stage 2, present prior to arrival. REASON FOR HOSPITALIZATION: This is an 79-year-old male who came to the Emergency Room secondary to progressive shortness of breath and weakness with intermittent right lower chest pain that had been going on for about 3 to 4 days. His family reported that he had been deteriorating since he had dental work done about a week ago. He was seen at the respiratory clinic at [facility] last Monday and was tested for COVID and it was negative. He does have gallbladder cancer and at this time, he is electing not to get any treatment. He also has chronic urinary retention and has a Perez catheter in place. His oral intake has been significantly decreased and his activity level has also been limited. In the Emergency Room, his initial vital signs showed a temperature of 96.6, heart rate 110-120, blood pressure 158/93, respiratory rate 28-30 and was significantly tachypneic. His O2 saturation was 94%. His labs showed WBC 14,000, hemoglobin 14.9, hematocrit 42. He had a left shift on his differential. D-dimer was elevated at 632. His sodium was 132, potassium 3.7, chloride 95, carbon dioxide 24, BUN 21, creatinine 1.07. Magnesium was 1.6, total bilirubin 1.9. Lactic acid 1.6. Urinalysis showed 100 urine protein, trace intact urine blood, positive urine nitrites, small amount of urine bilirubin and 5 to 10 urine WBCs. A urine culture was ordered. He also had blood cultures drawn. His chest x-ray shows small right pleural effusion or pleural thickening with right lower lobe atelectasis or infiltrate seen. His abdominal x-ray showed nonspecific abdominal series. The patient was given azithromycin and Rocephin in the Emergency Room as well as multiple breathing treatments. He was given a small amount of fluids and a dose of Solu-Medrol. He was admitted to the hospital in stable condition. Shortly after admission, his heart rate went up to the 170s shortly after his breathing treatment. His breathing treatments were changed to Xopenex and he was given one dose of metoprolol tartrate IV. His heart rate came down to about 110. LABORATORY: White count on discharge was 17,500 with a left shift. Hemoglobin 12.6, hematocrit 36.6, platelet count 430. Coagulation studies showed a slightly elevated D-dimer at 632, PT 12.4, INR 1.25. Chemistries on discharge showed electrolytes with sodium 132. All other electrolytes were within normal limits. Creatinine 0.71. Liver functions all within normal limits. Urinalysis on admission showed positive nitrites, small amount of bilirubin, 5 to 10 WBCs, 3 to 5 epithelials, small amount of mucus, 1+ bacteria. MICROBIOLOGY: Blood cultures negative at 48 hours. Urine culture, final, showed no growth at 48 hours. Respiratory panel was negative for all viral and bacterial targets. RADIOLOGY: Chest x-ray on admission per radiologic interpretation showed a right pleural effusion increased compared to previous with clear upper lobes, persistent in the lower lung zones. HOSPITAL COURSE: Mr. Lema was admitted as noted above for treatment of a questionable urinary tract infection and right lower lobe pneumonia. He was started on antibiotics with azithromycin and Rocephin. He did have a little issue with his heart rate going up into the 160s and 170s, but with increase of his metoprolol, he was controlled prior to discharge. He clinically improved well enough to continue with outpatient management, but considering that he was significantly deconditioned, referred was sent to [facility] for the patient to be admitted to correction and he was accepted for admission prior to discharge. Vital signs on discharge showed he was afebrile at 97.7 with pulse 83, blood pressure 128/63, respirations 20, saturation 93% on room air. PLAN: Mr. Lema was discharged to be admitted to correction at [facility]. Orders per [facility]p included admission to correction at [facility]. He is to have a physical therapy evaluation for treatment. Medications as per his medical administration record. Respiratory treatments per protocol and medical administration record. Diet was usual diet as tolerated with dietary consult. Activity level per physical therapy, increase as tolerated. He is to followup with Dr. Sadler in one to two weeks and to call their office to establish appointment date and time. They are to call Dr. Sadler's office for any questions and instructed to return to the Emergency Department should he have any concerning symptoms or other problems. MEDICATIONS ON DISCHARGE: 1. Finasteride 5 mg daily. 2. Gabapentin 100 mg t.i.d. 3. Pantoprazole 40 mg daily. 4. Align 4 mg daily. 5. Flomax 0.4 mg daily. 6. Metoprolol 50 mg b.i.d. 7. Magnesium hydroxide 30 mL p.r.n. as needed for constipation. 8. Cefdinir 200 mg b.i.d. for 6 days. 9. Prednisone tapering pack 10 mg with 12-day taper. 10. Tylenol 500 mg q.6h. as needed for pain or fever. 11. Xopenex treatments 1.25 mg per 3 mL per nebulizer as needed for shortness of breath. CONDITION ON DISCHARGE: Stable and improved. DISPOSITION: The patient was admitted to [facility] at [facility]. #[id number] MTDD
== END 2020-05-29 14:35 | DRG 871 ==
LOC: ER 12:28 → OBSVTOIN 16:36 → MS 16:36
PROVIDERS: ADMIT Nurse Practitioner Acute Care; ATTEND Nurse Practitioner Family
DX: A41.9 Sepsis, unspecified organism (principal); J18.9 Pneumonia, unspecified organism; N39.0 Urinary tract infection, site not specified; J45.901 Unspecified asthma with (acute) exacerbation; R64 Cachexia; E86.0 Dehydration; L89.892 Pressure ulcer of other site, stage 2; M19.90 Unspecified osteoarthritis, unspecified site; I10 Essential (primary) hypertension; I73.9 Peripheral vascular disease, unspecified; R33.9 Retention of urine, unspecified; Z90.49 Acquired absence of other specified parts of digestive tract; Z79.51 Long term (current) use of inhaled steroids; Z91.048 Other nonmedicinal substance allergy status; Z60.2 Problems related to living alone; Z85.09 Personal history of malignant neoplasm of other digestive organs; Z96.0 Presence of urogenital implants; Z87.891 Personal history of nicotine dependence; Z68.21 Body mass index [BMI] 21.0-21.9, adult; Z79.899 Other long term (current) drug therapy

== ENCOUNTER → 2020-08-11 | Outpatient (CLI) | payer MEDICARE | LOC: YCHH 09:23 | PROVIDERS: ATTEND Family Medicine | DX: E03.9 Hypothyroidism, unspecified (principal); E11.40 Type 2 diabetes mellitus with diabetic neuropathy, unspecified; D64.9 Anemia, unspecified; E78.5 Hyperlipidemia, unspecified; R79.89 Other specified abnormal findings of blood chemistry ==

== ENCOUNTER 2020-10-19 15:22 | Emergency (ER) | payer MEDICARE ==
[2020-10-19] MEDS ORDERED: ALBUTEROL INHALER 64 PUFF/8GM INH PRN (15:44)
--- NOTE | 2020-10-19 15:49 | ED.PDOC ---
History of Present Illness - General Stated Complaint: Cough, Dyspnea Time Seen by Provider: 10/19/20 15:24 Source: patient Exam Limitations: no limitations Additional Information: Sent from clinic for low O2 sats - History of Present Illness Initial Comments: History of prior pneumonia. c/o dry cough x 2 days, worse than chronc baseline cough. ? fever/chills. Timing/Duration: other - Snce yesterday Severity: moderate Improving Factors: nothing Worsening Factors: nothing Associated Symptoms: cough, headaches Allergies/Adverse Reactions: Allergies Iodine Allergy (Verified 10/19/20 15:48) Povidone Iodine [From Betadine] Allergy (Verified 10/19/20 15:48) Home Medications: Ambulatory Orders Gabapentin 100 mg PO TID 08/27/18 Finasteride 5 mg PO DAILY 10/17/18 Pantoprazole Sodium 40 mg PO DAILY 11/23/18 Tamsulosin [Flomax] 0.4 mg PO QD #10 cap 12/20/18 Acetaminophen [Tylenol] 500 mg PO Q6H PRN #120 tab 05/29/20 Bifidobacterium Infantis [Align] 4 mg PO DAILY cap 05/29/20 Cefdinir [Omnicef] 300 mg PO BID #12 cap 05/29/20 Levalbuterol Nebs [Xopenex NEBS] 3 ml INH TID PRN #90 vial 05/29/20 Magnesium Hydroxide [Milk Of Magnesia] 30 ml PO DAILY PRN #30 ud 05/29/20 Metoprolol Tartrate 50 mg PO BID #60 tab 05/29/20 Prednisone See Taper PO DAILY 12 Days #30 tab 05/29/20 Albuterol Inhaler [Ventolin Hfa Inhaler] 0 gm INH Q4H PRN #1 inh 10/19/20 Albuterol Inhaler [Ventolin Hfa Inhaler] 2 puff INH Q4HR PRN #1 inh 10/19/20 Azithromycin [Zithromax Z-Hever] 250 mg PO DAILY 5 Days #6 tab MDD 500 10/19/20 Azithromycin [Zithromax Z-Hever] 250 mg PO DAILY 5 Days #6 tab MDD 500 10/19/20 predniSONE 20 mg PO DAILY 5 Days #15 tab 10/19/20 predniSONE 60 mg PO DAILY 5 Days #15 tab 10/19/20 Review of Systems - Review of Systems Constitutional: States: chills, fever EENTM: States: nose congestion. Denies: throat pain Respiratory: States: cough, short of breath, wheezing Cardiology: Denies: chest pain Gastrointestinal/Abdominal: States: no symptoms reported Genitourinary: States: no symptoms reported - Lonstanding indwelling trimble catheter, other Musculoskeletal: States: no symptoms reported Skin: States: no symptoms reported Neurological: States: no symptoms reported Endocrine: States: no symptoms reported Hematologic/Lymphatic: States: no symptoms reported Past Medical History (General) - Patient Medical History Hx Seizures: No Hx Stroke: No Hx Dementia: No Hx Asthma: Yes Hx of COPD: No Hx Cardiac Disorders: Yes - PVD Hx Congestive Heart Failure: No Hx Pacemaker: No Hx Hypertension: Yes Hx Thyroid Disease: No Hx Diabetes: No Hx Gastroesophageal Reflux: No Hx Renal Disease: No Hx Cancer: No Hx of HIV: No Hx Hepatitis C: No Hx MRSA: No - Vaccination History Hx Tetanus, Diphtheria Vaccination: Yes Hx Influenza Vaccination: Yes - 2018 Hx Pneumococcal Vaccination: Yes - Social History Hx Tobacco Use: Yes - Quit Hx Chewing Tobacco Use: No Hx Alcohol Use: No - drink 3 light beers/day Hx Substance Use: No Hx Substance Use Treatment: No Hx Depression: No Hx Physical Abuse: No Hx Emotional Abuse: No Hx Suspected Abuse: No - Female History Patient : No Family Medical History - Family History Mother Family History: Unknown Living Status: Hx Family Diabetes: Yes - dad Hx Family Cancer: Yes - throat-mom;pancreas-brother in remission Father Family History: Unknown Living Status: Physical Exam - Physical Exam General Appearance: Alert Eye Exam: bilateral normal Ears, Nose, Throat: hearing grossly normal, normal ENT inspection, normal pharynx Neck: non-tender Respiratory: no respiratory distress, no accessory muscle use, wheezing - Mild, bilateral Cardiovascular/Chest: normal peripheral pulses, regular rate, rhythm, no edema, no JVD Gastrointestinal/Abdominal: normal bowel sounds, non tender, soft Extremity: normal range of motion, non-tender, no calf tenderness Neurologic: spray unit feeder II-XII nml as tested, no motor/sensory deficits, alert, normal mood/affect Skin Exam: normal color, warm/dry Lymphatic: no adenopathy Progress - Progress Progress: 10/19/20 16:32 10/19/20 15:44 Albuterol Inhaler [Ventolin Hfa Inhaler] 2 puff INH PRN PRN EKG Assessment ONCE 10/19/20 15:45 BLOOD CULTURE Stat EKG STAT 10/19/20 16:00 B-TYPE NATRIURETIC PEPTIDE/BNP Stat C-REACTIVE PROTEIN Stat CARDIAC PANEL,ER Stat FERRITIN Stat LD-L/LDH Stat D-DIMER,QUANTITATIVE Stat FIBRINOGEN Stat RAPID SARS-CoV-2 RNA Stat Laboratory Results - last 24 hr 10/19/20 16:00 WBC 12.3 H RBC 4.84 Hgb 14.6 Hct 43.3 MCV 89.6 MCH 30.2 MCHC 33.7 RDW 14.8 H Plt Count 291 MPV 7.8 Absolute Neuts (auto) 8.50 H Absolute Lymphs (auto) 1.60 Absolute Monos (auto) 1.10 H Absolute Eos (auto) 0.80 H Absolute Basos (auto) 0.20 H Neutrophils % 69.1 Lymphocytes % 13.3 L Monocytes % 8.9 Eosinophils % 6.7 H Basophils % 2.0 Total Bilirubin Cancelled AST Cancelled ALT Cancelled Alkaline Phosphatase Cancelled Serum Total Protein Cancelled Albumin Cancelled Globulin Cancelled Albumin/Globulin Ratio Cancelled 10/19/20 16:39 CXR report negative. 10/19/20 17:02 EKG NSR 92/min, normal tracing. COVID negative. 10/19/20 17:13 Elevated d-dimer noted. Has been significantly elevated previously. NAD. SAO2 95% RA. P 94. BP 136/80. No leg swelling or pain, no known hx PE/DVT. Assess acute asthma, bronchitis. No pneumonia. COVID negative. Clinical picture not suggestive of PE. MDI Albuterol given. 10/19/20 18:42 10/19/20 15:44 Albuterol Inhaler [Ventolin Hfa Inhaler] 2 puff INH PRN PRN 10/19/20 15:45 BLOOD CULTURE Stat EKG STAT 10/19/20 16:00 B-TYPE NATRIURETIC PEPTIDE/BNP Stat C-REACTIVE PROTEIN Stat CARDIAC PANEL,ER Stat LD-L/LDH Stat Laboratory Results - last 24 hr 10/19/20 10/19/20 10/19/20 16:00 16:00 16:00 WBC 12.3 H RBC 4.84 Hgb 14.6 Hct 43.3 MCV 89.6 MCH 30.2 MCHC 33.7 RDW 14.8 H Plt Count 291 MPV 7.8 Absolute Neuts (auto) 8.50 H Absolute Lymphs (auto) 1.60 Absolute Monos (auto) 1.10 H Absolute Eos (auto) 0.80 H Absolute Basos (auto) 0.20 H Neutrophils % 69.1 Lymphocytes % 13.3 L Monocytes % 8.9 Eosinophils % 6.7 H Basophils % 2.0 PT 10.8 Cancelled INR 1.09 Cancelled PTT (SP) 28.0 Cancelled Fibrinogen 382 D-Dimer, Quantitative 1410.0 H* Sodium 138 Potassium 3.8 Chloride 101 Carbon Dioxide 27 Anion Gap 13.8 BUN < 6 L Creatinine 0.88 BUN/Creatinine Ratio 6.8 L Random Glucose 104 Serum Osmolality 273.6 L Calcium 9.1 Magnesium 1.6 L Ferritin 107.3 Total Bilirubin Cancelled AST Cancelled ALT Cancelled Alkaline Phosphatase Cancelled LD Total 114 Creatine Kinase 156 CK-MB (CK-2) 2.9 CK-MB (CK-2) % Not Reportable Troponin I 0.04 C-Reactive Protein 2.0 H Serum Total Protein Cancelled Albumin Cancelled Globulin Cancelled Albumin/Globulin Ratio Cancelled Departure - Departure Clinical Impression: Bronchitis Asthma with exacerbation Qualifiers: Asthma severity: mild Asthma persistence: intermittent Qualified Code(s): J45.21 - Mild intermittent asthma with (acute) exacerbation Time of Disposition: 17:20 Disposition: Discharge to Home or Self Care Condition: Good Departure Forms: ED Discharge - Pt. Copy Diet: regular diet Referrals: PRAMOD MANDEL MD [Primary Care Provider] - 1-2 Weeks Prescriptions: Albuterol Inhaler [Ventolin Hfa Inhaler] 2 puff INH Q4HR PRN #1 inh PRN Reason: Shortness Of Breath/Wheezing predniSONE 20 mg PO DAILY 5 Days #15 tab predniSONE 60 mg PO DAILY 5 Days #15 tab Albuterol Inhaler [Ventolin Hfa Inhaler] 0 gm INH Q4H PRN #1 inh PRN Reason: Wheezing Azithromycin [Zithromax Z-Hever] 250 mg PO DAILY 5 Days #6 tab MDD 500 Azithromycin [Zithromax Z-Hever] 250 mg PO DAILY 5 Days #6 tab MDD 500 Home Medications: Ambulatory Orders Gabapentin 100 mg PO TID 08/27/18 Finasteride 5 mg PO DAILY 10/17/18 Pantoprazole Sodium 40 mg PO DAILY 11/23/18 Tamsulosin [Flomax] 0.4 mg PO QD #10 cap 12/20/18 Acetaminophen [Tylenol] 500 mg PO Q6H PRN #120 tab 05/29/20 Bifidobacterium Infantis [Align] 4 mg PO DAILY cap 05/29/20 Cefdinir [Omnicef] 300 mg PO BID #12 cap 05/29/20 Levalbuterol Nebs [Xopenex NEBS] 3 ml INH TID PRN #90 vial 05/29/20 Magnesium Hydroxide [Milk Of Magnesia] 30 ml PO DAILY PRN #30 ud 05/29/20 Metoprolol Tartrate 50 mg PO BID #60 tab 05/29/20 Prednisone See Taper PO DAILY 12 Days #30 tab 05/29/20 Albuterol Inhaler [Ventolin Hfa Inhaler] 0 gm INH Q4H PRN #1 inh 10/19/20 Albuterol Inhaler [Ventolin Hfa Inhaler] 2 puff INH Q4HR PRN #1 inh 10/19/20 Azithromycin [Zithromax Z-Hever] 250 mg PO DAILY 5 Days #6 tab MDD 500 10/19/20 Azithromycin [Zithromax Z-Hever] 250 mg PO DAILY 5 Days #6 tab MDD 500 10/19/20 predniSONE 20 mg PO DAILY 5 Days #15 tab 10/19/20 predniSONE 60 mg PO DAILY 5 Days #15 tab 10/19/20
--- NOTE | 2020-10-19 16:23 | RAD ---
EXAM DESCRIPTION: Chest,1 View CLINICAL HISTORY: 80 years Male, Cough fever COMPARISON: May 27, 2020 FINDINGS: One view/radiograph Heart size and pulmonary vessels are within normal limits. There is no pneumothorax or pleural effusion. The lungs are clear bilaterally. The soft tissues are unremarkable. No acute osseous findings. IMPRESSION: No acute cardiopulmonary abnormality. Electronically signed by: Julien Lugo MD 10/19/2020 4:22 PM [facility]
[2020-10-19 17:09] VITALS: O2SAT 93
[2020-10-19] MEDS ORDERED: predniSONE 20 MG TAB PO ONE (17:35)
[2020-10-19 19:01] VITALS: BP 132/88; TEMP 98.6
== END 2020-10-19 18:40 | disposition home or self-care (01) ==
LOC: ER 15:22
DX: J45.21 Mild intermittent asthma with (acute) exacerbation (principal); I10 Essential (primary) hypertension; Z20.822 Contact with and (suspected) exposure to COVID-19; Z87.891 Personal history of nicotine dependence; Z79.899 Other long term (current) drug therapy; Z91.041 Radiographic dye allergy status
CPT/HCPCS: 36415; 71045; 80048; 82550; 82553; 82728; 83615; 83880; 84484; 85025; 85379; 85384; 85610; 85730; 86140; 87040; 87635; 93005; 94664; J7512

== ENCOUNTER 2020-11-11 10:09 | Emergency (ER) | payer MEDICARE ==
[2020-11-11 10:33] VITALS: O2SAT 95
--- NOTE | 2020-11-11 10:50 | RAD ---
EXAM DESCRIPTION: Chest,1 View CLINICAL HISTORY: 80 years Male, sob COMPARISON: Previous chest x-ray October 19, 2020 TECHNIQUE: AP portable chest. FINDINGS: Heart size is prominent with patchy infiltrates are seen in the lung bases. Ill-defined infiltrate in the peripheral right midlung. These findings may be new or increased compared to previous study, worrisome for pneumonia. pulmonary vascularity. No pulmonary mass or worrisome nodule. No pneumothorax or pleural effusion. Bones are unremarkable. IMPRESSION: Patchy bilateral infiltrates worrisome for pneumonia. Electronically signed by: Del Valdes MD 11/11/2020 10:48 AM [facility]
[2020-11-11] MEDS ORDERED: IPRATROPIUM/ALBUTEROL 3 ML VIAL NEB ONE (11:10)
[2020-11-11] MEDS ORDERED: predniSONE 20 MG TAB PO ONE (11:43)
[2020-11-11] MEDS ORDERED: AMOXICILLIN & POT CLAVULANATE 875 MG TAB PO ONE (11:43)
[2020-11-11] MEDS ORDERED: levoFLOXacin 500 MG TAB PO ONE (11:43)
--- NOTE | 2020-11-11 11:45 | ED.PDOC ---
History of Present Illness - General Chief Complaint: Respiratory Problem Stated Complaint: shortness of breath, cough Time Seen by Provider: 11/11/20 10:15 Source: patient Exam Limitations: no limitations - History of Present Illness Initial Comments: The patient is a 80-year-old male presented emergency room secondary to reports of increased shortness of breath and cough over the last week or so. Questionable fevers. Minimally productive cough. No real chest pain. He has had a mild runny nose. He does have a long dwelling urinary catheter. He has had multiple pneumonias in the past. He does apparently have a history of reactive airway disease. He is pleasant and cooperative but a poor historian. He does have home health. He is not hypoxic or in respiratory distress. The patient does have scattered wheezes upon exam. Good air movement. 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 He reports there is a cancer to his foot. Timing/Duration: 1 week Severity: moderate Improving Factors: nothing Worsening Factors: nothing Associated Symptoms: cough, malaise, shortness of breath Allergies/Adverse Reactions: Allergies Iodine Allergy (Verified 10/19/20 15:48) Povidone Iodine [From Betadine] Allergy (Verified 10/19/20 15:48) Home Medications: Ambulatory Orders Gabapentin 100 mg PO TID 08/27/18 Finasteride 5 mg PO DAILY 10/17/18 Pantoprazole Sodium 40 mg PO DAILY 11/23/18 Albuterol Inhaler [Ventolin Hfa Inhaler] 0 gm INH Q4H PRN #1 inh 10/19/20 Amoxicillin & Pot Clavulanate [Augmentin Tab] 875 mg PO BID #14 tab 11/11/20 Aspirin [Aspirin 81 Low Dose] 81 mg PO DAILY 11/11/20 Finasteride 5 mg PO DAILY 11/11/20 Gabapentin 100 mg PO BID 11/11/20 Metoprolol Tartrate 25 mg PO BID 11/11/20 levoFLOXacin [Levaquin] 500 mg PO DAILY #7 tab 11/11/20 predniSONE [Prednisone] 20 mg PO DAILY #5 tab 11/11/20 Review of Systems - Review of Systems Constitutional: States: malaise EENTM: States: nose congestion Respiratory: States: cough, short of breath - Mild Cardiology: States: no symptoms reported Gastrointestinal/Abdominal: States: no symptoms reported Genitourinary: States: no symptoms reported Musculoskeletal: States: no symptoms reported Skin: States: see HPI Neurological: States: see HPI Endocrine: States: no symptoms reported All other Systems: Reviewed and Negative Past Medical History (General) - Patient Medical History Hx Seizures: No Hx Stroke: No Hx Dementia: No Hx Asthma: Yes Hx of COPD: No Hx Cardiac Disorders: Yes - PVD Hx Congestive Heart Failure: No Hx Pacemaker: No Hx Hypertension: Yes Hx Thyroid Disease: No Hx Diabetes: No Hx Gastroesophageal Reflux: No Hx Renal Disease: No Hx Cancer: Yes Hx of HIV: No Hx Hepatitis C: No Hx MRSA: No Surgical History: appendectomy, other - Vaccination History Hx Tetanus, Diphtheria Vaccination: Yes Hx Influenza Vaccination: Yes - 2020 Hx Pneumococcal Vaccination: Yes - Social History Hx Tobacco Use: Yes - Quit 1959' Hx Chewing Tobacco Use: No Hx Alcohol Use: No Hx Substance Use: No Hx Substance Use Treatment: No Hx Depression: No Hx Physical Abuse: No Hx Emotional Abuse: No Hx Suspected Abuse: No - Female History Patient : No Family Medical History - Family History Mother Family History: Unknown Living Status: Hx Family Diabetes: Yes - dad Hx Family Cancer: Yes - throat-mom;pancreas-brother in remission Father Family History: Unknown Living Status: Physical Exam - Physical Exam General Appearance: Alert, Anxious, Frail, No apparent distress Eye Exam: bilateral normal Ears, Nose, Throat: hearing grossly normal - Mildly chronically decreased bilaterally. 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 Skin Exam: normal color Comments: Vital Signs - 24 hr 11/11/20 11/11/20 10:28 11:26 Temperature 98.1 F Pulse Rate 122 H Pulse Rate [ 115 H left brachial] Respiratory 20 22 Rate Blood Pressure 176/96 [left brachial] O2 Sat by Pulse 95 95 Oximetry Progress - Progress Progress: 11/11/20 11:48 The patient is an 80-year-old male presented emergency room secondary to some shortness of breath. The patient appears to have mild scattered pneumonia along with his reactive airway disease. Additionally the patient does have a catheter associated urinary tract infection. Due to these 2 infections he is going to be placed on double coverage antibiotics with Augmentin and Levaquin for the next 7 days. He is not in respiratory distress and not hypoxic. He is going to be placed on prednisone for the next 5 days at 20 mg daily for the reactive airway component. He needs to keep himself well- hydrated. Obviously if the patient is worsening rather than improving, then he would need to be reevaluated and possibly admitted for IV antibiotic therapy. At this point in time there is no obvious requirement for admission. He did test negative for coronavirus today. He does need to continue using his inhalers. ER warnings are given. [email or web address] [id number] - Results/Orders Results/Orders: Chest x-ray shows scattered pulmonary infiltrates. Rapid Covid test is negative. Rapid flu is negative. EKG shows sinus tachycardia with PACs at 107 bpm. Mild right axis deviation. Borderline R wave progression. Mild left atrial dilation. No ST segment or T wave changes indicative of acute ischemia. Normal QT interval. Laboratory Tests 11/11/20 11/11/20 11/11/20 10:45 10:45 10:55 WBC 15.0 H RBC 4.48 L Hgb 13.4 L Hct 40.0 L MCV 89.3 MCH 29.9 MCHC 33.5 RDW 14.9 H Plt Count 335 MPV 7.8 Absolute Neuts (auto) 11.70 H Absolute Lymphs (auto) 1.90 Absolute Monos (auto) 1.20 H Absolute Eos (auto) 0.10 Absolute Basos (auto) 0.10 Neutrophils % 78.0 Lymphocytes % 12.6 L Monocytes % 7.7 Eosinophils % 1.0 Basophils % 0.7 Sodium 131 L Potassium 4.6 Chloride 95 L Carbon Dioxide 24 Anion Gap 16.6 BUN 13 Creatinine 1.03 BUN/Creatinine Ratio 12.6 Random Glucose 158 H Serum Osmolality 266.1 L Calcium 9.1 Magnesium 1.8 Total Bilirubin 1.9 H AST 19 ALT 11 Alkaline Phosphatase 63 Creatine Kinase 59 CK-MB (CK-2) 1.7 CK-MB (CK-2) % Not Reportable Troponin I 0.04 B-Natriuretic Peptide 15.1 Serum Total Protein 7.8 Albumin 3.9 Globulin 3.9 H Albumin/Globulin Ratio 1.0 L Urine Color Dk yellow Urine Appearance Cloudy Urine pH 6.0 Ur Specific Grace 1.025 Urine Protein 100 H Urine Glucose (UA) Negative Urine Ketones Trace Urine Blood Small H Urine Nitrite Negative Urine Bilirubin Small H Urine Urobilinogen 1.0 Ur Leukocyte Esterase Moderate H Urine RBC 10-20 H Urine WBC Tntc H Ur Epithelial Cells 0 Urine Bacteria 4+ H Departure - Departure Clinical Impression: UTI (urinary tract infection) due to urinary indwelling catheter Bilateral pneumonia Qualifiers: Pneumonia type: due to unspecified organism Lung location: unspecified part of lung Qualified Code(s): J18.9 - Pneumonia, unspecified organism Disposition: Discharge to Home or Self Care Condition: Fair Departure Forms: ED Discharge - Pt. Copy, Patient Portal Self Enrollment Instructions: Pneumonia in Adults, Urinary Tract Infection, Adult (DC) Diet: regular diet Activity: increase activity as tolerated Referrals: PRAMOD MANDEL MD [Primary Care Provider] - 1-2 Weeks Prescriptions: Amoxicillin & Pot Clavulanate [Augmentin Tab] 875 mg PO BID #14 tab levoFLOXacin [Levaquin] 500 mg PO DAILY #7 tab predniSONE [Prednisone] 20 mg PO DAILY #5 tab Home Medications: Ambulatory Orders Gabapentin 100 mg PO TID 08/27/18 Finasteride 5 mg PO DAILY 10/17/18 Pantoprazole Sodium 40 mg PO DAILY 11/23/18 Albuterol Inhaler [Ventolin Hfa Inhaler] 0 gm INH Q4H PRN #1 inh 10/19/20 Amoxicillin & Pot Clavulanate [Augmentin Tab] 875 mg PO BID #14 tab 11/11/20 Aspirin [Aspirin 81 Low Dose] 81 mg PO DAILY 11/11/20 Finasteride 5 mg PO DAILY 11/11/20 Gabapentin 100 mg PO BID 11/11/20 Metoprolol Tartrate 25 mg PO BID 11/11/20 levoFLOXacin [Levaquin] 500 mg PO DAILY #7 tab 11/11/20 predniSONE [Prednisone] 20 mg PO DAILY #5 tab 11/11/20 Additional Instructions: The patient is an 80-year-old male presented emergency room secondary to some shortness of breath. The patient appears to have mild scattered pneumonia along with his reactive airway disease. Additionally the patient does have a catheter associated urinary tract infection. Due to these 2 infections he is going to be placed on double coverage antibiotics with Augmentin and Levaquin for the next 7 days. He is not in respiratory distress and not hypoxic. He is going to be placed on prednisone for the next 5 days at 20 mg daily for the reactive airway component. He needs to keep himself well- hydrated. Obviously if the patient is worsening rather than improving, then he would need to be reevaluated and possibly admitted for IV antibiotic therapy. At this point in time there is no obvious requirement for admission. He did test negative for coronavirus today. He does need to continue using his inhalers. ER warnings are given.
[2020-11-11 12:39] VITALS: BP 122/73; TEMP 97.3
== END 2020-11-11 13:00 | disposition home or self-care (01) ==
LOC: ER 10:09
DX: J18.9 Pneumonia, unspecified organism (principal); T83.518A Infection and inflammatory reaction due to other urinary catheter, initial encounter; N39.0 Urinary tract infection, site not specified; R00.0 Tachycardia, unspecified; I49.1 Atrial premature depolarization; J45.909 Unspecified asthma, uncomplicated; I10 Essential (primary) hypertension; Z20.822 Contact with and (suspected) exposure to COVID-19; Z85.89 Personal history of malignant neoplasm of other organs and systems; Z87.891 Personal history of nicotine dependence; Z79.899 Other long term (current) drug therapy; Z79.82 Long term (current) use of aspirin; Z91.041 Radiographic dye allergy status; Z87.01 Personal history of pneumonia (recurrent)
CPT/HCPCS: 36415; 71045; 80053; 81001; 82550; 82553; 83735; 83880; 84484; 85025; 87086; 87502; 87635; 93005; 94640; 94760; J7512; J7620